=== PATIENT | male | born 1940 | race Caucasian/White ===

== ENCOUNTER → 2016-11-07 | Outpatient (CLI) | payer OTHER ==
--- NOTE | 2016-11-08 13:49 | MR ---
EXAMINATION TYPE: MR lumbar spine wo con DATE OF EXAM: 11/07/2016 11:19 AM COMPARISON: 03/21/2014 HISTORY: low back pain for many years CONTRAST: 0 mL intravenous Omniscan. TECHNIQUE: Multiplanar, multisequence images of the lumbar spine were acquired. FINDINGS: L5-S1: There is loss of disc height is level. Residual disc bulge has mild anterior thecal sac compre ssion. This may be slightly greater to the right paracentral region. Correlate with right S1 radicula r symptoms. Mild facet hypertrophy is present. The foramen are patent L4-L5: There is a central disc herniation with mild anterior thecal sac compression. No AP spinal can al stenosis present. Facet hypertrophy and ligamentum flavum laxity is present. Neural foramen are pa tent. L3-L4: Minimal disc bulge is present with anterior thecal sac flattening. No spinal canal stenosis. No foraminal stenosis. Facet hypertrophy is present.. L2-L3: No significant disc bulge or disc herniation. No spinal canal stenosis. No foraminal stenosi s. Neural foramen are patent.. L1-L2: No significant disc bulge or disc herniation. No spinal canal stenosis. No foraminal stenosi s. Neural foramen are patent.. T12-L1: No significant disc bulge or disc herniation. No spinal canal stenosis. No foraminal stenos is. Neural foramen are patent.. Exam is stable from prior study. IMPRESSION: 1. Central disc herniation L5-S1 with degenerative disc changes. This likely is right S1 nerve root c ompression. Correlate with radicular symptoms. 2. Central disc bulging L4-5 with mild anterior thecal sac compression. 3. Examination appears stable from 2013
== END | disposition home or self-care (01) ==
LOC: RADMRIMAIN 10:23
PROVIDERS: ATTEND Physician Assistant
DX: M51.27 Other intervertebral disc displacement, lumbosacral region (principal); M51.37 Other intervertebral disc degeneration, lumbosacral region
CPT/HCPCS: 72148

== ENCOUNTER → 2017-05-21 | Outpatient (CLI) | payer OTHER ==
--- NOTE | 2017-05-21 12:43 | MR ---
EXAMINATION TYPE: MR hips BILAT wo con DATE OF EXAM: 05/21/2017 COMPARISON: NONE HISTORY: loose body deshaun hips, hip pain Standard multiplanar, multisequence MRI departmental protocol Multiplanar, multisequence images of both hips were acquired. Diffusion weighted imaging was performe d. FINDINGS: Right hip: There is cephalad joint space narrowing and acetabular roof sclerosis. Labrum is grossly i ntact given the limitation of a nonarthrographic study. Small joint effusion is seen just superior to the ligamentum teres with intermediate signal complexity most suggestive of mild synovitis. Small ibarra bchondral cysts are seen of the posterior acetabular roof from osteoarthropathy. No evidence of acute fracture or dislocation. No bone marrow edema. No evidence of femoral head flattening. No MR evidenc e of avascular necrosis. Left hip: There is cephalad joint space narrowing and acetabular sclerosis. No subchondral cysts are seen within the acetabulum or femoral head. No evidence of joint effusion. No fracture or dislocation . No bone marrow edema. No flattening of the femoral head. No evidence of avascular necrosis. Artifac t is seen on the sagittal image through the anterior acetabulum abutting the anterior labrum although no discrete labral abnormality is seen given the limitations of a nonarthrogram examination. 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 Additionally ther e is decreased T2 signal of the peripheral zones in a somewhat linear fashion. No small [id number] images for prostate protocol were obtained to evaluate for discrete suspicious nodular regions. IMPRESSION: 1. Small right hip joint effusion with synovitis. 2. 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 3. No gross evidence of labral tear given the limitations of this nonarthrographic examination. 4. Diffuse heterogeneity and prosthetic last enlargement with at least moderate central gland benign prostatic hyperplasia. Decreased signal in the peripheral zones suggests at least chronic prostatitis , however evaluation for suspicious nodule is limited on this exam. Correlate with history and trendi ng PSA.
== END | disposition home or self-care (01) ==
LOC: RADMRIMAIN 08:30
PROVIDERS: ATTEND Physician Assistant Medical
DX: M16.0 Bilateral primary osteoarthritis of hip (principal); M65.88 Other synovitis and tenosynovitis, other site

== ENCOUNTER 2018-09-01 22:02 | Emergency (ER) | payer OTHER, MEDICARE ==
[2018-09-01 22:21] VITALS: RESP 18
[2018-09-01] MEDS ORDERED: IBUPROFEN 400 MG TAB PO STA (23:14)
--- NOTE | 2018-09-01 23:18 | ED ---
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 Place Fall Occurred: home Loss of Consciousness: none Prolonged Down Time?: no Symptoms Prior to Fall: none Location - Extremities: Left: Forearm Quality: aching Context: tripped/slipped - Related Data Home Medications Medication Instructions Recorded Confirmed Aspirin 325 mg PO DAILY 03/05/14 08/19/16 Benazepril HCl 20 mg PO DAILY 03/05/14 08/19/16 Dipyridamole 50 mg PO QID 03/05/14 08/19/16 Fluticasone Propionate [Flonase] 1 - 2 spray EA NOSTRIL DAILY 03/05/14 08/19/16 Hydrochlorothiazide [Hydrodiuril] 20 mg PO DAILY 03/05/14 08/19/16 Omeprazole [PriLOSEC] 20 mg PO QAM 03/05/14 08/19/16 Zolpidem [Ambien] 10 mg PO HS PRN 03/05/14 08/19/16 amLODIPine [Norvasc] 10 mg PO QAM 03/05/14 08/19/16 valACYclovir [Valtrex] 500 mg PO BID 03/05/14 08/19/16 EPINEPHrine (Auto Inject) [Epipen] 0.3 mg IM ONCE PRN 01/09/15 08/19/16 Multivitamin [Men's Multi-Vitamin] 1 each PO BID 01/09/15 08/19/16 Previous Rx's Medication Instructions Recorded Famotidine [Pepcid] 20 mg PO DAILY #3 tablet 08/20/16 predniSONE 50 mg PO DAILY #3 tab 08/20/16 Ibuprofen [Motrin] 600 mg PO Q8HR PRN #20 tab 09/02/18 Allergies Allergy/AdvReac Type Severity Reaction Status Date / Time clopidogrel bisulfate Allergy Itching Verified 09/01/18 23:55 [From Plavix] venom-honey bee Allergy Swelling Verified 09/01/18 23:55 [bee venom (honey bee)] Review of Systems ROS Statement: Those systems with pertinent positive or pertinent negative responses have been documented in the HPI. ROS Other: All systems not noted in ROS Statement are negative. Constitutional: Denies: weakness Eyes: Denies: vision change Respiratory: Denies: cough, dyspnea Cardiovascular: Denies: chest pain, syncope Gastrointestinal: Denies: abdominal pain Musculoskeletal: Reports: as per HPI, myalgia. 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 [place]-HAS HEARING AIDES BUT DOESN'T WEAR THEM. ENLARGED PROSTATE, BILAT CATARACTS, HYPOGLYCEMIA, HITAL HERNIA History of Any Multi-Drug Resistant Organisms: None Reported Additional Past Surgical History / Comment(s): HX BUNIONECTOMY, COLONOSCOPY Past Anesthesia/Blood Transfusion Reactions: Motion Sickness Additional Past Anesthesia/Blood Transfusion Reaction / Comment(s): HX MENIERE' S DISEASE Past Psychological History: No Psychological Hx Reported Smoking Status: Never smoker Past Alcohol Use History: Occasional Past Drug Use History: None Reported General Exam Limitations: no limitations General appearance: alert, in no apparent distress Head exam: Present: atraumatic, normocephalic Eye exam: Present: normal appearance, PERRL, EOMI. Absent: scleral icterus, conjunctival injection Neck exam: Present: normal inspection, full ROM. Absent: tenderness Respiratory exam: Absent: chest wall tenderness GI/Abdominal exam: Absent: tenderness, guarding, rebound Extremities exam: Present: full ROM, tenderness, normal capillary refill Left Shoulder Exam: Present: normal inspection, full ROM. Absent: tenderness, swelling Upper Arm exam: Present: full ROM, tenderness, swelling, ecchymosis. Absent: abrasion, laceration, deformity, crepidus, dislocation, erythema Elbow exam: Present: normal inspection, full ROM. Absent: tenderness, swelling Forearm Wrist exam: Present: full ROM, tenderness, swelling, ecchymosis. Absent : abrasion, laceration, deformity, crepitus, dislocation Hand Wrist exam: Present: normal inspection, full ROM. Absent: tenderness, swelling Neurosensory exam: Present: radial nerve intact, ulnar nerve intact, median nerve intact Vascular: Present: normal capillary refill, radial pulse (Normal) Back exam: Absent: paraspinal tenderness, vertebral tenderness Neurological exam: Present: alert Skin exam: Present: warm, dry, intact, normal color. Absent: rash Course Vital Signs 09/01/18 22:16 Temperature 98.5 F Pulse Rate 88 Respiratory 18 Rate Blood Pressure 181/75 O2 Sat by Pulse 97 Oximetry Disposition Clinical Impression: Fall, Contusion of arm, left, multiple sites Disposition: HOME SELF-CARE Condition: Good Instructions: Contusion in Adults (ED) Prescriptions: Ibuprofen [Motrin] 600 mg PO Q8HR PRN #20 tab PRN Reason: Pain Is patient prescribed a controlled substance at d/c from ED?: No Referrals: Fidel Harmon DO [Primary Care Provider] - 1-2 days
--- NOTE | 2018-09-02 00:08 | XR ---
EXAMINATION TYPE: XR forearm LT DATE OF EXAM: 09/01/2018 COMPARISON: NONE HISTORY: Fall. Pain. TECHNIQUE: 2 views FINDINGS: The radius and ulna appear intact. I see no fracture nor dislocation. Elbow joint and wrist joint appear intact. IMPRESSION: Negative left forearm exam. Small spur noted on the olecranon process of the ulna.
[2018-09-02 00:41] VITALS: BP 166/91; PULSE 80; TEMP 98
== END 2018-09-02 00:44 | disposition home or self-care (01) ==
LOC: EC 22:02
DX: S40.022A Contusion of left upper arm, initial encounter (principal); S50.12XA Contusion of left forearm, initial encounter; I10 Essential (primary) hypertension; K21.9 Gastro-esophageal reflux disease without esophagitis; H91.93 Unspecified hearing loss, bilateral; B02.30 Zoster ocular disease, unspecified; Z88.8 Allergy status to other drugs, medicaments and biological substances; Z91.030 Bee allergy status; Z79.51 Long term (current) use of inhaled steroids; Z79.82 Long term (current) use of aspirin; Z79.899 Other long term (current) drug therapy; Z79.02 Long term (current) use of antithrombotics/antiplatelets; Z86.73 Personal history of transient ischemic attack (TIA), and cerebral infarction without residual deficits; Z96.20 Presence of otological and audiological implant, unspecified; W10.9XXA Fall (on) (from) unspecified stairs and steps, initial encounter; Y92.009 Unspecified place in unspecified non-institutional (private) residence as the place of occurrence of the external cause
CPT/HCPCS: 99283

== ENCOUNTER → 2020-02-16 | Outpatient (CLI) | payer OTHER ==
[2020-02-16 18:11] LABS: Gliadin AB IgA, Deaminated NEGATIVE (NEGATIVE); Gliadin AB IgA, Unit 0.3 U/mL; Gliadin AB IgG, Deaminated NEGATIVE (NEGATIVE)
== END | disposition home or self-care (01) ==
LOC: LABWHC1 09:03
PROVIDERS: ATTEND Internal Medicine Gastroenterology
DX: K58.0 Irritable bowel syndrome with diarrhea (principal)
CPT/HCPCS: 36415; 83516

== ENCOUNTER 2021-01-01 08:05 | Emergency (ER) | payer MEDICARE, OTHER ==
[2021-01-01 08:29] VITALS: RESP 18
--- NOTE | 2021-01-01 09:20 | ED ---
General Adult HPI - General Chief complaint: Recheck/Abnormal Lab/Rx Stated complaint: trouble sleeping Time Seen by Provider: 01/01/21 08:35 Source: patient Mode of arrival: ambulatory Limitations: no limitations - History of Present Illness Initial comments: 80-year-old male with a past medical history of CVA, GERD, hypertension was in city emergency room for a chief complaint of balance issues. Patient states that for quite some time at least several months he has had it states he has been seeing his primary care provider for this and being worked up for Parkinson's. States that he days ago he lost his balance and hit his head against the wall. Patient states he also has not been able to sleep well for the past 2 months. He states this is "getting to him." Patient was not sure what to do so came to the ER.Patient has no other complaints at this time including shortness of breath, chest pain, abdominal pain, nausea or vomiting, headache, or visual changes. - Related Data Home Medications Medication Instructions Recorded Confirmed Aspirin 325 mg PO DAILY 03/05/14 08/19/16 Dipyridamole 50 mg PO QID 03/05/14 08/19/16 Omeprazole [PriLOSEC] 20 mg PO QAM 03/05/14 08/19/16 Zolpidem [Ambien] 10 mg PO HS PRN 03/05/14 08/19/16 amLODIPine [Norvasc] 10 mg PO QAM 03/05/14 08/19/16 hydroCHLOROthiazide [Hydrodiuril] 20 mg PO DAILY 03/05/14 08/19/16 EPINEPHrine (Auto Inject) [Epipen] 0.3 mg IM ONCE PRN 01/09/15 08/19/16 Multivitamin [Men's Multi-Vitamin] 1 each PO BID 01/09/15 08/19/16 Acyclovir 400 mg PO BID 01/01/21 01/01/21 Allopurinol [Zyloprim] 100 mg PO DAILY 01/01/21 01/01/21 Benazepril HCl 40 mg PO DAILY 01/01/21 01/01/21 Bimatoprost [Lumigan .01% Ophth 1 drop BOTH EYES HS 01/01/21 01/01/21 Soln] Dicyclomine [Bentyl] 10 mg PO QID 01/01/21 01/01/21 Finasteride [Proscar] 5 mg PO DAILY 01/01/21 01/01/21 Potassium Chloride ER [K-Dur 20] 20 meq PO BID 01/01/21 01/01/21 Tadalafil [Cialis] 5 mg PO DAILY 01/01/21 01/01/21 Allergies Allergy/AdvReac Type Severity Reaction Status Date / Time clopidogrel bisulfate Allergy Itching Verified 01/01/21 12:56 [From Plavix] venom-honey bee Allergy Swelling Verified 01/01/21 12:56 [bee venom (honey bee)] Review of Systems ROS Statement: Those systems with pertinent positive or pertinent negative responses have been documented in the HPI. ROS Other: All systems not noted in ROS Statement are negative. 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 [place]-HAS HEARING AIDES BUT DOESN'T WEAR THEM. ENLARGED PROSTATE, BILAT CATARACTS, HYPOGLYCEMIA, HITAL HERNIA History of Any Multi-Drug Resistant Organisms: None Reported Additional Past Surgical History / Comment(s): HX BUNIONECTOMY, COLONOSCOPY Past Anesthesia/Blood Transfusion Reactions: Motion Sickness Additional Past Anesthesia/Blood Transfusion Reaction / Comment(s): HX MENIERE'S DISEASE Past Psychological History: No Psychological Hx Reported Smoking Status: Never smoker Past Alcohol Use History: Occasional Past Drug Use History: None Reported General Exam Limitations: no limitations General appearance: alert, in no apparent distress Head exam: Present: atraumatic, normocephalic, normal inspection Eye exam: Present: normal appearance, PERRL, EOMI. Absent: scleral icterus, conjunctival injection, periorbital swelling ENT exam: Present: normal exam, mucous membranes moist Neck exam: Present: normal inspection, full ROM. Absent: tenderness, meningismus, lymphadenopathy Respiratory exam: Present: normal lung sounds bilaterally. Absent: respiratory distress, wheezes, rales, rhonchi, stridor Cardiovascular Exam: Present: regular rate, normal rhythm, normal heart sounds. Absent: systolic murmur, diastolic murmur, rubs, gallop, clicks GI/Abdominal exam: Present: soft, normal bowel sounds. Absent: distended, tenderness, guarding, rebound, rigid Neurological exam: Present: alert, oriented X3 Course Vital Signs 01/01/21 01/01/21 08:22 11:01 Temperature 97.4 F L 98.0 F Pulse Rate 99 95 Respiratory 18 18 Rate Blood Pressure 200/97 193/97 O2 Sat by Pulse 95 95 Oximetry Medical Decision Making - Medical Decision Making Vitals are stable. Patient is hypertensive but reports he did not take his blood pressure today. He is alert and oriented 3. He is ambulating around the exam room. CBC CMP unremarkable. Urinalysis is negative. CT brain shows atrophy with minimal periventricular chronic-appearing white matter ischemic changes. CT cervical spine shows no acute osseous abnormality. I discussed this case with patient's son Jamil. He reports that these symptoms have been ongoing for quite some time. He states that they're working on getting him diagnosed and into an assisted living home. He does feel the patient is safe to go home. Patient drove to the ER today and is not supposed to drive so therefore his son will pick him up. - Lab Data Result diagrams: 01/01/21 09:17 01/01/21 09:17 Lab Results 01/01/21 01/01/21 01/01/21 Range/Units 09:17 09:17 09:27 WBC 6.9 (3.8-10.6) k/uL RBC 4.49 (4.30-5.90) m/uL Hgb 15.2 (13.0-17.5) gm/dL Hct 41.7 (39.0-53.0) % MCV 92.8 (80.0-100.0) fL MCH 33.8 (25.0-35.0) pg MCHC 36.4 (31.0-37.0) g/dL RDW 12.2 (11.5-15.5) % Plt Count 165 (150-450) k/uL MPV 7.6 Neutrophils % 75 % Lymphocytes % 15 % Monocytes % 6 % Eosinophils % 1 % Basophils % 0 % Neutrophils # 5.2 (1.3-7.7) k/uL Lymphocytes # 1.1 (1.0-4.8) k/uL Monocytes # 0.4 (0-1.0) k/uL Eosinophils # 0.1 (0-0.7) k/uL Basophils # 0.0 (0-0.2) k/uL Sodium 140 (137-145) mmol/L Potassium 3.5 (3.5-5.1) mmol/L Chloride 105 (98-107) mmol/L Carbon Dioxide 27 (22-30) mmol/L Anion Gap 8 mmol/L BUN 13 (9-20) mg/dL Creatinine 0.87 (0.66-1.25) mg/dL Est GFR (CKD-EPI)AfAm >90 (>60 ml/min/1.73 sqM) Est GFR (CKD-EPI)NonAf 83 (>60 ml/min/1.73 sqM) Glucose 194 H (74-99) mg/dL Calcium 9.4 (8.4-10.2) mg/dL Magnesium 1.8 (1.6-2.3) mg/dL Total Bilirubin 0.8 (0.2-1.3) mg/dL AST 34 (17-59) U/L ALT 57 H (4-49) U/L Alkaline Phosphatase 62 (38-126) U/L Total Protein 7.0 (6.3-8.2) g/dL Albumin 4.1 (3.5-5.0) g/dL Urine Color Yellow Urine Appearance Clear (Clear) Urine pH 6.5 (5.0-8.0) Ur Specific Ivor 1.015 (1.001-1.035) Urine Protein 1+ H (Negative) Urine Glucose (UA) Trace H (Negative) Urine Ketones Negative (Negative) Urine Blood Negative (Negative) Urine Nitrite Negative (Negative) Urine Bilirubin Negative (Negative) Urine Urobilinogen <2.0 (<2.0) mg/dL Ur Leukocyte Esterase Negative (Negative) Urine RBC 1 (0-5) /hpf Urine WBC 1 (0-5) /hpf Ur Squamous Epith Cells <1 (0-4) /hpf Urine Mucus Rare H (None) /hpf Disposition Clinical Impression: History of dementia, Insomnia Disposition: HOME SELF-CARE Condition: Good Instructions (If sedation given, give patient instructions): Dementia (ED) Additional Instructions: Please try melatonin at night for sleeping. Try to limit naps during the daytime. Please follow up with primary care in 1-2 days. Return to the emergency room for any worsening symptoms. Is patient prescribed a controlled substance at d/c from ED?: No Referrals: Fidel Harmon DO [Primary Care Provider] - 1-2 days Time of Disposition: 13:04
[2021-01-01 09:35] LABS: Basophils % (A) 0 %; Eosinophils # (A) 0.1 k/uL (0-0.7); Eosinophils % (A) 1 %; HCT 41.7 % (39.0-53.0); HGB 15.2 gm/dL (13.0-17.5); Lymphocytes # (A) 1.1 k/uL (1.0-4.8); Lymphocytes % (A) 15 %; MCH 33.8 pg (25.0-35.0); MCHC 36.4 g/dL (31.0-37.0); MCV 92.8 fL (80.0-100.0); Mean Platelet Volume 7.6; Monocytes # (A) 0.4 k/uL (0-1.0); Monocytes % (A) 6 %; Neutrophils # (A) 5.2 k/uL (1.3-7.7); Neutrophils % (A) 75 %; Platelet Count 165 k/uL (150-450); RBC 4.49 m/uL (4.30-5.90); RDW 12.2 % (11.5-15.5); WBC 6.9 k/uL (3.8-10.6)
[2021-01-01 09:36] LABS: Appearance,Urine Clear (Clear); Bilirubin,Urine Negative (Negative); Blood,Urine Negative (Negative); Color,Urine Yellow; Glucose,Urine (UA) Trace (Negative); Ketones,Urine Negative (Negative); Leukocyte Esterase,Urine Negative (Negative); Mucus,Urine Rare /hpf; Nitrite,Urine Negative (Negative); PH, Urine 6.5 (5.0-8.0); Protein,Urine 1+ (Negative); RBC,Urine 1 /hpf (0-5); Specific Gravity,Urine 1.015 (1.001-1.035); Squamous Epithelial Cell,Urine <1 /hpf (0-4); Urobilinogen,Urine <2.0 mg/dL (<2.0); WBC,Urine 1 /hpf (0-5)
[2021-01-01 09:55] LABS: ALT 57 U/L (4-49); AST 34 U/L (17-59); African American GFR (CKD) >90 (>60 ml/min/1.73 sqM); Albumin 4.1 g/dL (3.5-5.0); Alkaline Phosphatase 62 U/L (38-126); Anion Gap 8 mmol/L; Blood Urea Nitrogen 13 mg/dL (9-20); Calcium 9.4 mg/dL (8.4-10.2); Carbon Dioxide 27 mmol/L (22-30); Chloride 105 mmol/L (98-107); Glucose 194 mg/dL (74-99); Magnesium 1.8 mg/dL (1.6-2.3); Non-African American GFR(CKD) 83 (>60 ml/min/1.73 sqM); Potassium 3.5 mmol/L (3.5-5.1); Sodium 140 mmol/L (137-145); Total Bilirubin 0.8 mg/dL (0.2-1.3)
--- NOTE | 2021-01-01 09:55 | CT ---
EXAMINATION TYPE: CT brain cspine wo con DATE OF EXAM: 01/01/2021 COMPARISON: 06/14/2010 HISTORY: Fall, abrasion to forehead CT DLP: 1403 mGycm, Automated exposure control for dose reduction was used. CONTRAST: None CT of the brain is performed utilizing 3 mm thick sections through the posterior fossa and 3 mm thick sections through the remaining calvarium. Study is performed within 24 hours of arrival to the hospital. No abnormal hyperdensity is present to suggest an acute intracranial hemorrhage. No mass lesion is evident. No acute infarcts are evident. Minimal periventricular white matter hypodensity is present, likely o n the basis of chronic white matter ischemic change. Ventricles and sulci are prominent for the patient age. Paranasal sinuses and mastoid air cells within the [id number] are clear. No acute fractures are ev ident. No significant soft tissue swelling is evident. IMPRESSIONS: 1. Atrophy with minimal periventricular chronic appearing white matter ischemic changes CT cervical spine. COMPARISON: None CT of the cervical spine is performed in the axial plane at 2 mm thick sections. Reconstructed image s in the coronal, and sagittal plane are reviewed on the computer. No acute fractures are evident. Vertebral body alignment is normal. Diffuse disc space narrowing is present. Vertebral body heights are preserved. No spinal canal stenosis is evident. Vertebral joint hypertrophy is present C5-6 with moderate right and mild left foraminal stenosis some additional mild uncovertebral joint hypertrophy is present without stenosis within the remaining cer vical spine. Azygos fissure is noted within the lung lung apices, lung apices appear clear. IMPRESSIONS: 1. No acute osseous abnormality cervical spine. 2. Some mild to moderate foraminal narrowing at the C5-6 level is present from uncovertebral joint op portunity
[2021-01-01] MEDS ORDERED: amLODIPine 10 MG TAB PO STA (12:19)
[2021-01-01 13:42] VITALS: BP 178/90; PULSE 80; TEMP 98.6
== END 2021-01-01 13:42 | disposition home or self-care (01) ==
LOC: EC 08:05
DX: G47.00 Insomnia, unspecified (principal); K21.9 Gastro-esophageal reflux disease without esophagitis; I10 Essential (primary) hypertension; N40.0 Benign prostatic hyperplasia without lower urinary tract symptoms; H81.09 Meniere's disease, unspecified ear; Z86.59 Personal history of other mental and behavioral disorders; Z86.73 Personal history of transient ischemic attack (TIA), and cerebral infarction without residual deficits
CPT/HCPCS: 36415; 70450; 72125; 80053; 81001; 83735; 85025; 93005; 99284

== ENCOUNTER 2021-01-15 14:56 | Inpatient (IN) | payer MEDICARE ==
[2021-01-15] MEDS ORDERED: SODIUM CHLORIDE 0.9% 1,000 ML IV STA (15:36)
--- NOTE | 2021-01-15 15:43 | ED ---
General Adult HPI - General Chief complaint: Fall Stated complaint: Fall, headache Time Seen by Provider: 01/15/21 15:27 Source: patient Mode of arrival: wheelchair Limitations: no limitations - History of Present Illness Initial comments: Dictation was produced using [employer] dictation software. please excuse any grammatical, word or spelling errors. This patient was cared for during a federal and state declared state of emergency secondary to Covid 19 Chief Complaint: 80-year-old male presents after fall History of Present Illness: Patient is a 80-year-old male he has past medical history of stroke, hypertension, prostate disease presents to the emergency department after fall. Patient lives at home by himself however his son who lives in [place] has been staying with him on a rotating schedule with his other siblings. Today he has been very confused and seemingly much more weak than usual. Son went to attend to something else and left the patient unattended. He realizes that patient was taking too long to get ready so he went to check on him. He found him on the floor. There is suspicion that he slipped and fell. Patient has been increasingly weak for the last month. He has not been formally diagnosed with dementia however after appointment with primary care physician they did make an appointment to have patient follow up with the neurologist. That appointment has not occurred yet. Rapid declining for the last month with increased frequency and intensity of bouts of confusion and bizarre behavior. Son is also concerned that patient was having bouts of hematuria. Patient is an unreliable historian. He however does answer some basic questions. He denies any pain at this time. Reports that he is here in the emergency department for evaluation of hematuria. He did not mention anything about the fall. The ROS documented in this emergency department record has been reviewed and confirmed by me. Those systems with pertinent positive or negative responses have been documented in the HPI. All other systems are other negative and/or noncontributory. PHYSICAL EXAM: General Impression: Alert and oriented x2/4, not in acute distress HEENT: Normocephalic atraumatic, extra-ocular movements intact, pupils equal and reactive to light bilaterally, mucous membranes moist. Cardiovascular: Heart regular rate and rhythm Chest: Able to complete full sentences, no retractions, no tachypnea Abdomen: abdomen soft, non-tender, non-distended, no organomegaly Musculoskeletal: Pulses present and equal in all extremities, no peripheral edema Motor: no focal deficits noted Neurological: CN II-XII grossly intact, no focal motor or sensory deficits noted Skin: Intact with no visualized rashes ED course: 80-year-old male presents after fall. He's been having increasing mental status changes over the last month according the son. Patient lives by himself however has family staying with them. Vital signs upon arrival shows heart rate of 118, rest of vital signs within acceptable limits. There is concern for subacute delirium. Laboratory evaluation obtained. CBC, coag panel within acceptable limits. Metabolic panel is within acceptable limits. Urinalysis shows 3+ glucose, moderate blood and 47 red blood cells. Computed tomography scan of the brain shows no acute processes. Chest x-ray showed a small nondisplaced rib fracture of the left rib 9 posterolaterally. Patient did have some point tenderness there. Given the patient had new-onset hematuria and rib fractures concern of renal laceration. CT of the chest abdomen pelvis shows no acute thoracic or abdominal pelvic process. There is a large prostate gland. Patient became uncooperative Tranny get out of bed. Scott catheter was placed. At this point no obvious source of patient's acute delirium. Patient be admitted with neurology consultation. Case discussed with Dr. Langley was went except patient's care. EKG interpretation: Ventricular rate 100, sinus rhythm, MT interval 186, QRS 80, QTc 446. No MT prolongation, no QTC prolongation, no ST or T-wave changes noted. EKG compared to 01/01/2021 showing no changes. Overall, this EKG is unremarkable - Related Data Home Medications Medication Instructions Recorded Confirmed Aspirin 325 mg PO DAILY 03/05/14 01/15/21 Dipyridamole 50 mg PO QID 03/05/14 01/15/21 Omeprazole [PriLOSEC] 20 mg PO BID 03/05/14 01/15/21 amLODIPine [Norvasc] 10 mg PO DAILY 03/05/14 01/15/21 hydroCHLOROthiazide [Hydrodiuril] 50 mg PO DAILY 03/05/14 01/15/21 EPINEPHrine (Auto Inject) [Epipen] 0.3 mg IM ONCE PRN 01/09/15 01/15/21 Acyclovir 400 mg PO BID 01/01/21 01/15/21 Allopurinol [Zyloprim] 100 mg PO HS 01/01/21 01/15/21 Benazepril HCl 40 mg PO DAILY 01/01/21 01/15/21 Bimatoprost [Lumigan .01% Ophth 1 drop BOTH EYES HS 01/01/21 01/15/21 Soln] Dicyclomine [Bentyl] 10 mg PO TID PRN 01/01/21 01/15/21 Finasteride [Proscar] 5 mg PO DAILY 01/01/21 01/15/21 Potassium Chloride ER [K-Dur 20] 40 meq PO DAILY 01/01/21 01/15/21 Tadalafil [Cialis] 5 mg PO DAILY 01/01/21 01/15/21 Potassium Chloride ER [K-Dur 20] 20 meq PO HS 01/15/21 01/15/21 Vit C/E/Zn/Coppr/Lutein/Zeaxan 1 cap PO DAILY 01/15/21 01/15/21 [Preservision Areds 2 Softgel] rOPINIRole HCL [Requip] 0.25 mg PO HS 01/15/21 01/15/21 Allergies Allergy/AdvReac Type Severity Reaction Status Date / Time clopidogrel bisulfate Allergy Itching Verified 01/15/21 17:17 [From Plavix] shellfish derived [Shellfish] Allergy Anaphylaxis Verified 01/15/21 17:17 venom-honey bee Allergy Swelling Verified 01/15/21 17:17 [bee venom (honey bee)] Review of Systems ROS Statement: Those systems with pertinent positive or pertinent negative responses have been documented in the HPI. ROS Other: All systems not noted in ROS Statement are negative. 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 CROW-HAS HEARING AIDES BUT DOESN'T WEAR THEM. ENLARGED PROSTATE, BILAT CATARACTS, HYPOGLYCEMIA, HITAL HERNIA History of Any Multi-Drug Resistant Organisms: None Reported Additional Past Surgical History / Comment(s): HX BUNIONECTOMY, COLONOSCOPY Past Anesthesia/Blood Transfusion Reactions: Motion Sickness Additional Past Anesthesia/Blood Transfusion Reaction / Comment(s): HX MENIERE'S DISEASE Past Psychological History: No Psychological Hx Reported Smoking Status: Never smoker Past Alcohol Use History: Occasional Past Drug Use History: None Reported General Exam Limitations: no limitations Course Vital Signs 01/15/21 01/15/21 15:09 16:17 Temperature 98.2 F Pulse Rate 118 H 81 Respiratory 18 Rate Blood Pressure 150/86 O2 Sat by Pulse 97 Oximetry Medical Decision Making - Lab Data Result diagrams: 01/15/21 16:07 01/15/21 16:07 Lab Results 01/15/21 01/15/21 01/15/21 Range/Units 16:02 16:05 16:07 WBC (3.8-10.6) k/uL RBC (4.30-5.90) m/uL Hgb (13.0-17.5) gm/dL Hct (39.0-53.0) % MCV (80.0-100.0) fL MCH (25.0-35.0) pg MCHC (31.0-37.0) g/dL RDW (11.5-15.5) % Plt Count (150-450) k/uL MPV Neutrophils % % Lymphocytes % % Monocytes % % Eosinophils % % Basophils % % Neutrophils # (1.3-7.7) k/uL Lymphocytes # (1.0-4.8) k/uL Monocytes # (0-1.0) k/uL Eosinophils # (0-0.7) k/uL Basophils # (0-0.2) k/uL PT (9.0-12.0) sec INR (<1.2) APTT (22.0-30.0) sec Sodium (137-145) mmol/L Potassium (3.5-5.1) mmol/L Chloride (98-107) mmol/L Carbon Dioxide (22-30) mmol/L Anion Gap mmol/L BUN (9-20) mg/dL Creatinine (0.66-1.25) mg/dL Est GFR (CKD-EPI)AfAm (>60 ml/min/1.73 sqM) Est GFR (CKD-EPI)NonAf (>60 ml/min/1.73 sqM) Glucose (74-99) mg/dL POC Glucose (mg/dL) 232 H (75-99) mg/dL POC Glu Nurse Transition ID Alissa Aranda Calcium (8.4-10.2) mg/dL Total Bilirubin (0.2-1.3) mg/dL AST (17-59) U/L ALT (4-49) U/L Alkaline Phosphatase (38-126) U/L Total Protein (6.3-8.2) g/dL Albumin (3.5-5.0) g/dL Urine Color Urine Appearance (Clear) Urine pH (5.0-8.0) Ur Specific [place] (1.001-1.035) Urine Protein (Negative) Urine Glucose (UA) (Negative) Urine Ketones (Negative) Urine Blood (Negative) Urine Nitrite (Negative) Urine Bilirubin (Negative) Urine Urobilinogen (<2.0) mg/dL Ur Leukocyte Esterase (Negative) Urine RBC (0-5) /hpf Urine WBC (0-5) /hpf Hyaline Casts (0-2) /lpf Urine Mucus (None) /hpf Blood Type A Negative Blood Type Confirm A Negative Blood Type Recheck No Previous Record Bld Type Recheck Status CABO Indicated Antibody Screen NEGATIVE Spec Expiration Date 01/18/2021 - 230601/15/21 01/15/21 01/15/21 Range/Units 16:07 16:07 16:07 WBC 13.2 H (3.8-10.6) k/uL RBC 4.85 (4.30-5.90) m/uL Hgb 16.1 (13.0-17.5) gm/dL Hct 44.9 (39.0-53.0) % MCV 92.5 (80.0-100.0) fL MCH 33.2 (25.0-35.0) pg MCHC 35.9 (31.0-37.0) g/dL RDW 12.1 (11.5-15.5) % Plt Count 195 (150-450) k/uL MPV 7.6 Neutrophils % 81 % Lymphocytes % 10 % Monocytes % 7 % Eosinophils % 0 % Basophils % 0 % Neutrophils # 10.7 H (1.3-7.7) k/uL Lymphocytes # 1.4 (1.0-4.8) k/uL Monocytes # 0.9 (0-1.0) k/uL Eosinophils # 0.0 (0-0.7) k/uL Basophils # 0.0 (0-0.2) k/uL PT 10.2 (9.0-12.0) sec INR 0.9 (<1.2) APTT 22.6 (22.0-30.0) sec Sodium 137 (137-145) mmol/L Potassium 3.7 (3.5-5.1) mmol/L Chloride 98 (98-107) mmol/L Carbon Dioxide 27 (22-30) mmol/L Anion Gap 12 mmol/L BUN 22 H (9-20) mg/dL Creatinine 0.96 (0.66-1.25) mg/dL Est GFR (CKD-EPI)AfAm 88 (>60 ml/min/1.73 sqM) Est GFR (CKD-EPI)NonAf 76 (>60 ml/min/1.73 sqM) Glucose 212 H (74-99) mg/dL POC Glucose (mg/dL) (75-99) mg/dL POC Glu Nurse Transition ID Calcium 10.4 H (8.4-10.2) mg/dL Total Bilirubin 0.8 (0.2-1.3) mg/dL AST 38 (17-59) U/L ALT 64 H (4-49) U/L Alkaline Phosphatase 72 (38-126) U/L Total Protein 7.7 (6.3-8.2) g/dL Albumin 4.6 (3.5-5.0) g/dL Urine Color Urine Appearance (Clear) Urine pH (5.0-8.0) Ur Specific [place] (1.001-1.035) Urine Protein (Negative) Urine Glucose (UA) (Negative) Urine Ketones (Negative) Urine Blood (Negative) Urine Nitrite (Negative) Urine Bilirubin (Negative) Urine Urobilinogen (<2.0) mg/dL Ur Leukocyte Esterase (Negative) Urine RBC (0-5) /hpf Urine WBC (0-5) /hpf Hyaline Casts (0-2) /lpf Urine Mucus (None) /hpf Blood Type Blood Type Confirm Blood Type Recheck Bld Type Recheck Status Antibody Screen Spec Expiration Date 01/15/21 Range/Units 16:48 WBC (3.8-10.6) k/uL RBC (4.30-5.90) m/uL Hgb (13.0-17.5) gm/dL Hct (39.0-53.0) % MCV (80.0-100.0) fL MCH (25.0-35.0) pg MCHC (31.0-37.0) g/dL RDW (11.5-15.5) % Plt Count (150-450) k/uL MPV Neutrophils % % Lymphocytes % % Monocytes % % Eosinophils % % Basophils % % Neutrophils # (1.3-7.7) k/uL Lymphocytes # (1.0-4.8) k/uL Monocytes # (0-1.0) k/uL Eosinophils # (0-0.7) k/uL Basophils # (0-0.2) k/uL PT (9.0-12.0) sec INR (<1.2) APTT (22.0-30.0) sec Sodium (137-145) mmol/L Potassium (3.5-5.1) mmol/L Chloride (98-107) mmol/L Carbon Dioxide (22-30) mmol/L Anion Gap mmol/L BUN (9-20) mg/dL Creatinine (0.66-1.25) mg/dL Est GFR (CKD-EPI)AfAm (>60 ml/min/1.73 sqM) Est GFR (CKD-EPI)NonAf (>60 ml/min/1.73 sqM) Glucose (74-99) mg/dL POC Glucose (mg/dL) (75-99) mg/dL POC Glu Nurse Transition ID Calcium (8.4-10.2) mg/dL Total Bilirubin (0.2-1.3) mg/dL AST (17-59) U/L ALT (4-49) U/L Alkaline Phosphatase (38-126) U/L Total Protein (6.3-8.2) g/dL Albumin (3.5-5.0) g/dL Urine Color Yellow Urine Appearance Clear (Clear) Urine pH 5.5 (5.0-8.0) Ur Specific [place] 1.020 (1.001-1.035) Urine Protein 1+ H (Negative) Urine Glucose (UA) 3+ H (Negative) Urine Ketones Negative (Negative) Urine Blood Moderate H (Negative) Urine Nitrite Negative (Negative) Urine Bilirubin Negative (Negative) Urine Urobilinogen <2.0 (<2.0) mg/dL Ur Leukocyte Esterase Negative (Negative) Urine RBC 47 H (0-5) /hpf Urine WBC 3 (0-5) /hpf Hyaline Casts 3 H (0-2) /lpf Urine Mucus Rare H (None) /hpf Blood Type Blood Type Confirm Blood Type Recheck Bld Type Recheck Status Antibody Screen Spec Expiration Date Disposition Clinical Impression: Altered mental status Disposition: ADMITTED IP TO THIS [facility] Condition: Fair Referrals: Fidel Harmon DO [Primary Care Provider] - 1-2 days Decision Time: 19:36
--- NOTE | 2021-01-15 15:52 | CT ---
EXAMINATION TYPE: CT brain jazmine snell DATE OF EXAM: 01/15/2021 COMPARISON: Trauma CT 2 weeks ago. HISTORY: Fall injury with headache and neck pain. CT DLP: 1340.8 mGycm. Automated Exposure Control for Dose Reduction was Utilized. TECHNIQUE: CT scan of the head and cervical spine are performed without contrast. FINDINGS: There is no acute intracranial hemorrhage or midline shift identified. Moderate ventricul ar and sulcal prominence redemonstrated. The degree of ventricular prominence slightly out of proport ion to degree of sulcal effacement, normal pressure hydrocephalus not excluded. No significant change from most recent prior study. Moderate Low-attenuation in the deep and periventricular white matter is redemonstrated. The calvarium is intact. The globes are intact and the visualized sinuses are sami r. Cervical spine is visualized in its entirety from C1 through upper thoracic levels and redemonstrates levoconvex scoliotic curvature centered upper thoracic spine without evidence of acute fracture or d islocation. Prevertebral soft tissue appears within normal limits. The C1-C2 articulation remains w ithin normal limits on the coronal images. Loss of normal cervical curvature on sagittal images simil ar to prior. Vertebral body heights are maintained. There is [id number] disc space narrowing an d spurring at C5-C6 level redemonstrated. Posterior spur disc complexes if anterior thecal sac at C3- C4 and C5-C6 level similar to prior. Axial images show multilevel uncovertebral facet degenerative ch anges contributing to multilevel bilateral neural foraminal narrowing for reference left C3-C4 level axial image 41 noted. Thyroid gland is stable and somewhat small in size. Lung apices show no pneumot horax. Moderate calcified plaque right greater than left carotid bulbs is redemonstrated. Some nonspe cific tiny round lucent lesions throughout the cervical vertebra are redemonstrated, for reference ro ughly 5 distinct lesions C2 level coronal image 21. Correlate clinically to exclude multiple myeloma. IMPRESSION: 1. There is no acute fracture or dislocation evident in the cervical spine. 2. No acute intracranial hemorrhage or midline shift is seen. No significant change from recent CT.
[2021-01-15 16:09] LABS: Glucose,Whole Blood 232 mg/dL (75-99)
[2021-01-15 16:25] LABS: Basophils % (A) 0 %; Eosinophils % (A) 0 %; HCT 44.9 % (39.0-53.0); HGB 16.1 gm/dL (13.0-17.5); Lymphocytes # (A) 1.4 k/uL (1.0-4.8); Lymphocytes % (A) 10 %; MCH 33.2 pg (25.0-35.0); MCHC 35.9 g/dL (31.0-37.0); MCV 92.5 fL (80.0-100.0); Mean Platelet Volume 7.6; Monocytes # (A) 0.9 k/uL (0-1.0); Monocytes % (A) 7 %; Neutrophils # (A) 10.7 k/uL (1.3-7.7); Neutrophils % (A) 81 %; Platelet Count 195 k/uL (150-450); RBC 4.85 m/uL (4.30-5.90); RDW 12.1 % (11.5-15.5); WBC 13.2 k/uL (3.8-10.6)
[2021-01-15 16:38] LABS: Albumin 4.6 g/dL (3.5-5.0); Calcium 10.4 mg/dL (8.4-10.2); Potassium 3.7 mmol/L (3.5-5.1); Total Bilirubin 0.8 mg/dL (0.2-1.3); Total Protein 7.7 g/dL (6.3-8.2)
[2021-01-15 16:41] LABS: INR 0.9 (<1.2); Partial Thromboplastin Time 22.6 sec (22.0-30.0); Prothrombin Time 10.2 sec (9.0-12.0)
--- NOTE | 2021-01-15 16:54 | XR ---
EXAMINATION TYPE: XR chest 1V portable DATE OF EXAM: 01/15/2021 CLINICAL HISTORY: fall. Altered mental status. TECHNIQUE: Frontal view of the chest. COMPARISON: 06/16/2010 FINDINGS: The cardiomediastinal silhouette is within normal limits for size. Pulmonary vasculature i s normal. Redemonstrated normal variant azygos lobe. There is no focal air space opacity. No pleural effusion. No pneumothorax seen. Questionable nondisplaced rib fracture of posterolateral left rib 9. IMPRESSION: 1. Questionable nondisplaced rib fracture of left rib 9 posterolaterally. Recommend correlation with point tenderness. 2. Otherwise no acute cardiac pulmonary process.
[2021-01-15 17:11] LABS: Appearance,Urine Clear (Clear); Bilirubin,Urine Negative (Negative); Blood,Urine Moderate (Negative); Color,Urine Yellow; Glucose,Urine (UA) 3+ (Negative); Hyaline Casts,Urine 3 /lpf (0-2); Ketones,Urine Negative (Negative); Leukocyte Esterase,Urine Negative (Negative); Mucus,Urine Rare /hpf; Nitrite,Urine Negative (Negative); PH, Urine 5.5 (5.0-8.0); Protein,Urine 1+ (Negative); RBC,Urine 47 /hpf (0-5); Urobilinogen,Urine <2.0 mg/dL (<2.0); WBC,Urine 3 /hpf (0-5)
[2021-01-15] MEDS ORDERED: ACETAMINOPHEN TAB 500 MG TAB PO PRN (18:12)
--- NOTE | 2021-01-15 18:45 | HP ---
HISTORY AND PHYSICAL DATE OF SERVICE: 01/15/2021 CHIEF COMPLAINTS: Change in mental status, dysarthria and fall and headache. 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 Fidel Harmon in the outpatient setting, was apparently living by himself and the family is actually helping out. The patient had a recent fall and subsequently today the patient was found to be confused much more than the usual and the patient also had some weakness on the right side of the body and the patient was also trying to press the button switch which were not there and the patient also suspicion of slipped and fall and the patient was taken to [facility] and was admitted for further evaluation and treatment. The patient is also being evaluated for Parkinson's and dementia also. There is no history of any fever, rigors. No history of headache, loss of consciousness, seizures at this time. PAST MEDICAL HISTORY: GERD, hearing disorders, hypertension, prostate disorder, CVA, TIA. MEDICATIONS: Home medications are: Requip, HydroDIURIL, Norvasc, Cialis, K-Dur, Prilosec, Proscar, EpiPen, dipyridamole, Bentyl, Lumigan, aspirin, allopurinol, Acyclovir. ALLERGIES: PLAVIX, SHELLFISH, HONEY BEE. FAMILY HISTORY: No history of heart disease or strokes in the family. SOCIAL HISTORY: Occasional alcohol. No history of smoking. REVIEW OF SYSTEMS: ENT diminished vision. Diminished hearing. CARDIOVASCULAR system as mentioned earlier. RESPIRATORY: As mentioned earlier. GI no nausea or vomiting. No diarrhea. : No dysuria. Nervous system: As mentioned earlier. ALLERGY/IMMUNOLOGY: No asthma or hayfever. MUSCULOSKELETAL: As mentioned earlier. HEMATOLOGY/ONCOLOGY: No history of anemia. ENDOCRINE: No history of diabetes or hypothyroidism. CONSTITUTIONAL: As mentioned earlier. DERMATOLOGY: Negative. RHEUMATOLOGY: Negative. PSYCHIATRIC: As mentioned earlier. PHYSICAL EXAMINATION: Alert and oriented x2. Dysarthric. Pulse 118, blood pressure 150/88, respiration 18. Temperature 98.2, pulse ox 97% on room air. HEENT: Conjunctivae normal. Oral mucosa moist. NECK is no jugular venous distention. No carotid bruit. No lymph node enlargement. CARDIOVASCULAR system: S1, S2 muffled. RESPIRATORY: Breath sounds diminished in the bases. No rhonchi. No crackles. ABDOMEN: Soft, nontender. No mass palpable. LEGS are no edema. No swelling. NERVOUS SYSTEM: Higher functions normal. Cranial nerves II-XII grossly intact. Otherwise significant weakness and tremors on the right upper limbs compared to left. Otherwise, gait dysfunction present. SKIN: No ulcers, rashes or bleeding. JOINTS: No active deforming arthropathy. LABS: At this time: WBC 13.2 and INR 1.3. Glucose 212 and ALT 64. UA noted 47 RBCs. ASSESSMENT: 1. Change in mental status and confusion, possible acute stroke involving the left hemisphere. 2. Possible deirdre Parkinson's. 3. Possible acute metabolic encephalopathy. 4. Increased WBC. 5. Increased random glucose and possible diabetes type 2. 6. Increased ALT. 7. Rule out dementia. 8. Hematuria. 9. History of cerebrovascular accident, transient ischemic attack. 10.History of gastroesophageal reflux disease. 11.History of hypertension. 12.History of hard of hearing. 13.History of enlarged prostate. 14.History of Meniere's disease. 15.Possible dementia. RECOMMENDATIONS AND DISCUSSION: In this 80-year-old gentleman who presented with multiple complex medical issues, we will monitor the patient closely, continue the current medications, management and symptomatic treatment. We will obtain the stroke workup including carotid Doppler and ultrasound. I would also recommend neurology consultation. Fall precautions. Initiate antiplatelet agents. Otherwise deirdre Parkinsonism is also a possibility as mentioned earlier. There is no obvious evidence of infection at this time. I would recommend cultures and the chest x-ray was personally evaluated by me and showed no acute abnormality. CT scan was reviewed as mentioned earlier. Once again, the prognosis guarded and the living situation is a concern. I recommended the son who is with the patient to get in touch with casework specialist, health care social worker to facilitate discharge at this time. The CT scan showed significant dilatation of the ventricles as well. Once again, the prognosis guarded. Further recommendations to follow. MMODL / IJN: [id number] /
--- NOTE | 2021-01-15 18:55 | CT ---
EXAMINATION TYPE: CT ChestAbdPelvis w con DATE OF EXAM: 01/15/2021 COMPARISON: Same day chest radiograph HISTORY: fall in shower CT DLP: 1530.4 mGycm Automated exposure control for dose reduction was used. TECHNIQUE: CT scan of the chest, abdomen and pelvis is performed without Oral Contrast and with IV Contrast, pat ient injected with 100 mL of Isovue 300. 4 minute delayed imaging obtained. FINDINGS: CHEST: Accessory azygos fissure, normal variant. No focal airspace opacity. There is no pleural effusion or pneumothorax seen. The tracheobronchial tree is patent. No axillary, mediastinal, or hilar lymphadenopathy. No pericardial effusion. Thoracic aorta is normal in caliber. ABDOMEN/PELVIS: Diffusely fatty liver. Gallbladder, pancreas, spleen, and adrenal glands are normal. No hydronephrosi s bilaterally. Too small to characterize hypodense lesions of the bilateral kidneys. 4 minute delayed imaging demonstrates a lateral symmetric contrast excretion of the bilateral kidneys with unremarkab le appearance of the collecting system and ureters. There is motion artifact through the upper abdomen. The bowel loops demonstrate no evidence of obstru ction. Normal appendix. Markedly enlarged heterogenous prostate with protrusion into the base of the urinary bladder. Urinary bladder is distended and otherwise normal. No pneumoperitoneum or ascites. No lymphadenopathy. Abdominal aorta normal in caliber. No acute osseous normality. IMPRESSION: 1. No acute thoracic or abdominopelvic process. 2. Markedly enlarged heterogenous prostate gland with protrusion into the base of the urinary bladder . 3. Fatty liver.
[2021-01-15] MEDS ORDERED: NALOXONE 0.4 MG/ML 1 ML VIAL IV PRN (19:32)
[2021-01-15] MEDS: ASPIRIN 325 MG TAB PO SCH (20:35)
[2021-01-15] MEDS: PANTOPRAZOLE 40 MG TABLET PO SCH (20:36)
[2021-01-15] MEDS: LATANOPROST 0.005% OPHTH DROPS 2.5 ML BTL BOTH EYES SCH (20:36)
[2021-01-15] MEDS: ACYCLOVIR 200 MG CAP PO SCH (20:36)
[2021-01-15] MEDS: allopurinoL 100 MG TAB PO SCH (20:36)
[2021-01-15] MEDS: POTASSIUM CHLORIDE ER 20 MEQ TAB.ER PO SCH (20:37)
[2021-01-15] MEDS: DIPYRIDAMOLE 25 MG TAB PO SCH (20:37)
[2021-01-15] MEDS: HEPARIN SODIUM,PORCINE/PF 5,000 UNIT/0.5 ML SYRINGE SQ SCH (20:42)
[2021-01-15] MEDS ORDERED: LORazepam 2 MG/ML INJ IV STA (22:43)
[2021-01-15] MEDS: HYDROcodone/APAP 5-325MG 1 EACH TAB PO PRN (23:11)
[2021-01-16] MEDS ORDERED: PANTOPRAZOLE 40 MG TABLET PO SCH (07:30)
[2021-01-16 08:07] LABS: Albumin 3.7 g/dL (3.5-5.0); Calcium 9.8 mg/dL (8.4-10.2); Potassium 3.1 mmol/L (3.5-5.1); Total Bilirubin 0.9 mg/dL (0.2-1.3); Total Protein 6.6 g/dL (6.3-8.2)
[2021-01-16 08:16] LABS: Basophils % (A) 0 %; Eosinophils # (A) 0.1 k/uL (0-0.7); Eosinophils % (A) 1 %; HCT 42.8 % (39.0-53.0); HGB 15.6 gm/dL (13.0-17.5); Lymphocytes # (A) 1.3 k/uL (1.0-4.8); Lymphocytes % (A) 14 %; MCH 33.6 pg (25.0-35.0); MCHC 36.4 g/dL (31.0-37.0); MCV 92.3 fL (80.0-100.0); Mean Platelet Volume 7.8; Monocytes # (A) 0.7 k/uL (0-1.0); Monocytes % (A) 7 %; Neutrophils # (A) 7.5 k/uL (1.3-7.7); Neutrophils % (A) 77 %; Platelet Count 187 k/uL (150-450); RBC 4.63 m/uL (4.30-5.90); RDW 12.1 % (11.5-15.5); WBC 9.8 k/uL (3.8-10.6)
[2021-01-16] MEDS: POTASSIUM CHLORIDE ER 20 MEQ TAB.ER PO SCH ×2 (08:50→21:58)
[2021-01-16] MEDS: amLODIPine 10 MG TAB PO SCH (08:50)
[2021-01-16] MEDS: lisinopriL 20 MG TAB PO SCH (08:50)
[2021-01-16] MEDS: ACYCLOVIR 200 MG CAP PO SCH ×2 (08:51→23:32)
[2021-01-16] MEDS: PANTOPRAZOLE 40 MG TABLET PO SCH ×2 (08:51→19:19)
[2021-01-16] MEDS: ASPIRIN 325 MG TAB PO SCH (08:51)
[2021-01-16] MEDS: DIPYRIDAMOLE 25 MG TAB PO SCH ×4 (08:52→23:31)
[2021-01-16] MEDS: FINASTERIDE 5 MG TAB PO SCH (08:54)
[2021-01-16] MEDS: HEPARIN SODIUM,PORCINE/PF 5,000 UNIT/0.5 ML SYRINGE SQ SCH ×2 (08:56→21:58)
[2021-01-16] MEDS ORDERED: POTASSIUM CHLORIDE ER 20 MEQ TAB.ER PO STA (12:00)
[2021-01-16] MEDS ORDERED: Magnesium Replacement Protocol 1 EACH MISC MISCELLANE PRN (12:00)
[2021-01-16] MEDS ORDERED: Potassium Replacement Protocol 1 EACH MISC MISCELLANE PRN (12:00)
--- NOTE | 2021-01-16 12:37 | PN ---
PROGRESS NOTE DATE OF SERVICE: 01/16/2021 This 80-year-old gentleman who was admitted with change in mental status and possibly evaluated for possible acute stroke, is being closely monitored. Patient also has features of Parkinson's right more than the left at this time. Neurology evaluation in progress at this time. Chest, abdomen and pelvis CA scan showed significant prostate enlargement. No chest pain. No palpitations. No fever. PHYSICAL EXAMINATION: Alert and oriented x3. Pulse 87, blood pressure 152/79, respiration 18, temperature 98.7, pulse ox 97% on room air. HEENT: Conjunctivae normal. NECK: No jugular venous distention. CARDIOVASCULAR: S1, S2 muffled. RESPIRATORY: Breath sounds diminished at the bases. No rhonchi, no crackles. ABDOMEN: Soft, nontender. LEGS: No edema, no swelling. NERVOUS SYSTEM: No focal deficits. LABS: WBC 9.8, hemoglobin 15.6. Sodium 137, potassium 3.1. ASSESSMENT: 1. Change in mental status, confusion, possible acute stroke or transient ischemic attack involving the left hemisphere. 2. Parkinson's, right more than the left. 3. Possible change in mental status acute metabolic encephalopathy. 4. Increased WBC. 5. Hypokalemia. 6. Increased random blood sugar and diabetes type 2, possibly. 7. Increased ALT. 8. Rule out dementia. 9. Hematuria. 10.History of cerebrovascular accident, transient ischemic attack. 11.History of gastroesophageal reflux disease. 12.Hypertension. 13.History of hard of hearing. 14.History of enlarged prostate. 15.History of Meniere disease. 16.FULL CODE. RECOMMENDATIONS AND DISCUSSION: This 80-year-old gentleman presented with multiple complex medical issues, we will monitor the patient closely, potassium supplementation, antiplatelet agents. Otherwise, DVT prophylaxis. Neurology consultation. Guarded prognosis because of multiple complex medical issues and I would also recommend a complete neurovascular workup also. Guarded prognosis. Further recommendations to follow. Hemoglobin A1c is being checked. Follow up with Dr. Harmon closely after discharge. MMODL / IJN: [id number] /
--- NOTE | 2021-01-16 14:04 | US ---
EXAMINATION TYPE: US carotid duplex BILAT DATE OF EXAM: 01/16/2021 COMPARISON: CLINICAL HISTORY: stroke. Patient fell. Confused. EXAM MEASUREMENTS: RIGHT: Peak Systolic Velocity (PSV) cm/sec ----- Right CCA: 65.8 ----- Right ICA: 155.4 ----- Right ECA: 86.7 ICA/CCA ratio: 2.4 RIGHT: End Diastole cm/sec ----- Right CCA: 0.0 ----- Right ICA: 16.0 ----- Right ECA: 0.0 LEFT: Peak Systolic Velocity (PSV) cm/sec ----- Left CCA: 68.0 ----- Left ICA: 87.9 ----- Left ECA: 85.3 ICA/CCA ratio: 1.3 LEFT: End Diastole cm/sec ----- Left CCA: 5.4 ----- Left ICA: 8.9 ----- Left ECA: 0.0 VERTEBRALS (direction of flow): Right Vertebral: Antegrade Left Vertebral: Antegrade Rhythm: Normal Bilateral wall thickening. Plaque seen in bilateral bulbs. Elevated right ICA. Right significant st enosis. It was difficult to determine right ICA vs right ECA Grayscale, color Doppler, spectral Doppler imaging performed the carotid arteries. Waveform analysis shows a a suitable elevated velocity proximal internal carotid artery on the right. IMPRESSION: Findings correspond to hemodynamic significant stenosis of the proximal internal carotid artery on the right of approximately 50-69% diameter reduction by Doppler criteria, an indirect freida urement of carotid stenosis. Criteria for Assigning % of Stenosis / Diameter reduction (Estimation based on the indirect measurements of the internal carotid artery velocities (ICA PSV). 1. Normal (no stenosis)=ICA PSV < 125 cm/s: ratio < 2.0: ICA EDV<40 cm/s. 2. Less than 50% stenosis=ICA PSV < 125 cm/s: ratio < 2.0: ICA EDV<40 cm/s. 3. 50 to 69% stenosis=ICA PSV of 125 to 230 cm/s: ration 2.0 ? 4.0: ICA EDV 40-100 cm/s. 4. Greater than 70% stenosis to near occlusion= ICA PSV > 230 cm/s: ratio > 4.0: ICA EDV > 100 cm/s. 5. Near occlusion= ICA PSV velocities may be low or undetectable: variable ratio and ICA EDV. 6. Total occlusion=unable to detect flow.
[2021-01-16 14:40] LABS: Hemoglobin A1C 6.9 % (4.0-6.0)
[2021-01-16] MEDS: VIT A,C & E-LUTEIN-MINERALS 1 EACH TAB PO SCH (19:20)
[2021-01-16] MEDS: allopurinoL 100 MG TAB PO SCH (21:58)
[2021-01-16] MEDS: LATANOPROST 0.005% OPHTH DROPS 2.5 ML BTL BOTH EYES SCH (23:32)
[2021-01-16] MEDS: CARBIDOPA-LEVODOPA 25-100 MG 1 EACH TAB PO SCH (23:32)
--- NOTE | 2021-01-17 00:30 | P.CNNES ---
History of Present Illness Consult date: 01/16/21 Requesting physician: Taisha Langley Reason for Consult: CVA/Parkinsons History of Present Illness: Patient is a 80-year-old male came to the hospital yesterday at 2:56 PM for weakness. Patient's son was also present today, who provided the history. Patient used to live by himself. Apparently on 01/01/2021 patient was reaching down in the closet when he lost balance fell forwards in the wall. He tried to get up and fell again. He did hit his head on certain spot. Patient was able to get up by himself. Patient drove to the hospital by himself the next day. He denies any loss of consciousness, no history of seizure. Patient was evaluated in the ER, and was recommended not to be left alone. Patient's son fo und him a place in the assisted living facility. Patient's son states that yesterday he was acting strange. Patient's son went into the room and he was laying without clothes on. He helped him put clothes on and took him to the shower. In the shower he left faucet running. He was trying to turn the water off in the shower by pushing on the wall on spots anywhere, not able to use the shower handle. He did fall in the shower. Patient also has suffered from falls to other times in the recent past. Vital signs, blood pressure 150/86, pulse rate 118, temperature 98.2. Computed tomography scan of the head showed no acute process. No significant change from previous CT. CT of the cervical spine showed no acute fracture or dislocation. chest x-ray showed questionable nondisplaced rib fracture of the left rib 9 posterolaterally. Recommend correlation with point tenderness. Otherwise no acute cardiopulmonary process. EKG shows sinus rhythm with frequent in consecutive premature ventricle complexes and fusion complexes. CT of abdomen and pelvis showed no acute process. Markedly enlarged heterogenous prostate gland with protrusion into the base of the urinary bladder. Fatty liver. 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 This likely is causing right S1 nerve root compression. Correlate with radicular symptoms. Central disc bulging L4 5 with mild anterior thecal sac compression. Examination stable since 2014 study. Patient's blood test shows normal CBC, PT/PTT, CMP with mildly elevated ALT 64, normal UA. Edwards widest negative. Patient has history of borderline type 2 diabetes. Patient's son states that he has been having memory problems. He would forget to get the dog inside. Sometimes he would forget to take his medications. Patient admits that his handwriting is getting smaller for the last couple months. His son admits that patient is getting more slowing down for the last 1-2 months. Sometimes his hands shake. He is having difficulty getting up from the chair. Patient denies any neck or back pain. He gets frequent leg cramps. Denies any symptoms of p eripheral neuropathy. 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 Review of Systems As mentioned above in detail in HPI. All other review of systems unremarkable. Denies any chest pain abdominal pain nausea vomiting. Patient has history of Mnire's disease. Denies any recent vertigo associated with the falls as mentioned above. 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 [place]-HAS HEARING AIDES BUT DOESN'T WEAR THEM. ENLARGED PROSTATE, BILAT CATARACTS, HYPOGLYCEMIA, HITAL HERNIA History of Any Multi-Drug Resistant Organisms: None Reported Additional Past Surgical History / Comment(s): HX BUNIONECTOMY, COLONOSCOPY Past Anesthesia/Blood Transfusion Reactions: Motion Sickness Additional Past Anesthesia/Blood Transfusion Reaction / Comment(s): HX MENIERE'S DISEASE Past Psychological History: No Psychological Hx Reported Smoking Status: Never smoker Past Alcohol Use History: Occasional Past Drug Use History: None Reported Medications and Allergies Home Medications Medication Instructions Recorded Confirmed Type Aspirin 325 mg PO DAILY 03/05/14 01/15/21 History Dipyridamole 50 mg PO QID 03/05/14 01/15/21 History Omeprazole [PriLOSEC] 20 mg PO BID 03/05/14 01/15/21 History amLODIPine [Norvasc] 10 mg PO DAILY 03/05/14 01/15/21 History hydroCHLOROthiazide [Hydrodiuril] 50 mg PO DAILY 03/05/14 01/15/21 History EPINEPHrine (Auto Inject) [Epipen] 0.3 mg IM ONCE PRN 01/09/15 01/15/21 History Acyclovir 400 mg PO BID 01/01/21 01/15/21 History Allopurinol [Zyloprim] 100 mg PO HS 01/01/21 01/15/21 History Benazepril HCl 40 mg PO DAILY 01/01/21 01/15/21 History Bimatoprost [Lumigan .01% Ophth 1 drop BOTH EYES HS 01/01/21 01/15/21 History Soln] Dicyclomine [Bentyl] 10 mg PO TID PRN 01/01/21 01/15/21 History Finasteride [Proscar] 5 mg PO DAILY 01/01/21 01/15/21 History Potassium Chloride ER [K-Dur 20] 40 meq PO DAILY 01/01/21 01/15/21 History Tadalafil [Cialis] 5 mg PO DAILY 01/01/21 01/15/21 History Potassium Chloride ER [K-Dur 20] 20 meq PO HS 01/15/21 01/15/21 History Vit C/E/Zn/Coppr/Lutein/Zeaxan 1 cap PO DAILY 01/15/21 01/15/21 History [Preservision Areds 2 Softgel] rOPINIRole HCL [Requip] 0.25 mg PO HS 01/15/21 01/15/21 History Allergies Allergy/AdvReac Type Severity Reaction Status Date / Time clopidogrel bisulfate Allergy Itching Verified 01/15/21 17:17 [From Plavix] shellfish derived [Shellfish] Allergy Anaphylaxis Verified 01/15/21 17:17 venom-honey bee Allergy Swelling Verified 01/15/21 17:17 [bee venom (honey bee)] Physical Examination - Vital Signs Vital Signs: Vital Signs Temp Pulse Resp BP Pulse Ox 01/16/21 07:05 96 18 150/90 95 01/15/21 23:06 102 H 18 188/78 97 01/15/21 16:17 81 01/15/21 15:09 98.2 F 118 H 18 150/86 97 Intake and Output 01/15/21 01/16/21 01/16/21 22:59 06:59 14:59 Output Total 800 Balance -800 Output: Urine 800 Other: Weight 77.111 kg Patient is an elderly male, very pleasant, in no acute distress. Patient is alert awake, states it is January and the year is 2008 but then changed to 2020. He knows it is spring. He knows that he is in [facility] in [facility]. He knows the name of the [facility] and the name of the current president. Speech and language functions are normal. He speaks with mild hypophonia. Attention, concentration and fund of knowledge is adequate. On cranial examination, pupils are round and reacting to light, visual david are full on confrontation, extraocular muscles are intact with no nystagmus. Face is symmetric, tongue protrudes to the midline. Palatal elevation and sensation normal, hearing is slightly decreased and shoulder shrug normal, facial sensation normal. Shoulder shrug normal. On muscle strength testing, there is no pronator drift and the strength is completely normal in arms and legs distally and proximally. Deep tendon reflexes are 1+ to 2 in the upper and lower limbs and plantars are downgoing. No clonus. Sensory to touch is equal with no neglect. Cerebellar function showed no ataxia for [id number], or ebdx-mm-tgqx testing. No dysdiadochokinesia. Tone is moderately increased. Patient appears obviously bradykinetic. Bulk of muscles is normal. Patient has decreased f requency of blinking. Intermittent resting tremor of the lower extremity was noted. No tremors of the upper limb. Gait deferred. On general examination, there is no carotid bruit or murmur, S1-S2 audible. Abdomen is soft nontender. Chest is clear. Peripheral pulses are present. No edema. Results - Laboratory Findings CBC and BMP: 01/16/21 07:29 01/16/21 07:29 Abnormal Lab Findings: Abnormal Labs 01/15/21 01/15/21 01/15/21 16:05 16:07 16:07 WBC 13.2 H Neutrophils # 10.7 H Potassium BUN 22 H Glucose 212 H POC Glucose (mg/dL) 232 H Calcium 10.4 H ALT 64 H Urine Protein Urine Glucose (UA) Urine Blood Urine RBC Hyaline Casts Urine Mucus 01/15/21 01/16/21 16:48 07:29 WBC Neutrophils # Potassium 3.1 L BUN Glucose 165 H POC Glucose (mg/dL) Calcium ALT 65 H Urine Protein 1+ H Urine Glucose (UA) 3+ H Urine Blood Moderate H Urine RBC 47 H Hyaline Casts 3 H Urine Mucus Rare H Assessment and Plan Assessment: * Probable Parkinson's disease, mild to moderate in degree. Patient has all clinical features of Parkinson's disease including tremors at rest (noticeable in the lower limbs), bradykinesia, rigidity and postural instability. Patient also has micrographia and difficulty with getting up from the chair. * Mild cognitive impairment, likely related to above. * Diabetes * Hypertension * Hard of hearing * History of Mnire's disease. Plan: * Trial of Sinemet 25/100 one tablet twice a day. Possible side effects were discussed. Suggest patient follow up with neurologist in 2-4 weeks for a follow-up. * Carotid Doppler showed moderate right ICA stenosis in 50-69% range. * Patient currently on aspirin 325 mg and Persantine 50 mg 4 times a day. (Patient ALLERGIC to clopidogrel) * Await 2-D echo. * Check B12, folate, RPR and TSH. Lipid panel. * Hemoglobin A1c 6.9. * PT OT.
[2021-01-17] MEDS: ALPRAZolam 0.25 MG TAB PO PRN (03:28)
[2021-01-17] MEDS: PANTOPRAZOLE 40 MG TABLET PO SCH ×2 (06:28→17:56)
[2021-01-17] MEDS: POTASSIUM CHLORIDE ER 20 MEQ TAB.ER PO SCH ×2 (08:58→20:13)
[2021-01-17] MEDS: CARBIDOPA-LEVODOPA 25-100 MG 1 EACH TAB PO SCH ×2 (08:58→20:13)
[2021-01-17] MEDS: lisinopriL 20 MG TAB PO SCH (08:58)
[2021-01-17] MEDS: HEPARIN SODIUM,PORCINE/PF 5,000 UNIT/0.5 ML SYRINGE SQ SCH ×2 (08:58→20:14)
[2021-01-17] MEDS: FINASTERIDE 5 MG TAB PO SCH (08:58)
[2021-01-17] MEDS: amLODIPine 10 MG TAB PO SCH (08:58)
[2021-01-17] MEDS: ASPIRIN 325 MG TAB PO SCH (08:58)
[2021-01-17] MEDS: VIT A,C & E-LUTEIN-MINERALS 1 EACH TAB PO SCH (08:59)
[2021-01-17] MEDS: DIPYRIDAMOLE 25 MG TAB PO SCH ×4 (08:59→20:13)
--- NOTE | 2021-01-17 11:31 | ECHOF ---
Referral Reason:Stroke MEASUREMENTS -------- HEIGHT: 167.6 cm WEIGHT: 77.1 kg BP: IVSd: 1.4 cm (0.6 - 1.1) LVIDd: 3.2 cm (3.9 - 5.3) LVPWd: 1.5 cm (0.6 - 1.1) IVSs: 2.0 cm LVIDs: 1.6 cm LVPWs: 1.9 cm LAESV Index (A-L): 13.30 ml/m Ao Diam: 3.8 cm (2.0 - 3.7) AV Cusp: 1.5 cm (1.5 - 2.6) LA Diam: 2.6 cm (2.7 - 3.8) MV EXCURSION: 15.965 mm (> 18.000) MV EF SLOPE: 118 mm/s (70 - 150) EPSS: 0.7 cm MV E Solitario: 0.74 m/s MV DecT: 197 ms MV A Solitario: 1.11 m/s MV E/A Ratio: 0.67 RAP: 5.00 mmHg RVSP: 12.14 mmHg FINDINGS -------- This was a technically good study. The left ventricular size is normal. There is moderate concentric left ventricular hypertrophy. O verall left ventricular systolic function is normal with, an EF between 55 - 60 %. The diastolic fi lling pattern is normal for the age of the patient 12.73. The right ventricle is normal in size. The left atrial size is normal. Normal LA size by volume 22+/-6 ml/m2. The right atrial size is normal. The aortic valve is trileaflet and appears structurally normal. The mitral valve is normal. There is trace mitral regurgitation. The tricuspid valve appears structurally normal. Trace tricuspid regurgitation present. Right karina tricular systolic pressure is normal at < 35 mmHg. There is no pulmonic regurgitation present. The aortic root size is normal. Normal inferior vena cava with normal inspiratory collapse consistent with estimated right atrial pre ssure of 5 mmHg. There is no pericardial effusion. CONCLUSIONS -------- 1. The left ventricular size is normal. 2. There is moderate concentric left ventricular hypertrophy. 3. Overall left ventricular systolic function is normal with, an EF between 55 - 60 %. 4. The diastolic filling pattern is normal for the age of the patient 12.73 5. There is trace mitral regurgitation. 6. Trace tricuspid regurgitation present. 7. There is no pericardial effusion. COMPUTER AIDE: Tigist Thomson RDCS
[2021-01-17 11:44] LABS: Calcium 9.8 mg/dL (8.4-10.2); Magnesium 1.9 mg/dL (1.6-2.3)
[2021-01-17 12:24] LABS: Basophils % (A) 0 %; Eosinophils # (A) 0.1 k/uL (0-0.7); Eosinophils % (A) 2 %; HCT 43.8 % (39.0-53.0); HGB 16.2 gm/dL (13.0-17.5); Lymphocytes # (A) 1.1 k/uL (1.0-4.8); Lymphocytes % (A) 14 %; MCH 34.5 pg (25.0-35.0); MCHC 36.9 g/dL (31.0-37.0); MCV 93.4 fL (80.0-100.0); Mean Platelet Volume 8.3; Monocytes # (A) 0.5 k/uL (0-1.0); Monocytes % (A) 7 %; Neutrophils # (A) 5.9 k/uL (1.3-7.7); Neutrophils % (A) 76 %; Platelet Count 164 k/uL (150-450); RBC 4.68 m/uL (4.30-5.90); RDW 12.2 % (11.5-15.5); WBC 7.7 k/uL (3.8-10.6)
[2021-01-17] MEDS: ACYCLOVIR 200 MG CAP PO SCH ×2 (13:19→20:51)
--- NOTE | 2021-01-17 14:41 | P.PN ---
Subjective Progress Note Date: 01/17/21 This is a 72-year-old male who was recently admitted with changes in mental status and possibly being evaluated and monitored for acute stroke. neurology following. Patient continues to be confused although more awake today and continues with Parkinson-like features on the right more than left. Patient underwent carotid Doppler showing hemodynamic significant stenosis of the proximal internal carotid artery on the right with approximately 50-69% diameter reduction and patient also underwent 2-D echo showing overall left ventricular systolic function is normal with an EF between 55 and 60% with a trace of mitral and tricuspid regurgitation present. Case management and social work also following as patient will need rehab upon discharge. Patient continues to be weak and needs assistance with ADLs along with gait. Review of systems: Constitutional: No reports of fatigue, fever, or chills Cardiovascular: No reports of chest pain or palpitations Respiratory: No reports of shortness of breath or cough GI: No reports of nausea, vomiting, or diarrhea : No reports of dysuria or retention Neurovascular: No reports of weakness or numbness All medications have been reviewed Active Medications Acetaminophen (Acetaminophen Tab 500 Mg Tab) 500 mg PO Q6HR PRN PRN Reason: Fever and/ or Mild Pain Hydrocodone Bitart/Acetaminophen (Hydrocodone/Apap 5-325mg 1 Each Tab) 1 each PO Q6HR PRN PRN Reason: Pain Last Admin: 01/15/21 23:11 Dose: 1 each Documented by: Acyclovir (Acyclovir 200 Mg Cap) 400 mg PO BID [facility] Last Admin: 01/17/21 13:19 Dose: 400 mg Documented by: Allopurinol (Allopurinol 100 Mg Tab) 100 mg PO HS [facility] Last Admin: 01/16/21 21:58 Dose: 100 mg Documented by: Alprazolam (Alprazolam 0.25 Mg Tab) 0.25 mg PO TID PRN PRN Reason: Anxiety Last Admin: 01/17/21 03:28 Dose: 0.25 mg Documented by: Amlodipine Besylate (Amlodipine 10 Mg Tab) 10 mg PO DAILY [facility] Last Admin: 01/17/21 08:58 Dose: 10 mg Documented by: Aspirin (Aspirin 325 Mg Tab) 325 mg PO DAILY [facility] Last Admin: 01/17/21 08:58 Dose: 325 mg Documented by: Carbidopa/Levodopa (Carbidopa-Levodopa 25-100 Mg 1 Each Tab) 1 each PO BID [facility] Last Admin: 01/17/21 08:58 Dose: 1 each Documented by: Dipyridamole (Dipyridamole 25 Mg Tab) 50 mg PO QID [facility] Last Admin: 01/17/21 13:19 Dose: 50 mg Documented by: Finasteride (Finasteride 5 Mg Tab) 5 mg PO DAILY [facility] Last Admin: 01/17/21 08:58 Dose: 5 mg Documented by: Heparin Sodium (Porcine) (Heparin Sodium,Porcine/Pf 5,000 Unit/0.5 Ml Syringe) 5,000 unit SQ Q12HR [facility] Last Admin: 01/17/21 08:58 Dose: 5,000 unit Documented by: Hydrochlorothiazide (Hydrochlorothiazide 50 Mg Tab) 50 mg PO DAILY [facility] Last Admin: 01/17/21 08:59 Dose: 50 mg Documented by: Latanoprost (Latanoprost 0.005% Ophth Drops 2.5 Ml Btl) 1 drops BOTH EYES [facility] Last Admin: 01/16/21 23:32 Dose: 1 drops Documented by: Lisinopril (Lisinopril 20 Mg Tab) 40 mg PO DAILY [facility] Last Admin: 01/17/21 08:58 Dose: 40 mg Documented by: Miscellaneous Information (Magnesium Replacement Protocol 1 Each Misc) 1 each MISCELLANE DAILY PRN; Protocol PRN Reason: Per Protocol Miscellaneous Information (Potassium Replacement Protocol 1 Each Misc) 1 each MISCELLANE DAILY PRN; Protocol PRN Reason: Per Protocol Multivitamins/Minerals (Vit A,C & S-Hpppup-Pxzpkspm 1 Each Tab) 1 each PO DAILY [facility] Last Admin: 01/17/21 08:59 Dose: 1 each Documented by: Naloxone HCl (Naloxone 0.4 Mg/Ml 1 Ml Vial) 0.2 mg IV Q2M PRN PRN Reason: Opioid Reversal Pantoprazole Sodium (Pantoprazole 40 Mg Tablet) 40 mg PO AC-BID [facility] Last Admin: 01/17/21 06:28 Dose: 40 mg Documented by: Potassium Chloride (Potassium Chloride Er 20 Meq Tab.Er) 40 meq PO DAILY [facility] Last Admin: 01/17/21 08:58 Dose: 40 meq Documented by: Potassium Chloride (Potassium Chloride Er 20 Meq Tab.Er) 20 meq PO HS [facility] Last Admin: 01/16/21 21:58 Dose: 20 meq Documented by: Ropinirole HCl (Ropinirole Hcl 0.25 Mg Tab) 0.25 mg PO HS [facility] Last Admin: 01/16/21 21:58 Dose: 0.25 mg Documented by: Objective - Vital Signs Vital signs: Vital Signs Temp 97.8 F 01/16/21 16:01 Pulse 76 01/17/21 04:00 Resp 18 01/17/21 04:00 BP 153/87 01/17/21 04:00 Pulse Ox 91 L 01/17/21 04:00 Intake & Output 01/16/21 01/17/21 01/17/21 18:59 06:59 18:59 Intake Total 236 Output Total 1999 Balance -1999 236 Weight 76.884 kg Intake: Oral 236 Output: Urine 1999 Other: Voiding Method Indwelling Catheter - Exam Gen: This is a 72-year-old male sitting up in bed awake, alert and oriented 2-3 well-developed, well-nourished. Temp is 97.3F, pulse is 92, respirations are 149/77, oxygen saturation is 94% on room air. HEENT: Head is atraumatic, normocephalic. Pupils equal, round. Sclerae is anicteric. NECK: Supple. No JVD. No lymphadenopathy. No thyromegaly. LUNGS: Diminished breath sounds bilaterally with no wheezing or rhonchi noted. No intercostal retractions. HEART: S1, S2 are muffled ABDOMEN: Soft. Bowel sounds are present. No masses. No tenderness. EXTREMITIES: No pedal edema. No calf tenderness. NEUROLOGICAL: Patient is awake, alert and oriented x2-3. Diffusely weak. - Labs CBC & Chem 7: 01/17/21 10:54 01/17/21 10:54 Labs: Abnormal Lab Results - Last 24 Hours (Table) 01/16/21 Range/Units 07:29 Hemoglobin A1c 6.9 H (4.0-6.0) % Microbiology - Last 24 Hours (Table) 01/15/21 23:29 Blood Culture - Preliminary Blood No Growth after 24 hours Assessment and Plan Assessment: Change in mental status, confusion, possible acute stroke or transient ischemic attack involving the left hemisphere Parkinson's, right more than left Possible change in mental status acute metabolic encephalopathy Increased white blood count Hypokalemia Increased random blood sugar and diabetes mellitus type 2, possibly Increased ALT Rule out dementia Hematuria history of CVA, TIA History of gastroesophageal reflux disease Hypertension History of hard of hearing History of enlarged prostate history of Mnire disease Full code Recommendations and discussion: Recommend to continue with current medications, management, and symptomatic treatment. Neurology is following for possible acute stroke or TIA workup currently in progress. PT/OT therapy to follow as patient continues to be weak requiring assistance. Case management and social work following as patient will need rehab in the outpatient setting once stabilized and discharged. Family is agreeable to this and are working on which facility they would prefer. Henry stevens was replaced per protocol and improved today at 4.0. Will continue to monitor vital signs and labs closely. Further recommendations to follow. Due to multiple complex medical issues prognosis is guarded.
[2021-01-17] MEDS: polyethylene glycoL 3350 17 GM POWD.PACK PO SCH (17:58)
--- NOTE | 2021-01-17 19:39 | P.PN ---
Subjective Progress Note Date: 01/17/21 Patient is laying comfortably in the bed. Offers no complaints. Denies any headache. Objective - Vital Signs Vital signs: Vital Signs Temp 97.3 F L 01/17/21 08:00 Pulse 97 01/17/21 16:00 Resp 18 01/17/21 04:00 BP 140/75 01/17/21 16:00 Pulse Ox 94 L 01/17/21 16:00 Intake & Output 01/17/21 01/17/21 01/18/21 06:59 18:59 06:59 Intake Total 716 Output Total 1999 1599 Balance -1999 Weight 76.884 kg Intake: Oral 71 Output: Urine 1999 1599 Other: Voiding Method Indwelling Catheter Indwelling Catheter - Exam Patient is alert and awake in no distress. Speech and language functions are normal. Patient has hypophonic voice. Patient's muscle strength is normal. Tone is increased mildly, improved as compared to yesterday. No tremors at rest. Patient appears slightly less bradykinetic. Gait was deferred. - Labs CBC & Chem 7: 01/17/21 10:54 01/17/21 10:54 Labs: Abnormal Lab Results - Last 24 Hours (Table) 01/17/21 Range/Units 10:54 Sodium 135 L (137-145) mmol/L Glucose 197 H (74-99) mg/dL Triglycerides 207 H (<150) mg/dL HDL Cholesterol 30 L (40-60) mg/dL Microbiology - Last 24 Hours (Table) 01/15/21 23:29 Blood Culture - Preliminary Blood No Growth after 24 hours Assessment and Plan Assessment: * Probable Parkinson's disease, mild to moderate in degree. Patient has all clinical features of Parkinson's disease including tremors at rest (noticeable in the lower limbs), bradykinesia, rigidity and postural instability. Patient also has micrographia and difficulty with getting up from the chair. * Mild cognitive impairment, likely related to above. * Diabetes * Hypertension * Hard of hearing * History of Mnire's disease. Plan: * Continue Sinemet 25/100 one tablet twice a day. Suggest patient follow up with neurologist in 2-4 weeks for a follow-up. * Carotid Doppler showed moderate right ICA stenosis in 50-69% range. * Patient currently on aspirin 325 mg and Persantine 50 mg 4 times a day. (Patient ALLERGIC to clopidogrel) * 2-D echo revealed normal left-ventricular size. Moderate concentric LVH, EF is 55-60%. Trace MR. * Await B12, folate, RPR and TSH 1.20. Lipid panel with cholesterol 153, LDL 82, HDL 30 and triglycerides 207. * Hemoglobin A1c 6.9. * PT OT. * Neurologically clear for discharge, if cleared by PT OT.
[2021-01-17] MEDS: allopurinoL 100 MG TAB PO SCH (20:13)
[2021-01-17] MEDS: LATANOPROST 0.005% OPHTH DROPS 2.5 ML BTL BOTH EYES SCH (20:14)
[2021-01-18 08:09] LABS: Basophils % (A) 0 %; Eosinophils # (A) 0.3 k/uL (0-0.7); Eosinophils % (A) 4 %; HGB 16.7 gm/dL (13.0-17.5); Lymphocytes # (A) 1.5 k/uL (1.0-4.8); Lymphocytes % (A) 18 %; MCH 32.5 pg (25.0-35.0); MCHC 34.7 g/dL (31.0-37.0); MCV 93.5 fL (80.0-100.0); Monocytes # (A) 0.6 k/uL (0-1.0); Monocytes % (A) 7 %; Neutrophils # (A) 5.9 k/uL (1.3-7.7); Neutrophils % (A) 70 %; Platelet Count 216 k/uL (150-450); RBC 5.13 m/uL (4.30-5.90); RDW 12.7 % (11.5-15.5); WBC 8.5 k/uL (3.8-10.6)
[2021-01-18] MEDS: PANTOPRAZOLE 40 MG TABLET PO SCH ×2 (08:26→16:48)
[2021-01-18] MEDS: FINASTERIDE 5 MG TAB PO SCH (08:26)
[2021-01-18] MEDS: ASPIRIN 325 MG TAB PO SCH (08:26)
[2021-01-18 08:27] LABS: Potassium 3.9 mmol/L (3.5-5.1)
[2021-01-18] MEDS: VIT A,C & E-LUTEIN-MINERALS 1 EACH TAB PO SCH (08:27)
[2021-01-18] MEDS: amLODIPine 10 MG TAB PO SCH (08:27)
[2021-01-18] MEDS: POTASSIUM CHLORIDE ER 20 MEQ TAB.ER PO SCH ×2 (08:27→20:38)
[2021-01-18] MEDS: polyethylene glycoL 3350 17 GM POWD.PACK PO SCH (08:27)
[2021-01-18] MEDS: HEPARIN SODIUM,PORCINE/PF 5,000 UNIT/0.5 ML SYRINGE SQ SCH ×2 (08:27→20:37)
[2021-01-18] MEDS: CARBIDOPA-LEVODOPA 25-100 MG 1 EACH TAB PO SCH ×2 (08:27→20:37)
[2021-01-18] MEDS: lisinopriL 20 MG TAB PO SCH (08:27)
[2021-01-18] MEDS: ACYCLOVIR 200 MG CAP PO SCH ×2 (09:38→20:37)
[2021-01-18] MEDS: DIPYRIDAMOLE 25 MG TAB PO SCH ×4 (09:38→20:38)
[2021-01-18 10:19] LABS: Folate, Serum 21.5 ng/mL
[2021-01-18] MEDS: MAGNESIUM SULFATE-D5W PMX 1 GM in DEXTROSE/WATER 1 100ML.BAG IVPB SCH ×2 (16:48→17:49)
--- NOTE | 2021-01-18 16:58 | PN ---
PROGRESS NOTE DATE OF SERVICE: 01/18/2021 This 80-year-old gentleman who was admitted with change in mental status with possible acute stroke involving the left hemisphere is being closely monitored at this time. No chest pain. No palpitations. No fever. The patient is confused. PT/OT is evaluating the patient as well. Carotid Doppler showed some hemodynamically significant stenosis of the proximal internal carotid artery on the right, approximately 50-69 percent. Neurology is following the patient closely. PT, OT evaluating the patient closely for possible ECF rehab. The patient also has significant Parkinson disease. Past medical history reviewed. REVIEW OF SYSTEMS: CARDIOVASCULAR system: No angina or palpitations. RESPIRATORY: As mentioned earlier. GI: As mentioned earlier. : No dysuria. NERVOUS SYSTEM: No numbness or weakness. CURRENT MEDICATIONS: Reviewed and include: Tylenol, [place], Zyloprim, Xanax, Norvasc, aspirin, Sinemet. Doses reviewed. PHYSICAL EXAMINATION: Patient alert and oriented x3. Dysarthric. Pulse 96, blood pressure 150/87, respirations 18. Temperature 98.2, pulse ox 97% on room air. HEENT: Conjunctivae normal. NECK: No JVD. CARDIOVASCULAR: S1, S2 muffled. RESPIRATORY SYSTEM: Breath sounds diminished at the bases. A few scattered rhonchi and crackles. ABDOMEN: Soft, nontender. LEGS: Diffusely weak and increased tremors, right more than the left present. SKIN: No ulcer, rash or bleeding. LABS: WBC 8.2, hemoglobin 16.6, sodium 136, triglycerides 207. ASSESSMENT: 1. Change in mental status possible acute transient ischemic attack involving the right hemisphere. 2. Parkinsonian, right more the left. 3. Possible right internal carotid stenosis approximately 50-60 percent. 4. Change in mental status, acute metabolic encephalopathy. 5. Increased WBC. 6. Hypokalemia. 7. Increased random blood sugar and diabetes type 2, possible. 8. Increased ALT. 9. Rule out dementia. 10.Hematuria. 11.History of cerebrovascular accident/ transient ischemic attack. 12.History of gastroesophageal reflux disease. 13.Hypertension. 14.History of hard of hearing. 15.History of enlarged prostate. 16.History of Meniere's disease. 17.FULL CODE. RECOMMENDATIONS AND DISCUSSION: Recommend to continue current medications, management and symptomatic treatment. Otherwise, at this time, I would recommend continue the antiplatelet agents, Lipitor. Closely follow with Neurology. Medications adjusted. Discussed with the family. PT/OT evaluation, possible ECF rehab. I would also recommend vascular surgery evaluation. Guarded prognosis. Further recommendations to follow. MMGENOL / MIRLANDEN: [id number] /
[2021-01-18] MEDS: allopurinoL 100 MG TAB PO SCH (20:37)
[2021-01-18] MEDS: LATANOPROST 0.005% OPHTH DROPS 2.5 ML BTL BOTH EYES SCH (20:37)
[2021-01-18] MEDS: ALPRAZolam 0.25 MG TAB PO PRN (23:24)
--- NOTE | 2021-01-19 07:40 | P.GSCN ---
History of Present Illness History of present illness: 80-year-old gentleman patient came with a history of fall and confusion and had a complete stroke workup computed tomography scan of the brain shows no acute hemorrhage noted ischemia. Patient had a carotid ultrasound which shows right carotid 50-69% stenosis. Patient has known history of TIA, patient has history of hypertension, patient has been diagnosed with Parkinson's and On examination neck is supple no bruit appreciated Chest is clear first and second sound normal Abdomen soft nontender Brachial radial femoral pulses are present Motor function normal upper with good strength upper and lower extremity Impression is is symptomatic right carotid stenosis 50-69% stenosis continue with medical management we'll follow as an outpatient no role for any surgical intervention Past Medical History Past Medical History: CVA/TIA, Eye Disorder, GERD/Reflux, Hearing Disorder / Deafness, Hypertension, Prostate Disorder Additional Past Medical History / Comment(s): HX CVA 1987, MENIERE'S DISEASE, 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 [place]-HAS HEARING AIDES BUT DOESN'T WEAR THEM. ENLARGED PROSTATE, BILAT CATARACTS, HYPOGLYCEMIA, HITAL HERNIA History of Any Multi-Drug Resistant Organisms: None Reported Additional Past Surgical History / Comment(s): HX BUNIONECTOMY, COLONOSCOPY Past Anesthesia/Blood Transfusion Reactions: Motion Sickness Additional Past Anesthesia/Blood Transfusion Reaction / Comm: HX MENIERE'S DISEASE Past Psychological History: No Psychological Hx Reported Smoking Status: Never smoker Past Alcohol Use History: Occasional Past Drug Use History: None Reported Medications and Allergies Home Medications Medication Instructions Recorded Confirmed Type Aspirin 325 mg PO DAILY 03/05/14 01/15/21 History Dipyridamole 50 mg PO QID 03/05/14 01/15/21 History Omeprazole [PriLOSEC] 20 mg PO BID 03/05/14 01/15/21 History amLODIPine [Norvasc] 10 mg PO DAILY 03/05/14 01/15/21 History hydroCHLOROthiazide [Hydrodiuril] 50 mg PO DAILY 03/05/14 01/15/21 History EPINEPHrine (Auto Inject) [Epipen] 0.3 mg IM ONCE PRN 01/09/15 01/15/21 History Acyclovir 400 mg PO BID 01/01/21 01/15/21 History Allopurinol [Zyloprim] 100 mg PO HS 01/01/21 01/15/21 History Benazepril HCl 40 mg PO DAILY 01/01/21 01/15/21 History Bimatoprost [Lumigan .01% Ophth 1 drop BOTH EYES HS 01/01/21 01/15/21 History Soln] Dicyclomine [Bentyl] 10 mg PO TID PRN 01/01/21 01/15/21 History Finasteride [Proscar] 5 mg PO DAILY 01/01/21 01/15/21 History Potassium Chloride ER [K-Dur 20] 40 meq PO DAILY 01/01/21 01/15/21 History Tadalafil [Cialis] 5 mg PO DAILY 01/01/21 01/15/21 History Potassium Chloride ER [K-Dur 20] 20 meq PO HS 01/15/21 01/15/21 History Vit C/E/Zn/Coppr/Lutein/Zeaxan 1 cap PO DAILY 01/15/21 01/15/21 History [Preservision Areds 2 Softgel] rOPINIRole HCL [Requip] 0.25 mg PO HS 01/15/21 01/15/21 History Allergies Allergy/AdvReac Type Severity Reaction Status Date / Time clopidogrel bisulfate Allergy Itching Verified 01/15/21 17:17 [From Plavix] shellfish derived [Shellfish] Allergy Anaphylaxis Verified 01/15/21 17:17 venom-honey bee Allergy Swelling Verified 01/15/21 17:17 [bee venom (honey bee)] Surgical - Exam Vital Signs Temp Pulse Resp BP Pulse Ox 98.2 F 118 H 18 150/86 97 01/15/21 15:09 01/15/21 15:09 01/15/21 15:09 01/15/21 15:09 01/15/21 15:09 Results - Labs 01/18/21 07:36 01/18/21 07:36 Abnormal Lab Results - Last 24 Hours (Table) 01/18/21 Range/Units 07:36 Sodium 136 L (137-145) mmol/L Glucose 188 H (74-99) mg/dL Microbiology - Last 24 Hours (Table) 01/15/21 23:29 Blood Culture - Preliminary Blood No Growth after 72 hours Diabetes panel 01/18/21 Range/Units 07:36 Sodium 136 L (137-145) mmol/L Potassium 3.9 (3.5-5.1) mmol/L Chloride 101 (98-107) mmol/L Carbon Dioxide 26 (22-30) mmol/L BUN 20 (9-20) mg/dL Creatinine 1.01 (0.66-1.25) mg/dL Glucose 188 H (74-99) mg/dL Calcium 10.0 (8.4-10.2) mg/dL Calcium panel 01/18/21 Range/Units 07:36 Calcium 10.0 (8.4-10.2) mg/dL Pituitary panel 01/18/21 Range/Units 07:36 Sodium 136 L (137-145) mmol/L Potassium 3.9 (3.5-5.1) mmol/L Chloride 101 (98-107) mmol/L Carbon Dioxide 26 (22-30) mmol/L BUN 20 (9-20) mg/dL Creatinine 1.01 (0.66-1.25) mg/dL Glucose 188 H (74-99) mg/dL Calcium 10.0 (8.4-10.2) mg/dL Adrenal panel 01/18/21 Range/Units 07:36 Sodium 136 L (137-145) mmol/L Potassium 3.9 (3.5-5.1) mmol/L Chloride 101 (98-107) mmol/L Carbon Dioxide 26 (22-30) mmol/L BUN 20 (9-20) mg/dL Creatinine 1.01 (0.66-1.25) mg/dL Glucose 188 H (74-99) mg/dL Calcium 10.0 (8.4-10.2) mg/dL
[2021-01-19] MEDS: POTASSIUM CHLORIDE ER 20 MEQ TAB.ER PO SCH ×2 (07:52→20:10)
[2021-01-19] MEDS: lisinopriL 20 MG TAB PO SCH (07:52)
[2021-01-19] MEDS: FINASTERIDE 5 MG TAB PO SCH (07:52)
[2021-01-19] MEDS: PANTOPRAZOLE 40 MG TABLET PO SCH ×2 (07:52→17:22)
[2021-01-19] MEDS: amLODIPine 10 MG TAB PO SCH (07:52)
[2021-01-19] MEDS: CARBIDOPA-LEVODOPA 25-100 MG 1 EACH TAB PO SCH ×2 (07:52→20:10)
[2021-01-19] MEDS: ASPIRIN 325 MG TAB PO SCH (07:52)
[2021-01-19] MEDS: polyethylene glycoL 3350 17 GM POWD.PACK PO SCH (07:53)
[2021-01-19] MEDS: DIPYRIDAMOLE 25 MG TAB PO SCH ×4 (07:53→20:11)
[2021-01-19] MEDS: HEPARIN SODIUM,PORCINE/PF 5,000 UNIT/0.5 ML SYRINGE SQ SCH ×2 (07:53→20:10)
[2021-01-19] MEDS: ACYCLOVIR 200 MG CAP PO SCH ×2 (07:53→20:10)
[2021-01-19] MEDS: VIT A,C & E-LUTEIN-MINERALS 1 EACH TAB PO SCH (07:54)
[2021-01-19] MEDS: TOBRA-DEXAMET 0.3-0.1% OPHTH DROPS 2.5 ML BTL BOTH EYES SCH ×3 (15:57→23:13)
--- NOTE | 2021-01-19 17:21 | PN ---
PROGRESS NOTE DATE OF SERVICE: 01/19/2021 This 74-year-old gentleman admitted with possibly acute TIA, also had significant conjunctivitis today. No chest pain. No palpitations. No fever. PHYSICAL EXAMINATION: Alert and oriented x3. Pulse is 100. Blood pressure 140/73, respirations 17, temperature 97.7, pulse ox 98% on room air. HEENT: Conjunctivae significant bilateral conjunctivitis. NECK: No JVD. CARDIOVASCULAR: S1, S2 muffled. RESPIRATIONS: Breath sounds diminished in the bases. A few scattered rhonchi. ABDOMEN: Soft. NERVOUS SYSTEM: No focal deficits. LABS: Troponin antibodies not reactive. Covid 19 was negative previously. ASSESSMENT: 1. Change in mental status possible acute transient ischemic attack involving the right hemisphere. 2. Parkinsonian, right more than the left. 3. Possible acute bilateral conjunctivitis. 4. Possible right internal carotid stenosis approximately 50 to 60%. 5. Change in mental status, acute metabolic encephalopathy. 6. Increased WBC. 7. Hypokalemia. 8. Increased random blood glucose, diabetes mellitus type 2 possible. 9. Increased ALT. 10.Rule out dementia. 11.Hematuria history. 12.History of cerebrovascular accident, transient ischemic attack. 13.History of gastroesophageal reflux disease. 14.Hypertension. 15.History of hard of hearing. 16.History of enlarged prostate. 17.History of Meniere's disease. 18.FULL CODE. RECOMMENDATIONS AND DISCUSSION: Recommend to continue current medications, continue monitoring, continue with antiplatelet agents. Local treatment for conjunctivitis. Repeat Covid 19 because of the new symptoms of conjunctivitis. Otherwise, Dr. Radford has recommended medical management outpatient. Otherwise continue to monitor. PT/OT evaluation. Guarded prognosis. Further recommendations to follow. Discussed with the family at length. MMODL / IJN: [id number] /
[2021-01-19] MEDS: LATANOPROST 0.005% OPHTH DROPS 2.5 ML BTL BOTH EYES SCH (20:10)
[2021-01-19] MEDS: allopurinoL 100 MG TAB PO SCH (20:10)
[2021-01-19] MEDS: HYDROcodone/APAP 5-325MG 1 EACH TAB PO PRN (20:11)
[2021-01-19] MEDS: ALPRAZolam 0.25 MG TAB PO PRN (22:37)
--- NOTE | 2021-01-19 23:58 | P.PN ---
Subjective Progress Note Date: 01/19/21 Patient was seen for a follow-up via Teleneurology. Patient states he is feeling slightly better. Denies any side effect of the medication. Patient was in the bathroom, came over, walked with a shuffling gait but appeared very steady, did not use any walker. Patient then sat down in the recliner. Offers no complaints. Denies any headache. Objective - Vital Signs Vital signs: Vital Signs Temp 98.4 F 01/19/21 07:36 Pulse 80 01/19/21 07:36 Resp 16 01/19/21 07:36 BP 163/91 01/19/21 07:36 Pulse Ox 95 01/19/21 07:36 Intake & Output 01/18/21 01/19/21 01/19/21 18:59 06:59 18:59 Other: Voiding Method Toilet Toilet Urinal Urinal # Voids 9 5 # Bowel Movements 1 - Exam Patient is alert and awake in no distress. Speech and language functions are normal. Patient has hypophonic voice. Patient's muscle strength is normal. Tone is increased v mildly, improved as compared to previous examination. No tremors at rest. Patient appears slightly less bradykinetic. Patient walked with a shuffling gait, appeared very steady. He does have a walker, but was not using it. - Labs CBC & Chem 7: 01/18/21 07:36 01/18/21 07:36 Labs: Microbiology - Last 24 Hours (Table) 01/15/21 23:29 Blood Culture - Preliminary Blood No Growth after 72 hours Assessment and Plan Assessment: * Probable Parkinson's disease, mild to moderate in degree. Patient has all clinical features of Parkinson's disease including tremors at rest (noticeable in the lower limbs), bradykinesia, rigidity and postural instability. Patient also has micrographia and difficulty with getting up from the chair. * Mild cognitive impairment, likely related to above. * Diabetes * Hypertension * Hard of hearing * History of Mnire's disease. Plan: * Continue Sinemet 25/100 one tablet twice a day (in the morning on waking up and at 5 PM). Suggest patient follow up with neurologist in 2-4 weeks for a follow-up. * Carotid Doppler showed moderate right ICA stenosis in 50-69% range. Vascular surgery input appreciated. No surgical intervention needed. * Patient currently on aspirin 325 mg and Persantine 50 mg 4 times a day. (Patient ALLERGIC to clopidogrel) * 2-D echo revealed normal left-ventricular size. Moderate concentric LVH, EF is 55-60%. Trace MR. * B12 484, folate 21.5, RPR nonreactive and TSH 1.20. Lipid panel with cho lesterol 153, LDL 82, HDL 30 and triglycerides 207. B12 is slightly borderline, will give 1 dose of B12 injection. * Hemoglobin A1c 6.9. * PT OT. * Neurologically clear for discharge, if cleared by PT OT. * Neurology will sign off. Please reconsult if any other concerns.
[2021-01-20] MEDS ORDERED: CYANOCOBALAMIN 1,000 MCG/ML 1 ML VIAL IM ONE (00:24)
[2021-01-20 03:00] VITALS: RESP 16
[2021-01-20] MEDS: TOBRA-DEXAMET 0.3-0.1% OPHTH DROPS 2.5 ML BTL BOTH EYES SCH ×4 (04:07→12:08)
[2021-01-20 07:15] VITALS: BP 155/70; PULSE 95; TEMP 98.3
[2021-01-20] MEDS: POTASSIUM CHLORIDE ER 20 MEQ TAB.ER PO SCH (08:46)
[2021-01-20] MEDS: PANTOPRAZOLE 40 MG TABLET PO SCH (08:46)
[2021-01-20] MEDS: CARBIDOPA-LEVODOPA 25-100 MG 1 EACH TAB PO SCH (08:46)
[2021-01-20] MEDS: polyethylene glycoL 3350 17 GM POWD.PACK PO SCH (08:46)
[2021-01-20] MEDS: ASPIRIN 325 MG TAB PO SCH (08:46)
[2021-01-20] MEDS: FINASTERIDE 5 MG TAB PO SCH (08:46)
[2021-01-20] MEDS: amLODIPine 10 MG TAB PO SCH (08:46)
[2021-01-20] MEDS: lisinopriL 20 MG TAB PO SCH (08:47)
[2021-01-20] MEDS: VIT A,C & E-LUTEIN-MINERALS 1 EACH TAB PO SCH (08:47)
[2021-01-20] MEDS: HEPARIN SODIUM,PORCINE/PF 5,000 UNIT/0.5 ML SYRINGE SQ SCH (08:47)
[2021-01-20] MEDS: DIPYRIDAMOLE 25 MG TAB PO SCH ×2 (08:48→12:07)
[2021-01-20] MEDS: ACYCLOVIR 200 MG CAP PO SCH (08:48)
--- NOTE | 2021-01-20 12:54 | P.DS ---
Providers Date of admission: 01/15/21 19:32 Expected date of discharge: 01/20/21 Attending physician: Galindo Kothari Consults: 01/15/21 18:13 Consult Physician Routine Consulting Provider: Roxane Hammer Consult Reason/Comments: cvi/parkinsons Do you want consulting provider notified?: Yes 01/18/21 14:59 Consult Physician Routine Consulting Provider: Manan Radford Consult Reason/Comments: ic stenosis Do you want consulting provider notified?: Yes Primary care physician: [facility] Course: Final diagnosis Change in mental status, confusion, possible transient ischemic attack involving the right hemisphere Parkinson's, right more than left Possible acute bilateral conjunctivitis Possible right internal carotid stenosis approximately 50-60% change in mental status acute metabolic encephalopathy Increased white blood count Hypokalemia Increased random blood sugar and diabetes mellitus type 2, possibly Increased ALT Rule out dementia Hematuria history of CVA, TIA History of gastroesophageal reflux disease Hypertension History of hard of hearing History of enlarged prostate history of Mnire disease Full code Discharge disposition Patient is being discharged in a stable condition with guarded prognosis to [facility] for continued PT/OT therapy. Patient will follow-up with Dr. Florian upon discharge. Patient will continue with a short course of antibiotic drops to both eyes 4 times daily for the next 1 week and then may discontinue. Patient instructed to follow up with neurology in the outpatient setting along with vascular surgery Dr. Radford outpatient. Total time taken is greater than 35 minutes. Hospital course This is a 80-year-old male who was recently admitted with changes in mental status and possibly being evaluated and monitored for possible TIA. Neurology following. Patient continues to have confusion although more alert and continues with Parkinson-like features and follows with neurology in the outpatient setting. Patient will continue with current medication regimen along with antibiotic eyedrops to both eyes 4 times daily for the next 1 week and then may discontinue. Patient will need to follow-up with vascular surgery in the outpatient setting as discussed with Dr. Radford. Currently no reports of chest pain, shortness of breath, or palpitations. Patient is afebrile. No reports of nausea or vomiting and patient is tolerating diet. Patient is being discharged to [facility] today. Guarded prognosis. On exam vital signs are stable. Cardio S1, S2 are muffled. Respiratory shows diminished breath sounds at the bases with no wheezing or rhonchi noted. Abdomen is soft and nontender. Nervous system shows mild diffuse weakness. Please refer to medication reconciliation sheet for a list of medications. Patient Condition at Discharge: Fair Plan - Discharge Summary New Discharge Prescriptions: New polyethylene glycoL 3350 [Miralax] 17 gm PO DAILY powd.pack Carbidopa-Levodopa 25-100 mg [Sinemet 25-100 mg] 1 each PO BID tab Tobra-Dexamet 0.3-0.1% Eye [place]aney [Tobradex Ophth Susp] 1 drops BOTH EYES Q4HR 7 Days #5 ml Acetaminophen Tab [Tylenol] 500 mg PO Q6HR PRN tab PRN Reason: Fever and/ or Mild Pain ALPRAZolam [Xanax] 0.25 mg PO TID PRN #6 tab PRN Reason: Anxiety HYDROcodone/APAP 5-325MG [Stamps 5-325] 1 each PO Q6HR PRN #6 tab PRN Reason: Pain Continue amLODIPine [Norvasc] 10 mg PO DAILY Omeprazole [PriLOSEC] 20 mg PO BID hydroCHLOROthiazide [Hydrodiuril] 50 mg PO DAILY Aspirin 325 mg PO DAILY Dipyridamole 50 mg PO QID EPINEPHrine (Auto Inject) [Epipen] 0.3 mg IM ONCE PRN PRN Reason: Anaphylaxis Acyclovir 400 mg PO BID Allopurinol [Zyloprim] 100 mg PO HS Benazepril HCl 40 mg PO DAILY Bimatoprost [Lumigan .01% Ophth Soln] 1 drop BOTH EYES HS Finasteride [Proscar] 5 mg PO DAILY Potassium Chloride ER [K-Dur 20] 20 meq PO HS rOPINIRole HCL [Requip] 0.25 mg PO HS Vit C/E/Zn/Coppr/Lutein/Zeaxan [Preservision Areds 2 Softgel] 1 cap PO DAILY Dicyclomine [Bentyl] 10 mg PO TID PRN PRN Reason: GI CRAMPS Potassium Chloride ER [K-Dur 20] 40 meq PO DAILY Discontinued Tadalafil [Cialis] 5 mg PO DAILY Discharge Medication List Aspirin 325 mg PO DAILY 03/05/14 [History] Dipyridamole 50 mg PO QID 03/05/14 [History] Omeprazole [PriLOSEC] 20 mg PO BID 03/05/14 [History] amLODIPine [Norvasc] 10 mg PO DAILY 03/05/14 [History] hydroCHLOROthiazide [Hydrodiuril] 50 mg PO DAILY 03/05/14 [History] EPINEPHrine (Auto Inject) [Epipen] 0.3 mg IM ONCE PRN 01/09/15 [History] Acyclovir 400 mg PO BID 01/01/21 [History] Allopurinol [Zyloprim] 100 mg PO HS 01/01/21 [History] Benazepril HCl 40 mg PO DAILY 01/01/21 [History] Bimatoprost [Lumigan .01% Ophth Soln] 1 drop BOTH EYES HS 01/01/21 [History] Dicyclomine [Bentyl] 10 mg PO TID PRN 01/01/21 [History] Finasteride [Proscar] 5 mg PO DAILY 01/01/21 [History] Potassium Chloride ER [K-Dur 20] 40 meq PO DAILY 01/01/21 [History] Potassium Chloride ER [K-Dur 20] 20 meq PO HS 01/15/21 [History] Vit C/E/Zn/Coppr/Lutein/Zeaxan [Preservision Areds 2 Softgel] 1 cap PO DAILY 01/15/21 [History] rOPINIRole HCL [Requip] 0.25 mg PO HS 01/15/21 [History] ALPRAZolam [Xanax] 0.25 mg PO TID PRN #6 tab 01/20/21 [Rx] Acetaminophen Tab [Tylenol] 500 mg PO Q6HR PRN tab 01/20/21 [Rx] Carbidopa-Levodopa 25-100 mg [Sinemet 25-100 mg] 1 each PO BID tab 01/20/21 [Rx] HYDROcodone/APAP 5-325MG [Stamps 5-325] 1 each PO Q6HR PRN #6 tab 01/20/21 [Rx] Tobra-Dexamet 0.3-0.1% Eye [place] [Tobradex Ophth Susp] 1 drops BOTH EYES Q4HR 7 Days #5 ml 01/20/21 [Rx] polyethylene glycoL 3350 [Miralax] 17 gm PO DAILY powd.pack 01/20/21 [Rx] Follow up Appointment(s)/Referral(s): Brenden Florian MD [STAFF PHYSICIAN] - 1-2 Days Faustino,Fidel, DO [Primary Care Provider] - 1-2 days Activity/Diet/Wound Care/Special Instructions: Patient is going to [facility] Activity as tolerated Continue heart healthy diet Follow-up with primary care provider upon discharge Follow-up with vascular surgery in the outpatient setting Follow-up with neurology in the outpatient setting Discharge Disposition: TRANSFER TO SNF/ECF
== END 2021-01-20 13:37 | DRG 69 ==
LOC: EC 14:56 → 3SCARD 19:32 → 4SSUR 01-17 23:42
PROVIDERS: ADMIT Hospitalist; ATTEND Hospitalist
DX: G45.9 Transient cerebral ischemic attack, unspecified (principal); G93.41 Metabolic encephalopathy; S22.32XA Fracture of one rib, left side, initial encounter for closed fracture; G20 Parkinson's disease; E11.9 Type 2 diabetes mellitus without complications; E87.6 Hypokalemia; H81.09 Meniere's disease, unspecified ear; I10 Essential (primary) hypertension; N40.0 Benign prostatic hyperplasia without lower urinary tract symptoms; Z20.828 Contact with and (suspected) exposure to other viral communicable diseases; G31.84 Mild cognitive impairment of uncertain or unknown etiology; K76.0 Fatty (change of) liver, not elsewhere classified; Z79.82 Long term (current) use of aspirin; Z86.73 Personal history of transient ischemic attack (TIA), and cerebral infarction without residual deficits; H91.90 Unspecified hearing loss, unspecified ear; K21.9 Gastro-esophageal reflux disease without esophagitis; R31.9 Hematuria, unspecified; I65.21 Occlusion and stenosis of right carotid artery; Z20.822 Contact with and (suspected) exposure to COVID-19; W18.2XXA Fall in (into) shower or empty bathtub, initial encounter; M19.90 Unspecified osteoarthritis, unspecified site; Z79.899 Other long term (current) drug therapy
CPT/HCPCS: 36415; 70450; 71045; 71260; 72125; 74177; 80048; 80053; 80061; 81001; 82607; 82746; 83036; 83735; 84443; 85025; 85610; 85730; 86780; 86850; 86900; 86901; 87040; 87635; 93005; 93306; 93880; 96360; 99285

== ENCOUNTER → 2021-04-30 | Outpatient (CLI) | payer MEDICARE, OTHER ==
--- NOTE | 2021-05-01 10:04 | NM ---
EXAMINATION TYPE: NM DatScan Brain SPECT DATE OF EXAM: 04/30/2021 COMPARISON: NONE HISTORY: Tremor TECHNIQUE: 10 drops of Lugol's solution was administered 1 hour prior to injection as a thyroid bloc helena agent. After the administration of 4.66 mCi I-123 Ioflupane DaTscan. Images obtained 3 hours p ost injection. SPECT images of the brain were acquired with axial and coronal reconstructions. FINDINGS: The axial SPECT images demonstrate increased background activity and reduced activity withi n the bilateral striata. IMPRESSION: Abnormal appearance highly suggestive of idiopathic Parkinson's disease or Parkinsonian s yndrome.
== END | disposition home or self-care (01) ==
LOC: RADNMMAIN 10:53
PROVIDERS: ATTEND Psychiatry & Neurology Neurology
DX: G25.0 Essential tremor (principal); G21.9 Secondary parkinsonism, unspecified
CPT/HCPCS: 78803; A9584

== ENCOUNTER 2022-08-30 06:48 | Emergency (ER) | payer MEDICARE, OTHER ==
--- NOTE | 2022-08-30 07:26 | ED ---
General Adult HPI - General Chief complaint: Fall Stated complaint: Fall Time Seen by Provider: 08/30/22 06:52 Source: patient, EMS Mode of arrival: EMS Limitations: no limitations, physical limitation - History of Present Illness Initial comments: Dictation was produced using [employer] dictation software. please excuse any grammatical, word or spelling errors. Chief Complaint: 81-year-old male presents emergency Department with episode of right leg weakness History of Present Illness: Patient is 81-year-old male with multiple comor bidities she was brought here from local assisted living facility. Patient woke up early this morning in the middle the night to use the restroom. Patient got to the bathroom when all of a sudden filling his right leg wasn't working. He lowered himself to the ground slowly. He said that prior to the onset of symptoms he had been sitting. He has had intermittent bouts of leg numbness and weakness after sitting for prolonged periods of time secondary to sciatica. He is on the ground for approximately 20 minutes. He states that he let himself down as post fall. Event was unwitnessed. He has a alert necklace. He pressed the button and staff arrive shortly after. EMS was called for lift assist. Patient states that he felt like his right leg wasn't working which prevented him from standing up. Patient denied any numbness of the leg. Last for approximately 20 minutes and currently at the bedside he is having no complaints at this time. Patient has multiple comorbidities. His Mnire's disease being managed by a neurologist. Patient also has history of transient ischemic att acks and CVAs that have been worked up in the past. The ROS documented in this emergency department record has been reviewed and confirmed by me. Those systems with pertinent positive or negative responses have been documented in the HPI. All other systems are other negative and/or noncontributory. PHYSICAL EXAM: General Impression: Alert and oriented x3, not in acute distress HEENT: Normocephalic atraumatic, extra-ocular movements intact, pupils equal and reactive to light bilaterally, mucous membranes moist. Cardiovascular: Heart regular rate and rhythm Chest: Able to complete full sentences, no retractions, no tachypnea Abdomen: abdomen soft, non-tender, non-distended, no organomegaly Musculoskeletal: Pulses present and equal in all extremities, no peripheral edema Motor: no focal deficits noted Neurological: CN II-XII grossly intact, no focal motor or sensory deficits noted, nih 0 Skin: Intact with no visualized rashes Psych: Normal affect and mood ED course: 81-year-old male presents emergency department after fall and 20 minute episode of right leg weakness. Clinical presentation likely secondary to neuropathy from prolonged sitting. There is low suspicion of TIA.. Signs upon arrival are within acceptable limits. At the bedside patient's well-appearing with no neurologic deficits appreciated on physical examination. Nursing notes and chart review was performed Laboratory evaluation obtained. CBC, metabolic panel is unremarkable. Computed tomography scan of the head and C-spine is unremarkable. Patient is observed in emergency department for 2 hours a 12 minutes. Reevaluated at bedside at 9:00 AM found to be in stable medical condition. Patient is agreeable for discharge. States that this is a frequent occurrence for him. Patient strongly advised follow primary care doctor and to return to the emergency department if he has any worsening symptoms. - Related Data Home Medications Medication Instructions Recorded Confirmed Aspirin 325 mg PO DAILY 03/05/14 01/15/21 Dipyridamole 50 mg PO QID 03/05/14 01/15/21 Omeprazole [PriLOSEC] 20 mg PO BID 03/05/14 01/15/21 amLODIPine [Norvasc] 10 mg PO DAILY 03/05/14 01/15/21 hydroCHLOROthiazide [Hydrodiuril] 50 mg PO DAILY 03/05/14 01/15/21 EPINEPHrine (Auto Inject) [Epipen] 0.3 mg IM ONCE PRN 01/09/15 01/15/21 Acyclovir 400 mg PO BID 01/01/21 01/15/21 Benazepril HCl 40 mg PO DAILY 01/01/21 01/15/21 Bimatoprost [Lumigan 0.01% Ophth 1 drop BOTH EYES HS 01/01/21 01/15/21 Soln] Dicyclomine [Bentyl] 10 mg PO TID PRN 01/01/21 01/15/21 Finasteride [Proscar] 5 mg PO DAILY 01/01/21 01/15/21 Potassium Chloride ER [K-Dur 20] 40 meq PO DAILY 01/01/21 01/15/21 allopurinoL [Zyloprim] 100 mg PO HS 01/01/21 01/15/21 Potassium Chloride ER [K-Dur 20] 20 meq PO HS 01/15/21 01/15/21 Vit C/E/Zn/Coppr/Lutein/Zeaxan 1 cap PO DAILY 01/15/21 01/15/21 [Preservision Areds 2 Softgel] rOPINIRole HCL [Requip] 0.25 mg PO HS 01/15/21 01/15/21 Previous Rx's Medication Instructions Recorded ALPRAZolam [Xanax] 0.25 mg PO TID PRN #6 tab 01/20/21 Acetaminophen Tab [Tylenol] 500 mg PO Q6HR PRN tab 01/20/21 Carbidopa-Levodopa 25-100 mg 1 each PO BID tab 01/20/21 [Sinemet 25-100 mg] HYDROcodone/APAP 5-325MG [[place] 1 each PO Q6HR PRN #6 tab 01/20/21 5-325] Tobra-Dexamet 0.3-0.1% Eye Brittaney 1 drops BOTH EYES Q4HR 7 Days #5 ml 01/20/21 [Tobradex Ophth Susp] polyethylene glycoL 3350 [Miralax] 17 gm PO DAILY powd.pack 01/20/21 Allergies Allergy/AdvReac Type Severity Reaction Status Date / Time clopidogrel bisulfate Allergy Itching Verified 08/30/22 06:58 [From Plavix] shellfish derived [Shellfish] Allergy Anaphylaxis Verified 08/30/22 06:58 venom-honey bee Allergy Swelling Verified 08/30/22 06:58 [bee venom (honey bee)] Review of Systems ROS Statement: Those systems with pertinent positive or pertinent negative responses have been documented in the HPI. ROS Other: All systems not noted in ROS Statement are negative. 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 [place]HAS HEARING AIDES BUT DOESN'T WEAR THEM. ENLARGED PROSTATE, BILAT CATARACTS, HYPOGLYCEMIA, HITAL HERNIA History of Any Multi-Drug Resistant Organisms: None Reported Additional Past Surgical History / Comment(s): HX BUNIONECTOMY, COLONOSCOPY Past Anesthesia/Blood Transfusion Reactions: Motion Sickness Additional Past Anesthesia/Blood Transfusion Reaction / Comment(s): HX MENIERE'S DISEASE Past Psychological History: No Psychological Hx Reported Smoking Status: Never smoker Past Alcohol Use History: Occasional Past Drug Use History: None Reported General Exam Limitations: no limitations, physical limitation Course Vital Signs 08/30/22 06:59 Temperature 98 F Pulse Rate 66 Respiratory 16 Rate Blood Pressure 160/77 O2 Sat by Pulse 99 Oximetry Medical Decision Making - Lab Data Result diagrams: 08/30/22 08:00 08/30/22 08:00 Lab Results 08/30/22 08/30/22 08/30/22 Range/Units 08:00 08:00 08:00 WBC 7.6 (3.8-10.6) k/uL RBC 4.39 (4.30-5.90) m/uL Hgb 15.1 (13.0-17.5) gm/dL Hct 40.6 (39.0-53.0) % MCV 92.4 (80.0-100.0) fL MCH 34.5 (25.0-35.0) pg MCHC 37.3 H (31.0-37.0) g/dL RDW 13.1 (11.5-15.5) % Plt Count 155 (150-450) k/uL MPV 8.8 Neutrophils % 77 % Lymphocytes % 14 % Monocytes % 6 % Eosinophils % 1 % Basophils % 1 % Neutrophils # 5.9 (1.3-7.7) k/uL Lymphocytes # 1.1 (1.0-4.8) k/uL Monocytes # 0.4 (0-1.0) k/uL Eosinophils # 0.1 (0-0.7) k/uL Basophils # 0.0 (0-0.2) k/uL PT 10.6 (9.0-12.0) sec INR 1.0 (<1.2) APTT 25.0 (22.0-30.0) sec Sodium 142 (137-145) mmol/L Potassium 3.4 L (3.5-5.1) mmol/L Chloride 106 (98-107) mmol/L Carbon Dioxide 28 (22-30) mmol/L Anion Gap 8 mmol/L BUN 12 (9-20) mg/dL Creatinine 0.76 (0.66-1.25) mg/dL Est GFR (CKD-EPI)AfAm >90 (>60 ml/min/1.73 sqM) Est GFR (CKD-EPI)NonAf 87 (>60 ml/min/1.73 sqM) Glucose 127 H (74-99) mg/dL Calcium 9.3 (8.4-10.2) mg/dL Magnesium 1.8 (1.6-2.3) mg/dL Total Bilirubin 0.8 (0.2-1.3) mg/dL AST 20 (17-59) U/L ALT 21 (4-49) U/L Alkaline Phosphatase 61 (38-126) U/L Creatine Kinase 41 L (55-170) U/L Total Protein 7.1 (6.3-8.2) g/dL Albumin 4.3 (3.5-5.0) g/dL Disposition Clinical Impression: Sciatica Disposition: HOME SELF-CARE Condition: Fair Instructions (If sedation given, give patient instructions): Fall Prevention f or Older Adults (ED) Is patient prescribed a controlled substance at d/c from ED?: No Referrals: Fidel Harmon DO [Primary Care Provider] - 1-2 days Time of Disposition: 09:38
--- NOTE | 2022-08-30 08:08 | CT ---
EXAMINATION TYPE: CT brain cspine wo con CT DLP: 1433.8 mGycm, Automated exposure control for dose reduction was used. DATE OF EXAM: 08/30/2022 7:54 AM COMPARISON: 01/15/2021. CLINICAL INDICATION:Male, 81 years old with history of fall, tia; Fall, TIA, Hx of Parkinson's Diseas e TECHNIQUE: Brain: Multiple axial CT images of the brain were obtained without IV contrast. Cspine: Axial CT images from the skull base to the inferior aspect of T2 we obtained without intraven ous contrast. Coronal and sagittal reformatted images were also reviewed. FINDINGS: Brain: Extra-axial spaces: No abnormal extra-axial fluid collections. Ventricular system: Dilatation in proportion to cerebral atrophy. Cerebral parenchyma: Cerebral atrophy. No acute intraparenchymal hemorrhage or mass effect. The jensen -white junction is well differentiated. Scattered hypoattenuating areas are seen within the white mat ter. Cerebellum: Unremarkable. Mass effect: No evidence of midline shift. Intracranial vasculature: Atherosclerotic calcifications of the intracranial vessels. Soft tissues: Normal. Calvarium/osseous structures: No depressed skull fracture. Paranasal sinuses and mastoid air cells: Mild scattered mucosal thickening and or secretions. Visualized orbits: Bilateral aphakia Cervical spine: Fracture: None. Osseous structures: Multilevel degenerative disc disease changes with endplate spurring and disc oste ophyte complex's. Vertebral alignment: Within normal limits. Spinal canal/Neural Foramina: No evidence of significant spinal canal narrowing. No evidence for sign ificant neural foraminal stenosis. Neck soft tissues: Prevertebral soft tissues are within normal limits. Other: The airway is patent. The lung apices are clear. Right azygous fissure noted. IMPRESSION: 1. No acute intracranial process. 2. Nonspecific white matter changes, likely secondary to chronic small vessel ischemic disease. 3. No evidence of cervical spine fracture. 4. Mild multilevel degenerative disc disease.
[2022-08-30 08:12] LABS: Basophils % (A) 1 %; Eosinophils # (A) 0.1 k/uL (0-0.7); Eosinophils % (A) 1 %; HCT 40.6 % (39.0-53.0); HGB 15.1 gm/dL (13.0-17.5); Lymphocytes # (A) 1.1 k/uL (1.0-4.8); Lymphocytes % (A) 14 %; MCH 34.5 pg (25.0-35.0); MCHC 37.3 g/dL (31.0-37.0); MCV 92.4 fL (80.0-100.0); Mean Platelet Volume 8.8; Monocytes # (A) 0.4 k/uL (0-1.0); Monocytes % (A) 6 %; Neutrophils # (A) 5.9 k/uL (1.3-7.7); Neutrophils % (A) 77 %; Platelet Count 155 k/uL (150-450); RBC 4.39 m/uL (4.30-5.90); RDW 13.1 % (11.5-15.5); WBC 7.6 k/uL (3.8-10.6)
[2022-08-30 08:25] LABS: ALT 21 U/L (4-49); AST 20 U/L (17-59); African American GFR (CKD) >90 (>60 ml/min/1.73 sqM); Albumin 4.3 g/dL (3.5-5.0); Alkaline Phosphatase 61 U/L (38-126); Anion Gap 8 mmol/L; Blood Urea Nitrogen 12 mg/dL (9-20); Calcium 9.3 mg/dL (8.4-10.2); Carbon Dioxide 28 mmol/L (22-30); Chloride 106 mmol/L (98-107); Creatine Kinase 41 U/L (55-170); Glucose 127 mg/dL (74-99); Magnesium 1.8 mg/dL (1.6-2.3); Non-African American GFR(CKD) 87 (>60 ml/min/1.73 sqM); Potassium 3.4 mmol/L (3.5-5.1); Sodium 142 mmol/L (137-145); Total Bilirubin 0.8 mg/dL (0.2-1.3); Total Protein 7.1 g/dL (6.3-8.2)
[2022-08-30 08:41] LABS: Prothrombin Time 10.6 sec (9.0-12.0)
[2022-08-30 10:16] VITALS: BP 184/83; PULSE 84; RESP 19; TEMP 97.9
== END 2022-08-30 10:16 | disposition home or self-care (01) ==
LOC: EC 06:48
DX: M54.31 Sciatica, right side (principal); K21.9 Gastro-esophageal reflux disease without esophagitis; I10 Essential (primary) hypertension; Z91.013 Allergy to seafood; Z91.030 Bee allergy status; Z88.9 Allergy status to unspecified drugs, medicaments and biological substances; Z79.82 Long term (current) use of aspirin; Z86.73 Personal history of transient ischemic attack (TIA), and cerebral infarction without residual deficits
CPT/HCPCS: 36415; 70450; 72125; 80053; 82550; 83735; 85025; 85610; 85730; 93005; 99285

== ENCOUNTER 2022-08-31 23:58 | Inpatient (IN) | payer MEDICARE, OTHER ==
[2022-09-01] MEDS ORDERED: SODIUM CHLORIDE 0.9% 1,000 ML IV STA (00:14)
--- NOTE | 2022-09-01 00:16 | ED ---
Weakness HPI - General Chief complaint: Neuro Symptoms/Deficit Stated complaint: Stroke-like symptoms Time Seen by Provider: 09/01/22 00:14 Source: patient, EMS, RN notes reviewed, old records reviewed, Caregiver Mode of arrival: EMS Limitations: physical limitation - History of Present Illness Initial comments: This is a 11-year-old male DF for evaluation, presented today for evaluation of slurred speech and some still reaction time. Also sciatic pain and issues with his leg. Patient was here in the ER yesterday for a fall on his head. Patient was sent for evaluation of possible CVA secondary to history of TIA Parkinson's disease. Patient has no significant neurological deficit currently. Patient has no complaints MD Complaint: generalized weakness, lack of energy, difficulty walking -: days(s) Location: generalized Severity: moderate Severity scale (1-10): 4 Consistency: constant Improves with: none Worsens with: none Context: history of similar Associated Symptoms: denies other symptoms - Related Data Home Medications Medication Instructions Recorded Confirmed Aspirin 325 mg PO DAILY 03/05/14 01/15/21 Dipyridamole 50 mg PO QID 03/05/14 01/15/21 Omeprazole [PriLOSEC] 20 mg PO BID 03/05/14 01/15/21 amLODIPine [Norvasc] 10 mg PO DAILY 03/05/14 01/15/21 hydroCHLOROthiazide [Hydrodiuril] 50 mg PO DAILY 03/05/14 01/15/21 EPINEPHrine (Auto Inject) [Epipen] 0.3 mg IM ONCE PRN 01/09/15 01/15/21 Acyclovir 400 mg PO BID 01/01/21 01/15/21 Benazepril HCl 40 mg PO DAILY 01/01/21 01/15/21 Bimatoprost [Lumigan 0.01% Ophth 1 drop BOTH EYES HS 01/01/21 01/15/21 Soln] Dicyclomine [Bentyl] 10 mg PO TID PRN 01/01/21 01/15/21 Finasteride [Proscar] 5 mg PO DAILY 01/01/21 01/15/21 Potassium Chloride ER [K-Dur 20] 40 meq PO DAILY 01/01/21 01/15/21 allopurinoL [Zyloprim] 100 mg PO HS 01/01/21 01/15/21 Potassium Chloride ER [K-Dur 20] 20 meq PO HS 01/15/21 01/15/21 Vit C/E/Zn/Coppr/Lutein/Zeaxan 1 cap PO DAILY 01/15/21 01/15/21 [Preservision Areds 2 Softgel] rOPINIRole HCL [Requip] 0.25 mg PO HS 01/15/21 01/15/21 Previous Rx's Medication Instructions Recorded ALPRAZolam [Xanax] 0.25 mg PO TID PRN #6 tab 01/20/21 Acetaminophen Tab [Tylenol] 500 mg PO Q6HR PRN tab 01/20/21 Carbidopa-Levodopa 25-100 mg 1 each PO BID tab 01/20/21 [Sinemet 25-100 mg] HYDROcodone/APAP 5-325MG [[place] 1 each PO Q6HR PRN #6 tab 01/20/21 5-325] Tobra-Dexamet 0.3-0.1% Eye Brittaney 1 drops BOTH EYES Q4HR 7 Days #5 ml 01/20/21 [Tobradex Ophth Susp] polyethylene glycoL 3350 [Miralax] 17 gm PO DAILY powd.pack 01/20/21 Allergies Allergy/AdvReac Type Severity Reaction Status Date / Time clopidogrel bisulfate Allergy Itching Verified 08/30/22 06:58 [From Plavix] shellfish derived [Shellfish] Allergy Anaphylaxis Verified 08/30/22 06:58 venom-honey bee Allergy Swelling Verified 08/30/22 06:58 [bee venom (honey bee)] Review of Systems ROS Statement: Those systems with pertinent positive or pertinent negative responses have been documented in the HPI. ROS Other: All systems not noted in ROS Statement are negative. 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 [place]-HAS HEARING AIDES BUT DOESN'T WEAR THEM. ENLARGED PROSTATE, BILAT CATARACTS, HYPOGLYCEMIA, HITAL HERNIA History of Any Multi-Drug Resistant Organisms: None Reported Additional Past Surgical History / Comment(s): HX BUNIONECTOMY, COLONOSCOPY Past Anesthesia/Blood Transfusion Reactions: Motion Sickness Additional Past Anesthesia/Blood Transfusion Reaction / Comment(s): HX MENIERE'S DISEASE Past Psychological History: No Psychological Hx Reported Smoking Status: Never smoker Past Alcohol Use History: Occasional Past Drug Use History: None Reported General Exam Limitations: physical limitation General appearance: alert, in no apparent distress Head exam: Present: atraumatic, normocephalic, normal inspection Eye exam: Present: normal appearance, PERRL, EOMI. Absent: scleral icterus, conjunctival injection, periorbital swelling ENT exam: Present: normal exam, mucous membranes moist Neck exam: Present: normal inspection. Absent: tenderness, meningismus, lymp hadenopathy Respiratory exam: Present: normal lung sounds bilaterally. Absent: respiratory distress, wheezes, rales, rhonchi, stridor Cardiovascular Exam: Present: regular rate, normal rhythm, normal heart sounds. Absent: systolic murmur, diastolic murmur, rubs, gallop, clicks GI/Abdominal exam: Present: soft, normal bowel sounds. Absent: distended, tenderness, guarding, rebound, rigid Extremities exam: Present: normal inspection, full ROM, normal capillary refill. Absent: tenderness, pedal edema, joint swelling, calf tenderness Back exam: Present: normal inspection Neurological exam: Present: alert, oriented X3, CN II-XII intact Psychiatric exam: Present: normal affect, normal mood Skin exam: Present: warm, dry, intact, normal color. Absent: rash Course Vital Signs 09/01/22 00:08 Temperature 98.1 F Pulse Rate 77 Respiratory 18 Rate Blood Pressure 152/83 O2 Sat by Pulse 96 Oximetry - Reevaluation(s) Reevaluation #1: 09/01/22 01:16 Medical record is reviewed Reevaluation #2: 09/01/22 01:16 Patient has no change in symptoms here in the ER Reevaluation #3: 09/01/22 01:17 Patient informed results and questions answered Medical Decision Making - Medical Decision Making 81 male to the emergency department for evaluation of CVA evaluation. No significant focal neurological deficits to suggest CVA here in the ER normal computed tomography scan, patient can be discharged home - Lab Data Result diagrams: 09/01/22 00:38 Lab Results 09/01/22 Range/Units 00:38 WBC 9.2 (3.8-10.6) k/uL RBC 4.41 (4.30-5.90) m/uL Hgb 14.7 (13.0-17.5) gm/dL Hct 40.9 (39.0-53.0) % MCV 92.9 (80.0-100.0) fL MCH 33.4 (25.0-35.0) pg MCHC 36.0 (31.0-37.0) g/dL RDW 12.9 (11.5-15.5) % Plt Count 162 (150-450) k/uL MPV 8.5 Neutrophils % 78 % Lymphocytes % 13 % Monocytes % 6 % Eosinophils % 1 % Basophils % 0 % Neutrophils # 7.2 (1.3-7.7) k/uL Lymphocytes # 1.2 (1.0-4.8) k/uL Monocytes # 0.5 (0-1.0) k/uL Eosinophils # 0.1 (0-0.7) k/uL Basophils # 0.0 (0-0.2) k/uL - EKG Data -: EKG Interpreted by Me (EKG is sinus 68 IN 200 QRS 15 QTC 438) - Radiology Data Radiology results: report reviewed (CT brain is negative for acute disease), image reviewed Disposition Clinical Impression: Altered mental status, Weakness Disposition: HOME SELF-CARE Condition: Good Instructions (If sedation given, give patient instructions): Weakness (ED) Is patient prescribed a controlled substance at d/c from ED?: No Referrals: Fidel Harmon DO [Primary Care Provider] - 1-2 days Time of Disposition: 01:25
[2022-09-01 01:11] LABS: Basophils % (A) 0 %; Eosinophils # (A) 0.1 k/uL (0-0.7); Eosinophils % (A) 1 %; HCT 40.9 % (39.0-53.0); HGB 14.7 gm/dL (13.0-17.5); Lymphocytes # (A) 1.2 k/uL (1.0-4.8); Lymphocytes % (A) 13 %; MCH 33.4 pg (25.0-35.0); MCV 92.9 fL (80.0-100.0); Mean Platelet Volume 8.5; Monocytes # (A) 0.5 k/uL (0-1.0); Monocytes % (A) 6 %; Neutrophils # (A) 7.2 k/uL (1.3-7.7); Neutrophils % (A) 78 %; Platelet Count 162 k/uL (150-450); RBC 4.41 m/uL (4.30-5.90); RDW 12.9 % (11.5-15.5); WBC 9.2 k/uL (3.8-10.6)
--- NOTE | 2022-09-01 01:22 | CT ---
EXAMINATION TYPE: CT brain wo con DATE OF EXAM: 09/01/2022 COMPARISON: 08/30/2022 HISTORY: ams CT DLP: 1106.4 mGycm Automated exposure control for dose reduction was used. There is moderate diffuse cerebral atrophy. There is no mass effect or midline shift. No sign of intr acranial hemorrhage. There is patchy hypodensity in the periventricular white matter. The calvarium i s intact. There is normal aeration of the mastoid sinuses. There is thinning of the corpus callosum. IMPRESSION: Cerebral atrophy and chronic small vessel ischemia. No acute intracranial abnormality. No change comp ared to recent exam.
[2022-09-01 01:33] LABS: ALT 9 U/L (4-49); AST 19 U/L (17-59); African American GFR (CKD) >90 (>60 ml/min/1.73 sqM); Albumin 3.9 g/dL (3.5-5.0); Alkaline Phosphatase 60 U/L (38-126); Anion Gap 5 mmol/L; Blood Urea Nitrogen 15 mg/dL (9-20); Carbon Dioxide 28 mmol/L (22-30); Chloride 105 mmol/L (98-107); Glucose 125 mg/dL (74-99); Magnesium 1.9 mg/dL (1.6-2.3); Non-African American GFR(CKD) 86 (>60 ml/min/1.73 sqM); Phosphorus 3.5 mg/dL (2.5-4.5); Potassium 3.4 mmol/L (3.5-5.1); Sodium 138 mmol/L (137-145); Total Bilirubin 0.6 mg/dL (0.2-1.3); Total Protein 6.7 g/dL (6.3-8.2)
[2022-09-01] MEDS ORDERED: ONDANSETRON 4 MG/2 ML VIAL IVP PRN (01:38)
[2022-09-01] MEDS ORDERED: NALOXONE 0.4 MG/ML 1 ML VIAL IV PRN (01:38)
[2022-09-01] MEDS ORDERED: MORPHINE SULFATE 4 MG/ML SYRINGE IV PRN (01:38)
--- NOTE | 2022-09-01 01:40 | ED ---
Medical Decision Making - Medical Decision Making 81 male to the emergency department for evaluation upon plans for discharge patient states he does not fill comfortable going home this the second ER visit in 2 days 1 for a fall of weakness and now we will believes is increasing weakness of his right side as well as NIH remains 0. No focal neurological deficits found on exam here. Patient does not fill cover with discharge will admit for neurology to evaluate - Lab Data Result diagrams: 09/01/22 00:38 09/01/22 00:38 Lab Results 09/01/22 09/01/22 Range/Units 00:38 00:38 WBC 9.2 (3.8-10.6) k/uL RBC 4.41 (4.30-5.90) m/uL Hgb 14.7 (13.0-17.5) gm/dL Hct 40.9 (39.0-53.0) % MCV 92.9 (80.0-100.0) fL MCH 33.4 (25.0-35.0) pg MCHC 36.0 (31.0-37.0) g/dL RDW 12.9 (11.5-15.5) % Plt Count 162 (150-450) k/uL MPV 8.5 Neutrophils % 78 % Lymphocytes % 13 % Monocytes % 6 % Eosinophils % 1 % Basophils % 0 % Neutrophils # 7.2 (1.3-7.7) k/uL Lymphocytes # 1.2 (1.0-4.8) k/uL Monocytes # 0.5 (0-1.0) k/uL Eosinophils # 0.1 (0-0.7) k/uL Basophils # 0.0 (0-0.2) k/uL Sodium 138 (137-145) mmol/L Potassium 3.4 L (3.5-5.1) mmol/L Chloride 105 (98-107) mmol/L Carbon Dioxide 28 (22-30) mmol/L Anion Gap 5 mmol/L BUN 15 (9-20) mg/dL Creatinine 0.78 (0.66-1.25) mg/dL Est GFR (CKD-EPI)AfAm >90 (>60 ml/min/1.73 sqM) Est GFR (CKD-EPI)NonAf 86 (>60 ml/min/1.73 sqM) Glucose 125 H (74-99) mg/dL Calcium 9.0 (8.4-10.2) mg/dL Phosphorus 3.5 (2.5-4.5) mg/dL Magnesium 1.9 (1.6-2.3) mg/dL Total Bilirubin 0.6 (0.2-1.3) mg/dL AST 19 (17-59) U/L ALT 9 (4-49) U/L Alkaline Phosphatase 60 (38-126) U/L Total Protein 6.7 (6.3-8.2) g/dL Albumin 3.9 (3.5-5.0) g/dL Disposition Clinical Impression: Altered mental status, Weakness, Transient cerebral ischemia Disposition: HOME SELF-CARE Condition: Good Instructions (If sedation given, give patient instructions): Weakness (ED) Is patient prescribed a controlled substance at d/c from ED?: No Referrals: Fidel Harmon DO [Primary Care Provider] - 1-2 days Time of Disposition: 01:40
[2022-09-01] MEDS: SODIUM CHLORIDE 0.9% 1,000 ML IV SCH ×3 (05:27→20:23)
[2022-09-01] MEDS: amLODIPine 10 MG TAB PO SCH (08:24)
--- NOTE | 2022-09-01 12:11 | P.CNNES ---
History of Present Illness Consult date: 09/01/22 Requesting physician: Valeriano Lawton Reason for Consult: weakness, TIA History of Present Illness: This is a 81-year-old gentleman with history of TIAs, Parkinson's disease, early onset dementia, hypertension who presented emergency department on 08/31/2022 close to midnight for slurred speech and weakness. Some of the history is obtained from medical records as well as the patient's son (via phone). According to the son yesterday the patient went to sleep and woke up at night unsure what time he woke up and felt weak and as a result his facility and sent the patient over to the hospital for further evaluation. Per the son on known exact symptoms or last normal over time he woke up at. According to the ED note the patient had no neurological deficits to him and had no complaints. It seems that the patient had a fall and hit the head according to the ED. Per the ED the patient did not feel comfortable going home since this is the second ER visit in 2 days because of the fall and weakness and the patient felt she was weak on the right side but the ED stated his NIH stroke scale was a 0 and had no neurological deficit on his exam. Per the nurse patient was having difficulty swallowing when she examined him today. Patient is on aspirin 325 daily at home. According to the son patient follows up with Dr. Hermosillo for his Parkinson's disease and was told he has early onset dementia. Diagnosed with those diagnosing for past one year. Some of the workup during this hospital visit consisted of: CBC with the frontals unremarkable Initial serum glucose is 125 and potassium 3.4 otherwise rest of panel is unremarkable. CT of the head is reported as cerebral atrophy and chronic small vessel i schemia. No acute intracranial abnormality. No change compared to recent exam. I personally reviewed the CT and there is no acute or subacute ischemia. There is no intracranial hemorrhage. I personally reviewed the EKG report. Review of Systems Review of system: The 12 point system was reviewed and apparent positive and negative per HPI. 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 [place]-HAS HEARING AIDES BUT DOESN'T WEAR THEM. ENLARGED PROSTATE, BILAT CATARACTS, HYPOGLYCEMIA, HITAL HERNIA History of Any Multi-Drug Resistant Organisms: None Reported Additional Past Surgical History / Comment(s): HX BUNIONECTOMY, COLONOSCOPY Past Anesthesia/Blood Transfusion Reactions: Motion Sickness Additional Past Anesthesia/Blood Transfusion Reaction / Comment(s): HX MENIERE'S DISEASE Past Psychological History: No Psychological Hx Reported Smoking Status: Never smoker Past Alcohol Use History: Occasional Past Drug Use History: None Reported Medications and Allergies Home Medications Medication Instructions Recorded Confirmed Type Aspirin 325 mg PO DAILY 03/05/14 09/01/22 History Dipyridamole 50 mg PO QID 03/05/14 09/01/22 History Omeprazole [PriLOSEC] 20 mg PO DAILY 03/05/14 09/01/22 History amLODIPine [Norvasc] 10 mg PO DAILY 03/05/14 09/01/22 History hydroCHLOROthiazide [Hydrodiuril] 50 mg PO DAILY 03/05/14 09/01/22 History Acyclovir 400 mg PO BID 01/01/21 09/01/22 History Benazepril HCl 40 mg PO DAILY 01/01/21 09/01/22 History Bimatoprost [Lumigan 0.01% Ophth 1 drop BOTH EYES HS 01/01/21 09/01/22 History Soln] Dicyclomine [Bentyl] 10 mg PO DAILY 01/01/21 09/01/22 History Finasteride [Proscar] 5 mg PO DAILY 01/01/21 09/01/22 History allopurinoL [Zyloprim] 100 mg PO HS 01/01/21 09/01/22 History Potassium Chloride ER [K-Dur 20] 20 meq PO BID 01/15/21 09/01/22 History Vit C/E/Zn/Coppr/Lutein/Zeaxan 1 cap PO BID 01/15/21 09/01/22 History [Preservision Areds 2 Softgel] rOPINIRole HCL [Requip] 0.25 mg PO HS 01/15/21 09/01/22 History Carbidopa-Levodopa 25-100 mg 1 tab PO TID 09/01/22 09/01/22 History [Sinemet 25-100 mg] Donepezil [Aricept] 10 mg PO HS 09/01/22 09/01/22 History sitaGLIPtin [Januvia] 100 mg PO DAILY 09/01/22 09/01/22 History tadalafiL 5 mg PO DAILY 09/01/22 09/01/22 History Allergies Allergy/AdvReac Type Severity Reaction Status Date / Time clopidogrel bisulfate Allergy Itching Verified 08/30/22 06:58 [From Plavix] shellfish derived [Shellfish] Allergy Anaphylaxis Verified 08/30/22 06:58 venom-honey bee Allergy Swelling Verified 08/30/22 06:58 [bee venom (honey bee)] Physical Examination - Vital Signs Vital Signs: Vital Signs Temp Pulse Resp BP Pulse Ox 09/01/22 07:28 80 18 181/81 98 09/01/22 05:24 63 18 163/85 95 09/01/22 04:52 98.5 F 88 18 09/01/22 03:06 74 12 168/81 96 09/01/22 02:00 62 18 09/01/22 00:08 98.1 F 77 18 152/83 96 Intake and Output 08/31/22 09/01/22 09/01/22 22:59 06:59 14:59 Output Total 900 Balance -900 Output: Urine 900 Other: Weight 81.647 kg GENERAL: The patient is lying in bed and is not in acute distress. CHEST: The heart rate is regular rate rhythm. No murmurs to auscultation. LUNG: Clear to auscultation bilaterally no wheezing noted throughout. Not labored breathing. ABDOMEN/GI: Bowel sounds present in all 4 quadrants. No tenderness to palpation throughout. NEUROLOGICAL: Higher mental function: The patient is drowsy but is awakeable to voice. Is oriented to self, stated the current month and stated he was in the hospital but could not tell me year. Is following commands. Is following some simple commands. Limited language. No neglect. Cranial nerves: He had his eyes closed the entire time. I had to manually open his eye and seems erythematous in both sclera. Very hard to appreciated primary gaze. The pupils appeared round, equal. Has moderate amount of right lower facial weakness and has salivia out of right mouth. Has mild dysarthria noted. Otherwise rest is limited. Motor: The strength is hard to assess individual muscles because of cooperation. Has right upper extremity drift and weakness over the right lower but has antigravity on both. Left side appears strong. Normal bulk. Slight decrease tone over the right. Cerebellum: Unable to assess. Sensation: Unable to assess. Reflexes (right/left): 1+ throughout. Plantars are mute bilaterally. Results - Laboratory Findings CBC and BMP: 09/01/22 00:38 09/01/22 00:38 Abnormal Lab Findings: Abnormal Labs 09/01/22 00:38 Potassium 3.4 L Glucose 125 H Assessment and Plan Assessment: Acute right sided weakness (facial, upper and lower extremity, dysarthria) due to acute ischemic stroke. Unsure exam last normal. No IV tpa since risk outweigh benefit. Dyphagia due to above Parkinson's disease Early onset dementia (according to his neurologist) Plan: I ordered stroke work-up: MRI Brain, CTA head and neck, 2D echo, lipid panel, HbA1c, TSH). Started on ASA 300mg suppository since cannot swallow. Ordered Lipitor 40mg qhs. PT, OT and GRAVURE PRESS OPERATOR consulted. Neuro checks Cardiac monitoring. Consider PEG tube if continues to have dysphagia Will defer rest of medical management to primary team. For DVT prophylaxis: Started on subq heparin 5000U every 8 hours. The plan is discussed with the patient's son (via phone) and his nurse. Thank you for the consultation. Time with Patient: Greater than 30
[2022-09-01] MEDS ORDERED: POTASSIUM CHLORIDE 20 MEQ in WATER FOR INJECTION 1 100ML.BAG IVPB STA (14:11)
--- NOTE | 2022-09-01 15:23 | CT ---
EXAMINATION TYPE: CT angio head neck DATE OF EXAM: 09/01/2022 COMPARISON: Brain earlier today HISTORY: 81-year-old male stroke TECHNIQUE: Contiguous axial scanning of the head and neck performed with IV Contrast, patient injecte d with 65 mL of Isovue 370. Coronal/sagittal MIP reconstructions performed. 3-D reconstructions gener ated on a dedicated independent workstation. CT DLP: 422.7 mGycm Automated exposure control for dose reduction was used. FINDINGS: NECK: Normal variant azygous fissure. Conventional arch vessel branching anatomy. Mild atherosclerotic calcification at the origin of the right vertebral artery. Both vertebral arteri es are otherwise codominant and patent throughout the course. Focally tortuous proximal right common carotid artery which is otherwise patent. Prominent atherosclerotic calcification at the right carotid bulb resulting in a severe, just over 80 % stenosis by NASCET criteria. Left common carotid artery is patent. Mild atherosclerotic change proximal left ICA with mild, 40% stenosis at the level of the left caroti d bulb by NASCET. Remainder of the left ICA is patent. HEAD: The vertebral and basilar arteries are patent as is the remainder of the posterior circulation. We note a focal moderate to severe stenosis at the junction of the P1 and P2 segment right posterior cerebral artery, axial series 413 image 80. Moderate atherosclerotic calcifications at the bilateral carotid siphons. Moderate, probably 60% sten osis supraclinoid left ICA, axial image 79. Anterior circulation otherwise patent. No aneurysmal change is seen. Similar moderate hydrocephalus. IMPRESSION: NECK: 1. Severe, just over 80% proximal right ICA stenosis. 2. Mild, 40% proximal left ICA stenosis. HEAD: 3. Moderate ventriculomegaly redemonstrated. This may be ex vacuo hydrocephalus from central cerebral atrophy. Correlate to exclude the possibility of NPH. 4. Moderate atherosclerotic narrowing supraclinoid left ICA. 5. Focal moderate to severe stenosis at the P1/P2 junction of the right SUPERVISOR INSTRUMENT REPAIR. 6. No large vessel intracranial arterial occlusion or aneurysmal changes seen.
--- NOTE | 2022-09-01 15:56 | CA ---
Transthoracic Echo Report Name: Arnel Blair Age: 81 Gender: M : 1940 Exam Date: 09/01/2022 13:40 Exam Location: [facility] Ht (in): 65 Wt (lb): 180 Ordering Physician: Dean Cadena DO Attending/Referring Phys: Dean Cadena DO [employer] Francheska Jimenez RDCS Procedure CPT: Indications: stroke Cardiac Hx: Technical Quality: Contrast 1: Total Dose (mL): Contrast 2: Total Dose (mL): MEASUREMENTS (Male / Female) Normal Values 2D ECHO LV Diastolic Diameter PLAX 4.3 cm 4.2 - 5.9 / 3.9 - 5.3 cm LV Systolic Diameter PLAX 3.1 cm IVS Diastolic Thickness 1.2 cm 0.6 - 1.0 / 0.6 - 0.9 cm LVPW Diastolic Thickness 1.4 cm 0.6 - 1.0 / 0.6 - 0.9 cm LV Relative Wall Thickness 0.6 LA Systolic Diameter LX 3.3 cm 3.0 - 4.0 / 2.7 - 3.8 cm LA Volume 39.7 cm??? 18 - 58 / 22 - 52 cm??? M-MODE Aortic Root Diameter MM 3.2 cm LA Systolic Diameter MM 3.5 cm LA Ao Ratio MM 1.1 MV E Point Septal Separation 0.6 cm AV Cusp Separation MM 1.6 cm DOPPLER MV Area PHT 2.7 cm??? Mitral E Point Velocity 60.6 cm/s Mitral A Point Velocity 93.3 cm/s Mitral E to A Ratio 0.7 MV Deceleration Time 280.3 ms MV E' Velocity 6.1 cm/s Mitral E to MV E' Ratio 10.0 FINDINGS Left Ventricle Mildly increased septal wall thickness. Left ventricular cavity size normal. Left ventricular ejection fraction is estimated at 55 %. Right Ventricle Normal right ventricular size and function. Right ventricular systolic pressure within normal limits. Right Atrium Normal right atrial size. Left Atrium Normal left atrial size. Mitral Valve Structurally normal mitral valve. Mild mitral regurgitation. Aortic Valve Trileaflet aortic valve. Tricuspid Valve Structurally normal tricuspid valve. Mild tricuspid regurgitation. Pulmonic Valve Structurally normal pulmonic valve. Pericardium Normal pericardium. Aorta Normal size aortic root and proximal ascending aorta. CONCLUSIONS LVH with preserved systolic function Previewed by: Dr. Harjinder Samano MD (Electronically Signed) Final Date: 01 September 2022 15:55
[2022-09-01] MEDS: ASPIRIN 300 MG SUPP RECTAL SCH (18:29)
[2022-09-01] MEDS: HEPARIN SODIUM,PORCINE/PF 5,000 UNIT/0.5 ML SYRINGE SQ SCH ×2 (18:30→23:38)
[2022-09-01] MEDS ORDERED: DEXTROSE 50% SYRINGE 50 ML IVP PRN ×2 (19:38)
[2022-09-01] MEDS: DONEPEZIL 10 MG TAB PO SCH (20:21)
[2022-09-01] MEDS: VIT A,C & E-LUTEIN-MINERALS 1 EACH TAB PO SCH (20:21)
[2022-09-01] MEDS: allopurinoL 100 MG TAB PO SCH (20:21)
[2022-09-01] MEDS: CARBIDOPA-LEVODOPA 25-100 MG 1 EACH TAB PO SCH (20:21)
[2022-09-01] MEDS: LATANOPROST 0.005% OPHTH DROPS 2.5 ML BTL BOTH EYES SCH (20:21)
[2022-09-01] MEDS: lisinopriL 20 MG TAB PO SCH (20:21)
[2022-09-01 20:22] LABS: Glucose,Whole Blood 122 mg/dL (70-110)
[2022-09-01] MEDS: INSULIN ASPART (NovoLOG) 100 UNIT/ML VIAL SQ SCH (20:22)
[2022-09-01 20:45] LABS: LDL Cholesterol,Calculated 108.7 mg/dL (0.0-131.0)
[2022-09-01] MEDS ORDERED: ATORVASTATIN 40 MG TAB PO SCH (21:00)
--- NOTE | 2022-09-01 22:42 | P.HPIM ---
History of Present Illness H&P Date: 09/01/22 Chief Complaint: Slurred speech Patient is a 81-year-old male with a known history of CVA, Mnire's disease, hearing disorder/deafness, hypertension, BPH and early onset dementia was sent to ER from [facility] due to new onset slurred speech and generalized weakness. Patient apparently fell 2 days ago. Patient cannot provide any history. Patient is also having difficulty swallowing and is currently on pured diet patient was seen by INFORMATION SERVICES MANAGER consult. History was taken from medical records. Patient follows with neurology, as an outpatient for Parkinson disease and early onset dementia. EKG showed sinus rhythm CT head showed cerebral atrophy and chronic small vessel ischemia. No acute intracranial [place]. No change from recent exam. Laboratory data showed WBC 9.2 hemoglobin 14.7 and platelets 162 Sodium 138 potassium 3.4 chloride 105 bicarb is 28 BUN 15 and creatinine 0.78 and blood sugar is 125 Liver enzymes are not elevated and TSH level is 1.64. Review of Systems Review of systems could not be obtained from the patient. ROS unobtainable: due to mental status Past Medical History Past Medical History: CVA/TIA, Eye Disorder, GERD/Reflux, Hearing Disorder / Deafness, Hypertension, Prostate Disorder Additional Past Medical History / Comment(s): HX CVA 1987, MENIERE'S DISEASE, 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 [place]-HAS HEARING AIDES BUT DOESN'T WEAR THEM. ENLARGED PROSTATE, BILAT CATARACTS, HYPOGLYCEMIA, HITAL HERNIA History of Any Multi-Drug Resistant Organisms: None Reported Additional Past Surgical History / Comment(s): HX BUNIONECTOMY, COLONOSCOPY Past Anesthesia/Blood Transfusion Reactions: Motion Sickness Additional Past Anesthesia/Blood Transfusion Reaction / Comment(s): HX MENIERE'S DISEASE Past Psychological History: No Psychological Hx Reported Smoking Status: Never smoker Past Alcohol Use History: Occasional Past Drug Use History: None Reported Medications and Allergies Home Medications Medication Instructions Recorded Confirmed Type Aspirin 325 mg PO DAILY 03/05/14 09/01/22 History Dipyridamole 50 mg PO QID 03/05/14 09/01/22 History Omeprazole [PriLOSEC] 20 mg PO DAILY 03/05/14 09/01/22 History amLODIPine [Norvasc] 10 mg PO DAILY 03/05/14 09/01/22 History hydroCHLOROthiazide [Hydrodiuril] 50 mg PO DAILY 03/05/14 09/01/22 History Acyclovir 400 mg PO BID 01/01/21 09/01/22 History Benazepril HCl 40 mg PO DAILY 01/01/21 09/01/22 History Bimatoprost [Lumigan 0.01% Ophth 1 drop BOTH EYES HS 01/01/21 09/01/22 History Soln] Dicyclomine [Bentyl] 10 mg PO DAILY 01/01/21 09/01/22 History Finasteride [Proscar] 5 mg PO DAILY 01/01/21 09/01/22 History allopurinoL [Zyloprim] 100 mg PO HS 01/01/21 09/01/22 History Potassium Chloride ER [K-Dur 20] 20 meq PO BID 01/15/21 09/01/22 History Vit C/E/Zn/Coppr/Lutein/Zeaxan 1 cap PO BID 01/15/21 09/01/22 History [Preservision Areds 2 Softgel] rOPINIRole HCL [Requip] 0.25 mg PO HS 01/15/21 09/01/22 History Carbidopa-Levodopa 25-100 mg 1 tab PO TID 09/01/22 09/01/22 History [Sinemet 25-100 mg] Donepezil [Aricept] 10 mg PO HS 09/01/22 09/01/22 History sitaGLIPtin [Januvia] 100 mg PO DAILY 09/01/22 09/01/22 History tadalafiL 5 mg PO DAILY 09/01/22 09/01/22 History Allergies Allergy/AdvReac Type Severity Reaction Status Date / Time clopidogrel bisulfate Allergy Itching Verified 08/30/22 06:58 [From Plavix] shellfish derived [Shellfish] Allergy Anaphylaxis Verified 08/30/22 06:58 venom-honey bee Allergy Swelling Verified 08/30/22 06:58 [bee venom (honey bee)] Physical Exam Vitals: Vital Signs Temp Pulse Resp BP Pulse Ox 09/01/22 07:28 80 18 181/81 98 09/01/22 05:24 63 18 163/85 95 09/01/22 04:52 98.5 F 88 18 09/01/22 03:06 74 12 168/81 96 09/01/22 02:00 62 18 09/01/22 00:08 98.1 F 77 18 152/83 96 Intake and Output 08/31/22 09/01/22 09/01/22 22:59 06:59 14:59 Output Total 900 Balance -900 Output: Urine 900 Other: Weight 81.647 kg PHYSICAL EXAMINATION: Patient is lying in the bed comfortably, no acute distress, awake alert but not oriented... HEENT: Normocephalic. Neck is supple. Pupils reactive. Nostrils clear. Oral cavity is moist. Neck reveals no JVD, carotid bruits, or thyromegaly. CHEST EXAMINATION: Trachea is central. Symmetrical expansion. Lung david clear to auscultation and percussion. CARDIAC: Normal S1, S2 with no gallops. No murmurs ABDOMEN: Soft. Bowel sounds present. Nontender. No organomegaly. No abdominal bruits. Extremities: reveal no edema. No clubbing or cyanosis Neurologically awake, alert, oriented x 0. Right-sided weakness and facial droop. Skin: No rash or skin lesions. Psychiatric: Could not be assessed. Musculoskeletal: No joint swelling or deformity. Results CBC & Chem 7: 09/01/22 00:38 09/01/22 00:38 Labs: Abnormal Lab Results - Last 24 Hours (Table) 09/01/22 Range/Units 00:38 Potassium 3.4 L (3.5-5.1) mmol/L Glucose 125 H (74-99) mg/dL Thrombosis Risk Factor Assmnt - DVT/VTE Prophylaxis DVT/VTE Prophylaxis: Pharmacologic Prophylaxis ordered Assessment and Plan Assessment: Slurred speech and right-sided weakness due to acute CVA. Difficulty swallowing Early onset dementia Parkinson's disease Prior history of CVA in 1987 Mnire's disease Hypertension Hearing disorder/deafness GERD Diabetes type 2 DVT prophylaxis Plan: Patient will be continued on telemetry monitoring and continued neurochecks. Was given aspirin suppository. Patient was seen by INFORMATION SERVICES MANAGER and was started on pu red diet. Continue with statins and stroke work-up including MRI of the brain and CTA head and neck was ordered. CT head showed cerebral atrophy and chronic small vessel ischemia.MRI of the brain was ordered. TSH 4.5 within normal limits. LDL 108.7. Neurology is on board. Time with Patient: Greater than 30
[2022-09-02 06:30] LABS: Glucose,Whole Blood 130 mg/dL (70-110)
[2022-09-02 08:08] LABS: Basophils # (A) 0.1 k/uL (0-0.2); Basophils % (A) 0 %; Eosinophils % (A) 0 %; HGB 16.7 gm/dL (13.0-17.5); Lymphocytes # (A) 1.2 k/uL (1.0-4.8); Lymphocytes % (A) 11 %; MCH 33.1 pg (25.0-35.0); MCHC 35.5 g/dL (31.0-37.0); MCV 93.2 fL (80.0-100.0); Mean Platelet Volume 8.7; Monocytes # (A) 0.7 k/uL (0-1.0); Monocytes % (A) 6 %; Neutrophils # (A) 8.9 k/uL (1.3-7.7); Neutrophils % (A) 80 %; Platelet Count 172 k/uL (150-450); RBC 5.04 m/uL (4.30-5.90); WBC 11.1 k/uL (3.8-10.6)
[2022-09-02] MEDS: NON FORMULARY DRUG (Tadalafil [Tadalafil] 5 MG Tablet) PO SCH (08:17)
[2022-09-02 08:23] LABS: ALT 17 U/L (4-49); AST 23 U/L (17-59); African American GFR (CKD) >90 (>60 ml/min/1.73 sqM); Albumin 4.3 g/dL (3.5-5.0); Alkaline Phosphatase 78 U/L (38-126); Anion Gap 10 mmol/L; Blood Urea Nitrogen 9 mg/dL (9-20); Calcium 9.6 mg/dL (8.4-10.2); Carbon Dioxide 27 mmol/L (22-30); Chloride 105 mmol/L (98-107); Glucose 129 mg/dL (74-99); Non-African American GFR(CKD) 87 (>60 ml/min/1.73 sqM); Potassium 3.3 mmol/L (3.5-5.1); Sodium 142 mmol/L (137-145); Total Bilirubin 1.2 mg/dL (0.2-1.3); Total Protein 7.2 g/dL (6.3-8.2)
[2022-09-02] MEDS: INSULIN ASPART (NovoLOG) 100 UNIT/ML VIAL SQ SCH ×4 (08:23→21:47)
[2022-09-02] MEDS: VIT A,C & E-LUTEIN-MINERALS 1 EACH TAB PO SCH ×2 (08:33→21:46)
[2022-09-02] MEDS: amLODIPine 10 MG TAB PO SCH (08:33)
[2022-09-02] MEDS: FINASTERIDE 5 MG TAB PO SCH (08:34)
[2022-09-02] MEDS: CARBIDOPA-LEVODOPA 25-100 MG 1 EACH TAB PO SCH ×3 (08:34→21:46)
[2022-09-02] MEDS: SODIUM CHLORIDE 0.9% 1,000 ML IV SCH (08:34)
[2022-09-02] MEDS: PANTOPRAZOLE 40 MG TABLET PO SCH (08:34)
[2022-09-02] MEDS: lisinopriL 20 MG TAB PO SCH (08:34)
[2022-09-02] MEDS: HEPARIN SODIUM,PORCINE/PF 5,000 UNIT/0.5 ML SYRINGE SQ SCH ×3 (08:34→23:33)
[2022-09-02] MEDS: DICYCLOMINE 10 MG CAP PO SCH (08:34)
--- NOTE | 2022-09-02 10:51 | MR ---
EXAMINATION TYPE: MR brain wo con DATE OF EXAM: 09/02/2022 COMPARISON: CT brain from 1 day earlier and older studies mild to moderate ventricular and sulcal pro minence. HISTORY: right sided weakness. stroke, ataxia. TECHNIQUE: Multiplanar, multisequence imaging of the brain and brainstem is performed without IV cont rast. FINDINGS: Diffusion weighted images demonstrate oval area of increased signal on diffusion weighted images with diminished signal on ADC mapping showing T2 hyperintensity in the deep left posterior frontal lobe a t level of [place] radiata extending inferiorly measuring up to 1.5 cm in length image 160 series 303 consistent with evolving acute infarct. This extends inferiorly and laterally to the level of the pos terior medial left basal ganglia and involving the posterior limb of the internal capsule. There is background mild to moderate ventricular and sulcal prominence with more prominent ventricles unchanged from prior CTs. Underlying normal pressure hydrocephalus not excluded but not changed from prior CTs. There are multifocal and confluent areas of T2 hyperintensity in the deep and periventric ular white matter redemonstrated. T2 Star weighted images show no suspicious intraparenchymal blood p roduct or evidence of acute hemorrhagic infarct. Midline structures redemonstrate normal morphology. The craniocervical junction appears within nader l limits. Normal vascular flow voids are present. There are small mucous retention cysts and/or polyp s in the inferior maxillary sinuses otherwise paranasal sinuses are clear the globes are intact. IMPRESSION: 1. Confirmation of evolving acute infarct posterior left frontal lobe at level of [place] radiata exte nding inferiorly and laterally to involve portion of the posterior limb internal capsule and minimal portion of the posterior left basal ganglia. 2. Background mild to moderate diffuse cerebral atrophy and moderate to severe chronic small vessel i schemic change redemonstrated.
[2022-09-02] MEDS: ASPIRIN 300 MG SUPP RECTAL SCH (11:27)
[2022-09-02 11:32] LABS: Glucose,Whole Blood 152 mg/dL (70-110)
[2022-09-02] MEDS ORDERED: ASPIRIN 325 MG TAB PO SCH (12:00)
--- NOTE | 2022-09-02 13:28 | US ---
EXAMINATION TYPE: US carotid duplex BILAT DATE OF EXAM: 09/02/2022 COMPARISON: CTa 2021, US 2020 CLINICAL HISTORY: acute stroke. Acute stroke. TECHNIQUE: Carotid duplex ultrasound examination. Indirect Doppler criteria was utilized. FINDINGS: EXAM MEASUREMENTS: RIGHT: Peak Systolic Velocity (PSV) cm/sec ----- Right CCA: 79.0 ----- Right ICA: 182.6 ----- Right ECA: 80.8 ICA/CCA ratio: 2.3 RIGHT: End Diastole cm/sec ----- Right CCA: 0.0 ----- Right ICA: 15.3 ----- Right ECA: 5.8 LEFT: Peak Systolic Velocity (PSV) cm/sec ----- Left CCA: 84.2 ----- Left ICA: 86.2 ----- Left ECA: 106.9 ICA/CCA ratio: 1.0 LEFT: End Diastole cm/sec ----- Left CCA: 7.3 ----- Left ICA: 11.1 ----- Left ECA: 0.0 VERTEBRALS (direction of flow): Right Vertebral: Antegrade Left Vertebral: Antegrade Rhythm: Normal MED SPECIALIST NOTES: Again, as mentioned on prior ultrasound study, it was difficult to determine ri ght ICA versus right ECA. Plaque seen within bulbs, proximal right ICA and within left ICA. *Elevated velocity within right ICA with stenosis noted. IMPRESSION: 1. 50-69% stenosis of the right carotid bifurcation by peak systolic velocity and ratio 2. Less than 50% stenosis of the left carotid bifurcation. Criteria for Assigning % of Stenosis / Diameter reduction (Estimation based on the indirect measurements of the internal carotid artery velocities (ICA PSV). 1. Normal (no stenosis)=ICA PSV < 125 cm/s: ratio < 2.0: ICA EDV<40 cm/s. 2. Less than 50% stenosis=ICA PSV < 125 cm/s: ratio < 2.0: ICA EDV<40 cm/s. 3. 50 to 69% stenosis=ICA PSV of 125 to 230 cm/s: ratio 2.0 ? 4.0: ICA EDV 40-100 cm/s. 4. Greater than 70% stenosis to near occlusion= ICA PSV > 230 cm/s: ratio > 4.0: ICA EDV > 100 cm/s. 5. Near occlusion= ICA PSV velocities may be low or undetectable: variable ratio and ICA EDV. 6. Total occlusion=unable to detect flow.
[2022-09-02] MEDS ORDERED: Potassium Replacement Protocol 1 EACH MISC MISCELLANE PRN (14:12)
[2022-09-02] MEDS ORDERED: CLOPIDOGREL 75 MG TAB PO SCH (14:30)
--- NOTE | 2022-09-02 14:31 | P.PN ---
Subjective Progress Note Date: 09/02/22 The patient is seen at bedside and feels about the same. Continues to have weakness over the right side. Per the nurse, he is able to swallow pills today. Objective - Vital Signs Vital signs: Vital Signs Temp 97.6 F 09/02/22 12:28 Pulse 81 09/02/22 13:05 Resp 19 09/02/22 13:05 BP 167/78 09/02/22 12:28 Pulse Ox 95 09/02/22 12:28 FiO2 Intake & Output 09/01/22 09/02/22 09/02/22 18:59 06:59 18:59 Intake Total 374 Output Total 900 Balance -900 374 Weight 81.647 kg Intake: IV 20 Invasive Line 2 20 Oral 354 Output: Urine 900 Other: Voiding Method External Catheter External Catheter External Catheter # Voids 1 - Exam GENERAL: The patient is lying in bed and is not in acute distress. NEUROLOGICAL: Higher mental function: The patient is awake, alert, oriented to self, place and time. Is following simple commands. No aphasia. No neglect. Cranial nerves: The pupils appeared round, equal. Has moderate amount of right lower facial weakness and has salivia out of right mouth. Has mild dysarthria noted. Otherwise rest is limited. Motor: The strength is hard to assess individual muscles because of cooperation. Has right upper extremity drift and weakness over the right lower but has antigravity on both. Left side appears strong. Normal bulk. Slight decrease tone over the right. Cerebellum: Unable to assess. Sensation: Unable to assess. Reflexes (right/left): 1+ throughout. Plantars are mute bilaterally. Some of the workup during this hospital visit consisted of: HbA1c: 5.5 TSH: 1.64 Lipid panel: TG 106, cholestrol 167, LDL [address] of the head is reported as cerebral atrophy and chronic small vessel ischemia. No acute intracranial abnormality. No change compared to recent exam. I personally reviewed the CT and there is no acute or subacute ischemia. There is no intracranial hemorrhage. CTA head and neck is reported as for the neck: Severe, just over 80% proximal right ICA stenosis. Mild, 40% proximal left ICA stenosis. While head: Moderate ventriculomegaly redemonstrated. This may be ex-vacuo hydrocephalus from central cerebral atrophy. Correlate to exclude the possibility of NPH. Moderate atherosclerotic narrowing supraclinoid left ICA. Focal moderate to severe stenosis at the P1/P2 junction of right ACQUISITION COST ESTIMATOR. No large vessel intracranial arterial occlusion or aneurysmal changes seen. MRI BRain is reported as confirmation of evolving acute infarct posterior left frontal lobe at level of [place] radiata extending inferiorly and laterally to involve portion of the posterior limb internal capsule and minimal portion of the posterior left basal ganglia. Background mild to moderate diffuse cerebral atrophy and moderate to severe chronic small vessel ischemic change redemonstrated. I personally reviewed MRI and agree with report. - Labs CBC & Chem 7: 09/02/22 07:22 09/02/22 07:22 Labs: Abnormal Lab Results - Last 24 Hours (Table) 09/01/22 09/01/22 09/02/22 Range/Units 00:38 20:20 06:29 WBC (3.8-10.6) k/uL Neutrophils # (1.3-7.7) k/uL Potassium (3.5-5.1) mmol/L Glucose (74-99) mg/dL POC Glucose (mg/dL) 122 H 130 H (70-110) mg/dL HDL Cholesterol 37.10 L (40.00-60.00) mg/dL 09/02/22 09/02/22 09/02/22 Range/Units 07:22 07:22 11:31 WBC 11.1 H (3.8-10.6) k/uL Neutrophils # 8.9 H (1.3-7.7) k/uL Potassium 3.3 L (3.5-5.1) mmol/L Glucose 129 H (74-99) mg/dL POC Glucose (mg/dL) 152 H (70-110) mg/dL HDL Cholesterol (40.00-60.00) mg/dL Assessment and Plan Assessment: Acute right sided weakness (facial, upper and lower extremity, dysarthria) due to acute ischemic stroke. MRI Brain: Left [place] radiata extending to posterior limb internal capsule and minimal portion of the posterior left basal ganglia. Stroke appears due to small vessel disease to patient risk factors. Right hemiparesis due ischemic stroke Asymptomatic Severe right ICA stenosis per CTA while 40% on left. Moderate atherosclerotic narrowing supraclinoid left ICA. Focal moderate to severe stenosis at the P1/P2 junction of right ACQUISITION COST ESTIMATOR per CTA Dysphagia due to acute ischemic stroke Parkinson's disease Early onset dementia (according to his neurologist) Plan: Switch ASA 300mg suppository to 81mg PO and Started Brilinta 90mg 1 tab bid daily (started both new during this admission. Not plavix since has allergy to Plavix). I change Lipitor from 40mg to 80mg qhs for secondary stroke prophylaxis and help stabilize plaque of carotid stenosis. Pending 2D echo. Consulted vascular surgery for carotid stenosis. Moderate atherosclerotic narrowing supraclinoid left ICA. Focal moderate to severe stenosis at the P1/P2 junction of right ACQUISITION COST ESTIMATOR. Will have patient follow-up with interventional neurology team as outpatient. PT, OT and CARGO BROKER consulted. Neuro checks Cardiac monitoring. Consulted Dr. Gayle for inpatient rehab. Will defer rest of medical management to primary team. For DVT prophylaxis: On subq heparin 5000U every 8 hours. The plan is discussed with patient. Time with Patient: Less than 30
--- NOTE | 2022-09-02 14:50 | P.GSCN ---
History of Present Illness Consult date: 09/02/22 Reason for Consult: Carotid stenosis Requesting physician: Emilio Bullock History of present illness: This is a pleasant 81-year-old male who presented to the emergency department with complaints of right-sided weakness status post 2 falls. Patient was seen earlier in the week on 08/30/2022 for a fall which he states was from right- sided weakness. He was sent home at that time patient then returned yesterday with same complaints of fall due to right-sided weakness. Neurology was consulted and did further workup with a CT angiogram of the head and neck which reported severe just over 80% proximal right ICA stenosis. Mild 40% proximal left ICA stenosis. Vascular surgery was consulted for the above. He is currently examined lying in bed, with difficulty with his speech. He still has right-sided weakness. Nursing reported he is able to swallow some pills at this time. No complaints of any other focal deficits. Imaging CT angiogram head and neck: Neck reports severe, just over 80% proximal right ICA stenosis. Mild 40% proximal left ICA stenosis. Head reports moderate ventriculomegaly redemonstrated. This may be neck supple vacuo hydrocephalus from central cerebral atrophy. Correlate to exclude possibility of NPH. Moderate arthrosclerotic narrowing of the supraclinoid left ICA. Focal moderate to severe stenosis at the P1/P2 junction of the right SHUTTLECOCK ASSEMBLER. No large vessel intracranial arterial occlusion or aneurysmal change is seen. Brain MRI reports confirmation of evolving acute infarct posterior left frontal lobe at level of [place] Roddey Arti extending inferiorly and laterally to invo lve portion of the posterior limb internal capsule and minimal portion of the posterior left basal ganglia. Background mild to moderate diffuse cerebral atrophy and moderate to severe chronic small vessel ischemic change redemonstrated. Brain CT without contrast report cerebral atrophy and chronic small vessel ischemia. No acute intracranial abnormality. No change compared to recent exam. Review of Systems A 14 point review systems was completed all pertinent positives and negatives as stated in the HPI. 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 [place] IN [place]-HAS HEARING AIDES BUT DOESN'T WEAR THEM. ENLARGED PROSTATE, BILAT CATARACTS, HYPOGLYCEMIA, HITAL HERNIA History of Any Multi-Drug Resistant Organisms: None Reported Additional Past Surgical History / Comment(s): HX BUNIONECTOMY, COLONOSCOPY Past Anesthesia/Blood Transfusion Reactions: Motion Sickness Additional Past Anesthesia/Blood Transfusion Reaction / Comm: HX MENIERE'S DISEASE Past Psychological History: No Psychological Hx Reported Smoking Status: Never smoker Past Alcohol Use History: Occasional Past Drug Use History: None Reported Medications and Allergies Home Medications Medication Instructions Recorded Confirmed Type Aspirin 325 mg PO DAILY 03/05/14 09/01/22 History Dipyridamole 50 mg PO QID 03/05/14 09/01/22 History Omeprazole [PriLOSEC] 20 mg PO DAILY 03/05/14 09/01/22 History amLODIPine [Norvasc] 10 mg PO DAILY 03/05/14 09/01/22 History hydroCHLOROthiazide [Hydrodiuril] 50 mg PO DAILY 03/05/14 09/01/22 History Acyclovir 400 mg PO BID 01/01/21 09/01/22 History Benazepril HCl 40 mg PO DAILY 01/01/21 09/01/22 History Bimatoprost [Lumigan 0.01% Ophth 1 drop BOTH EYES HS 01/01/21 09/01/22 History Soln] Dicyclomine [Bentyl] 10 mg PO DAILY 01/01/21 09/01/22 History Finasteride [Proscar] 5 mg PO DAILY 01/01/21 09/01/22 History allopurinoL [Zyloprim] 100 mg PO HS 01/01/21 09/01/22 History Potassium Chloride ER [K-Dur 20] 20 meq PO BID 01/15/21 09/01/22 History Vit C/E/Zn/Coppr/Lutein/Zeaxan 1 cap PO BID 01/15/21 09/01/22 History [Preservision Areds 2 Softgel] rOPINIRole HCL [Requip] 0.25 mg PO HS 01/15/21 09/01/22 History Carbidopa-Levodopa 25-100 mg 1 tab PO TID 09/01/22 09/01/22 History [Sinemet 25-100 mg] Donepezil [Aricept] 10 mg PO HS 09/01/22 09/01/22 History sitaGLIPtin [Januvia] 100 mg PO DAILY 09/01/22 09/01/22 History tadalafiL 5 mg PO DAILY 09/01/22 09/01/22 History Allergies Allergy/AdvReac Type Severity Reaction Status Date / Time clopidogrel bisulfate Allergy Itching Verified 08/30/22 06:58 [From Plavix] shellfish derived [Shellfish] Allergy Anaphylaxis Verified 08/30/22 06:58 venom-honey bee Allergy Swelling Verified 08/30/22 06:58 [bee venom (honey bee)] Surgical - Exam Vital Signs Temp Pulse Resp BP Pulse Ox 98.1 F 77 18 152/83 96 09/01/22 00:08 09/01/22 00:08 09/01/22 00:08 09/01/22 00:08 09/01/22 00:08 General appearance: The patient is alert, appears in no acute distress. HET: Head is normocephalic and atraumatic. Pupils are equal and reactive. Neck: Supple without lymphadenopathy. Trachea midline. Heart: Regular. Lungs: Equal expansion, normal respiratory effort. Abdomen: Soft, nontender, nondistended. Extremities: Normal skin color and turgor. Neurological: Patient with right facial droop, right-sided weakness and dysarthria. Results - Labs 09/02/22 07:22 09/02/22 07:22 Abnormal Lab Results - Last 24 Hours (Table) 09/01/22 09/01/22 09/02/22 Range/Units 00:38 20:20 06:29 WBC (3.8-10.6) k/uL Neutrophils # (1.3-7.7) k/uL Potassium (3.5-5.1) mmol/L Glucose (74-99) mg/dL POC Glucose (mg/dL) 122 H 130 H (70-110) mg/dL HDL Cholesterol 37.10 L (40.00-60.00) mg/dL 09/02/22 09/02/22 09/02/22 Range/Units 07:22 07:22 11:31 WBC 11.1 H (3.8-10.6) k/uL Neutrophils # 8.9 H (1.3-7.7) k/uL Potassium 3.3 L (3.5-5.1) mmol/L Glucose 129 H (74-99) mg/dL POC Glucose (mg/dL) 152 H (70-110) mg/dL HDL Cholesterol (40.00-60.00) mg/dL Diabetes panel 09/01/22 09/01/22 09/02/22 Range/Units 00:38 00:38 07:22 Sodium 142 (137-145) mmol/L Potassium 3.3 L (3.5-5.1) mmol/L Chloride 105 (98-107) mmol/L Carbon Dioxide 27 (22-30) mmol/L BUN 9 (9-20) mg/dL Creatinine 0.77 (0.66-1.25) mg/dL Glucose 129 H (74-99) mg/dL Hemoglobin A1c 5.5 (0.0-6.0) % Calcium 9.6 (8.4-10.2) mg/dL AST 23 (17-59) U/L ALT 17 (4-49) U/L Alkaline Phosphatase 78 (38-126) U/L Total Protein 7.2 (6.3-8.2) g/dL Albumin 4.3 (3.5-5.0) g/dL Triglycerides 106.00 (0.00-149.00) mg/dL HDL Cholesterol 37.10 L (40.00-60.00) mg/dL Thyroid panel 09/01/22 Range/Units 00:38 TSH 1.640 (0.350-5.500) uIU/mL Calcium panel 09/02/22 Range/Units 07:22 Calcium 9.6 (8.4-10.2) mg/dL Albumin 4.3 (3.5-5.0) g/dL Pituitary panel 09/01/22 09/02/22 Range/Units 00:38 07:22 Sodium 142 (137-145) mmol/L Potassium 3.3 L (3.5-5.1) mmol/L Chloride 105 (98-107) mmol/L Carbon Dioxide 27 (22-30) mmol/L BUN 9 (9-20) mg/dL Creatinine 0.77 (0.66-1.25) mg/dL Glucose 129 H (74-99) mg/dL Calcium 9.6 (8.4-10.2) mg/dL TSH 1.640 (0.350-5.500) uIU/mL Adrenal panel 09/02/22 Range/Units 07:22 Sodium 142 (137-145) mmol/L Potassium 3.3 L (3.5-5.1) mmol/L Chloride 105 (98-107) mmol/L Carbon Dioxide 27 (22-30) mmol/L BUN 9 (9-20) mg/dL Creatinine 0.77 (0.66-1.25) mg/dL Glucose 129 H (74-99) mg/dL Calcium 9.6 (8.4-10.2) mg/dL Total Bilirubin 1.2 (0.2-1.3) mg/dL AST 23 (17-59) U/L ALT 17 (4-49) U/L Alkaline Phosphatase 78 (38-126) U/L Total Protein 7.2 (6.3-8.2) g/dL Albumin 4.3 (3.5-5.0) g/dL Assessment and Plan Assessment: 1. Right-sided weakness, dysarthria 2. Fall 3. Severe right ICA stenosis over 80% per CT angiogram, 50-69% stenosis right ICA per carotid duplex. Less than 50% stenosis left carotid bifurcation 4. Evolving acute infarct posterior left frontal lobe at level of [place] Roddey Arti extending inferiorly and laterally to involve portion of posterior limb internal capsule and minimal portion of posterior left basal ganglia per MRI 5. History of TIA 6. Parkinson's disease 7. Hypertension Plan: 1. Carotid duplex ordered 2. Continue with workup and recommendations from neurology 3. Continue with PT/OT/ST 4. Agree with aspirin, Plavix and a tortuous statin 80 mg at at bedtime 5. Recommend outpatient follow-up for asymptomatic right ICA stenosis. No recommended intervention at this time for left ICA stenosis Thank you for this consultation, we will sign off at this time. The impression and plan of care has been dictated as directed. Dr. Scott I performed a history and examination of this patient, discussed the same with the dictator. I agree with the dictator's note ,documented as a scribe. Any additional findings or plans will be noted.
[2022-09-02] MEDS: POTASSIUM CHLORIDE ER 20 MEQ TAB.ER PO SCH ×2 (15:29→17:22)
[2022-09-02 16:48] LABS: Glucose,Whole Blood 127 mg/dL (70-110)
[2022-09-02 20:11] LABS: Glucose,Whole Blood 116 mg/dL (70-110)
[2022-09-02] MEDS ORDERED: ATORVASTATIN 80 MG TAB PO SCH (21:00)
[2022-09-02] MEDS: allopurinoL 100 MG TAB PO SCH (21:46)
[2022-09-02] MEDS: DONEPEZIL 10 MG TAB PO SCH (21:46)
[2022-09-02] MEDS: TICAGRELOR 90 MG TAB PO SCH (21:46)
[2022-09-02] MEDS: LATANOPROST 0.005% OPHTH DROPS 2.5 ML BTL BOTH EYES SCH (21:47)
[2022-09-02 23:18] VITALS: RESP 18
--- NOTE | 2022-09-03 05:29 | P.CONS ---
History of Present Illness - Chief Complaint Gait disturbance, right hemiparesthesias - History of Present Illness I had the opportunity to see patient for inpatient rehab consultation. Patient admitted to Dr. Langley September 01 weakness, speech disturbance and noted right- sided weakness. Seen by neurology Dr. Emilio Bullock for the stroke. Initial head CT demonstrates atrophy and chronic change only. Angiogram CT shows brain stimulator and right posterior cerebellar infarct. Brain MRI demonstrated infa rct left frontal, [place] radiata and posterior internal capsule/basal ganglia. Carotid Doppler done. PT and OT prescribed. Speech therapy assessed for dysarthria, is able to follow two-step commands. Assess for swallow, regular and thin liquids. Previous functional history as elicited from patient: 81-year-old right-handed white male who is lives at [facility] at work cooking and laundry are provided. Describes independent with standing shower and gait with [address] Harmon. Denies tobacco or alcohol. Review of Systems Review of systems: ENT: Denies sneezes or discharge. Eyes: Denies discharge or photophobia. Cardiac: Denies chest pain or palpitation. Pulmonary: Denies cough or shortness of breath. Gastrointestinal: Denies nausea, emesis, constipation, diarrhea. Genitourinary: Denies discharge or frequency. Musculoskeletal: Denies muscle or bone aches. Neurologic: Right-sided weakness and some dysarthria. Endocrine: Denies shakes or sweats. Oncology: Denies cancers. Dermatologic: Denies rash, itching, pruritus. ALLERGY/immunology: Denies sneezes, rashes. 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 [place]-HAS HEARING AIDES BUT DOESN'T WEAR THEM. ENLARGED PROSTATE, BILAT CATARACTS, HYPOGLYCEMIA, HITAL HERNIA History of Any Multi-Drug Resistant Organisms: None Reported Additional Past Surgical History / Comment(s): HX BUNIONECTOMY, COLONOSCOPY Past Anesthesia/Blood Transfusion Reactions: Motion Sickness Additional Past Anesthesia/Blood Transfusion Reaction / Comm: HX MENIERE'S DISEASE Past Psychological History: No Psychological Hx Reported Smoking Status: Never smoker Past Alcohol Use History: Occasional Past Drug Use History: None Reported Medications and Allergies Home Medications Medication Instructions Recorded Confirmed Type Aspirin 325 mg PO DAILY 03/05/14 09/01/22 History Dipyridamole 50 mg PO QID 03/05/14 09/01/22 History Omeprazole [PriLOSEC] 20 mg PO DAILY 03/05/14 09/01/22 History amLODIPine [Norvasc] 10 mg PO DAILY 03/05/14 09/01/22 History hydroCHLOROthiazide [Hydrodiuril] 50 mg PO DAILY 03/05/14 09/01/22 History Acyclovir 400 mg PO BID 01/01/21 09/01/22 History Benazepril HCl 40 mg PO DAILY 01/01/21 09/01/22 History Bimatoprost [Lumigan 0.01% Ophth 1 drop BOTH EYES HS 01/01/21 09/01/22 History Soln] Dicyclomine [Bentyl] 10 mg PO DAILY 01/01/21 09/01/22 History Finasteride [Proscar] 5 mg PO DAILY 01/01/21 09/01/22 History allopurinoL [Zyloprim] 100 mg PO HS 01/01/21 09/01/22 History Potassium Chloride ER [K-Dur 20] 20 meq PO BID 01/15/21 09/01/22 History Vit C/E/Zn/Coppr/Lutein/Zeaxan 1 cap PO BID 01/15/21 09/01/22 History [Preservision Areds 2 Softgel] rOPINIRole HCL [Requip] 0.25 mg PO HS 01/15/21 09/01/22 History Carbidopa-Levodopa 25-100 mg 1 tab PO TID 09/01/22 09/01/22 History [Sinemet 25-100 mg] Donepezil [Aricept] 10 mg PO HS 09/01/22 09/01/22 History sitaGLIPtin [Januvia] 100 mg PO DAILY 09/01/22 09/01/22 History tadalafiL 5 mg PO DAILY 09/01/22 09/01/22 History Allergies Allergy/AdvReac Type Severity Reaction Status Date / Time clopidogrel bisulfate Allergy Itching Verified 08/30/22 06:58 [From Plavix] shellfish derived [Shellfish] Allergy Anaphylaxis Verified 08/30/22 06:58 venom-honey bee Allergy Swelling Verified 08/30/22 06:58 [bee venom (honey bee)] Physical Exam Vitals: Vital Signs Temp Pulse Resp BP Pulse Ox 09/03/22 04:00 97.3 F L 71 18 170/82 98 09/03/22 02:00 65 18 09/02/22 23:38 97.9 F 65 18 176/68 96 09/02/22 20:00 98.3 F 81 18 165/82 95 09/02/22 15:24 98.2 F 78 19 163/80 95 09/02/22 13:05 81 19 09/02/22 12:28 97.6 F 81 19 167/78 95 09/02/22 08:30 75 19 09/02/22 08:29 98.4 F 75 19 175/88 94 L Intake and Output 09/02/22 09/02/22 09/03/22 14:59 22:59 06:59 Intake Total 374 100 Output Total 375 Balance 374 -275 Intake: IV 20 Invasive Line 2 20 Oral 354 100 Output: Urine 375 Other: Voiding Method External Catheter External Catheter External Catheter # Voids 1 Skin: Atrophic, intact. General: Medium build and comfortable appearance. Head: Normocephalic, atraumatic. Eyes: Symmetric. Pupils equal round. Ears: Symmetric. Hearing within normal limits. Mouth: Clear. Neck: Supple. Carotid without bruit. Cardiac: Regular rate and rhythm. Lungs: Clear anteriorly and posteriorly. Abdomen: Soft active nontender. Extremities: Normal tone. Neurological: Mental status: Alert, cooperative, pleasant. Dysarthric. Cranial nerves: Symmetric facial tone and trapezius. Motor: Normal strength and isolation left side. Right arm and poor flexion synergy and right leg in extension synergy about antigravity. Sensation: Intact left side. Depressed right side. DTRs: Symmetric and equal throughout. Mobility: Did not attempt to sit or stand this early a.m. Results CBC & Chem 7: 09/02/22 07:22 09/02/22 07:22 Labs: Abnormal Lab Results - Last 24 Hours (Table) 09/02/22 09/02/22 09/02/22 Range/Units 06:29 07:22 07:22 WBC 11.1 H (3.8-10.6) k/uL Neutrophils # 8.9 H (1.3-7.7) k/uL Potassium 3.3 L (3.5-5.1) mmol/L Glucose 129 H (74-99) mg/dL POC Glucose (mg/dL) 130 H (70-110) mg/dL 09/02/22 09/02/22 09/02/22 Range/Units 11:31 16:46 20:10 WBC (3.8-10.6) k/uL Neutrophils # (1.3-7.7) k/uL Potassium (3.5-5.1) mmol/L Glucose (74-99) mg/dL POC Glucose (mg/dL) 152 H 127 H 116 H (70-110) mg/dL Assessment and Plan (1) CVA (cerebral vascular accident) Current Visit: Yes Status: Acute Code(s): I63.9 - CEREBRAL INFARCTION, UNSPECIFIED SNOMED Code(s): 815016680 Plan: Comments and plan: Diagnoses gait disturbance related to stroke result in right hemiparesthesias and dysarthria. Safety concerns noted. At this time PT and OT prescribed. We'll required her therapy notes in order to present to insurance for possible inpatient rehab admission. Note patient is unaware of any specific person for support upon discharge.
--- NOTE | 2022-09-03 05:43 | P.PN ---
Subjective Progress Note Date: 09/02/22 Patient is a 81-year-old male with a known history of CVA, Mnire's disease, hearing disorder/deafness, hypertension, BPH and early onset dementia was sent to ER from [facility] due to new onset slurred speech and generalized weakness. Patient apparently fell 2 days ago. Patient cannot provide any history. Patient is also having difficulty swallowing and is currently on pured diet patient was seen by PATIENT EDUCATOR consult. History was taken from medical records. Patient follows with neurology, as an outpatient for Parkinson disease and early onset dementia. EKG showed sinus rhythm CT head showed cerebral atrophy and chronic small vessel ischemia. No acute intracranial Dam[place]. No change from recent exam. Laboratory data showed WBC 9.2 hemoglobin 14.7 and platelets 162 Sodium 138 potassium 3.4 chloride 105 bicarb is 28 BUN 15 and creatinine 0.78 and blood sugar is 125 Liver enzymes are not elevated and TSH level is 1.64. 09/02/2022 Patient is seen and evaluated in follow-up today with neurology following closely. Patient continues to have right side deficits along with right facial droop and underwent MRI of the brain today which confirms evolving acute infarct posterior left frontal lobe at the level of [place] radiata extending inferiorly and laterally to involve portion of the posterior limb internal capsule and minimal portion of the posterior left basal ganglia. Patient also with some stenosis and vascular surgery consulted. Afebrile with no shortness of breath or chest pain noted. Patient also underwent 2-D echo showing mildly increased septal wall thickness with an EF estimated at 55% with some mild mitral regurgitation and tricuspid regurgitation present. Patient is currently continued on aspirin along with high-dose statin and being started on Brilinta. Potassium slightly low today at 3.3 and will replace per protocol. Per nursing staff patient is tolerating pills and recommend continue with aspiration precautions. Dr. Gayle from [facility] inpatient rehab consulted for possible inpatient rehab with case management following. Review of systems: unable to obtain due to patient's mental status Active Medications Allopurinol (Allopurinol 100 Mg Tab) 100 mg PO [facility] Last Admin: 09/01/22 20:21 Dose: 100 mg Amlodipine Besylate (Amlodipine 10 Mg Tab) 10 mg PO DAILY [facility] Last Admin: 09/02/22 08:33 Dose: 10 mg Aspirin (Aspirin 81 Mg) 81 mg PO DAILY [facility] Atorvastatin Calcium (Atorvastatin 80 Mg Tab) 80 mg PO HS VIANEY Carbidopa/Levodopa (Carbidopa-Levodopa 25-100 Mg 1 Each Tab) 1 each PO TID [facility] Last Admin: 09/02/22 15:29 Dose: 1 each Dextrose/Water (Dextrose 50% Syringe 50 Ml) 25 ml IVP PER PROTOCOL PRN; Protocol PRN Reason: Hypoglycemia Dextrose/Water (Dextrose 50% Syringe 50 Ml) 50 ml IVP PER PROTOCOL PRN; Protocol PRN Reason: Hypoglycemia Dicyclomine HCl (Dicyclomine 10 Mg Cap) 10 mg PO DAILY [facility] Last Admin: 09/02/22 08:34 Dose: 10 mg Donepezil HCl (Donepezil 10 Mg Tab) 10 mg PO HS [facility] Last Admin: 09/01/22 20:21 Dose: 10 mg Finasteride (Finasteride 5 Mg Tab) 5 mg PO DAILY [facility] Last Admin: 09/02/22 08:34 Dose: 5 mg Heparin Sodium (Porcine) (Heparin Sodium,Porcine/Pf 5,000 Unit/0.5 Ml Syringe) 5,000 unit SQ Q8HR [facility] Last Admin: 09/02/22 15:29 Dose: 5,000 unit Hydrochlorothiazide (Hydrochlorothiazide 50 Mg Tab) 50 mg PO DAILY [facility] Last Admin: 09/02/22 08:33 Dose: 50 mg Sodium Chloride (Saline 0.9%) 1,000 mls @ 75 mls/hr IV .[id number] [facility] Last Admin: 09/02/22 08:34 Dose: 75 mls/hr Insulin Aspart (Insulin Aspart (Novolog) 100 Unit/Ml Vial) 0 unit SQ ACHS [facility]; Protocol Last Admin: 09/02/22 12:30 Dose: 2 unit Latanoprost (Latanoprost 0.005% Ophth Drops 2.5 Ml Btl) 1 drops BOTH EYES HS [facility] Last Admin: 09/01/22 20:21 Dose: 1 drops Lisinopril (Lisinopril 20 Mg Tab) 40 mg PO DAILY [facility] Last Admin: 09/02/22 08:34 Dose: 40 mg Miscellaneous Information (Potassium Replacement Protocol 1 Each Misc) 1 each MISCELLANE DAILY PRN; Protocol PRN Reason: Per Protocol Morphine Sulfate (Morphine Sulfate 4 Mg/Ml Syringe) 4 mg IV Q4HR PRN PRN Reason: Severe Pain (Scale 7 to 10) Last Admin: 09/01/22 04:20 Dose: 4 mg Multivitamins/Minerals (Vit A,C & E-Jbelmp-Betzxeiq 1 Each Tab) 1 each PO BID [facility] Last Admin: 09/02/22 08:33 Dose: 1 each Naloxone HCl (Naloxone 0.4 Mg/Ml 1 Ml Vial) 0.2 mg IV Q2M PRN PRN Reason: Opioid Reversal Non-Formulary Medication (Tadalafil [Tadalafil]) 5 mg PO DAILY [facility] Last Admin: 09/02/22 08:17 Dose: Not Given Ondansetron HCl (Ondansetron 4 Mg/2 Ml Vial) 4 mg IVP Q8HR PRN PRN Reason: Nausea And Vomiting Pantoprazole Sodium (Pantoprazole 40 Mg Tablet) 40 mg PO DAILY [facility] Last Admin: 09/02/22 08:34 Dose: 40 mg Potassium Chloride (Potassium Chloride Er 20 Meq Tab.Er) 20 meq PO Q1HR [facility]; Protocol Stop: 09/02/22 16:01 Last Admin: 09/02/22 15:29 Dose: 20 meq Ropinirole HCl (Ropinirole Hcl 0.25 Mg Tab) 0.25 mg PO HS [facility] Last Admin: 09/01/22 20:21 Dose: 0.25 mg Ticagrelor (Ticagrelor 90 Mg Tab) 90 mg PO BID [facility] PHYSICAL EXAMINATION: Patient is lying in the bed comfortably, no acute distress, awake alert but not oriented... HEENT: Normocephalic. Neck is supple. Pupils reactive. Nostrils clear. Oral cavity is moist. Neck reveals no JVD, carotid bruits, or thyromegaly. CHEST EXAMINATION: Trachea is central. Symmetrical expansion. Lung david clear to auscultation and percussion. CARDIAC: Normal S1, S2 with no gallops. No murmurs ABDOMEN: Soft. Bowel sounds present. Nontender. No organomegaly. No abdominal bruits. Extremities: reveal no edema. No clubbing or cyanosis Neurologically awake, alert, oriented x 0. Right-sided weakness and facial droop. Skin: No rash or skin lesions. Psychiatric: Could not be assessed. Musculoskeletal: No joint swelling or deformity. Assessment: Slurred speech and right-sided weakness due to acute CVA. Evolving acute infarct posterior left frontal lobe at the level of [place] radiata extending inferiorly and laterally to involve portion of the posterior limb internal capsule and minimal portion of the posterior left basal ganglia Difficulty swallowing Early onset dementia Parkinson's disease Prior history of CVA in 1987 Mnire's disease Hypertension Hearing disorder/deafness GERD Diabetes type 2 DVT prophylaxis Full code Plan: Patient will be continued on telemetry monitoring and continued neurochecks. Neuro following and recommend to continue on current medications. Patient was seen by PATIENT EDUCATOR and was started on pured diet. Recommend close supervision and possible aspiration precautions MRI of the brain is showing a confirmation of evolving acute infarct posterior left frontal lobe at the level of [place] radiata extending inferiorly and laterally to involve portion of the posterior limb internal capsule and minimal portion of the posterior left basal ganglia. Carotid Doppler showing 50-69% stenosis of the right carotid bifurcation by peak systolic velocity and less than 50% stenosis of the left carotid bifurcation. Vascular surgery consulted with no immediate interventions and recommend follow up outpatient. Consult placed to BERRY Gayle for possible rehab at [facility]. Case management following. Potassium slightly low and recommend replacing per protocol and follow up labs Due to multiple complex medical issues, prognosis is guarded. The impression and plan of care has been dictated by Irena Harman, Nurse Practitioner as directed. Dr. Kandice MD I have performed a history and examination and MDM of this patient, discussed the same with the dictator, and agree with the dictator's assessment and plan as written ,documented as a scribe. Based on total visit time, I have performed more than 50% of the visit. Objective - Vital Signs Vital signs: Vital Signs Temp 98.4 F 09/02/22 08:29 Pulse 75 09/02/22 08:30 Resp 19 09/02/22 08:30 BP 175/88 09/02/22 08:29 Pulse Ox 94 L 09/02/22 08:29 FiO2 Intake & Output 09/01/22 09/02/22 09/02/22 18:59 06:59 18:59 Intake Total 128 Output Total 900 Balance -900 128 Weight 81.647 kg Intake: IV 10 Invasive Line 2 10 Oral 118 Output: Urine 900 Other: Voiding Method External Catheter External Catheter External Catheter # Voids 1 - Labs CBC & Chem 7: 09/02/22 07:22 09/02/22 07:22 Labs: Abnormal Lab Results - Last 24 Hours (Table) 12/03/1809/01/22 09/02/22 Range/Units 00:38 20:20 06:29 WBC (3.8-10.6) k/uL Neutrophils # (1.3-7.7) k/uL Potassium (3.5-5.1) mmol/L Glucose (74-99) mg/dL POC Glucose (mg/dL) 122 H 130 H (70-110) mg/dL HDL Cholesterol 37.10 L (40.00-60.00) mg/dL 09/02/22 09/02/22 Range/Units 07:22 07:22 WBC 11.1 H (3.8-10.6) k/uL Neutrophils # 8.9 H (1.3-7.7) k/uL Potassium 3.3 L (3.5-5.1) mmol/L Glucose 129 H (74-99) mg/dL POC Glucose (mg/dL) (70-110) mg/dL HDL Cholesterol (40.00-60.00) mg/dL
[2022-09-03 06:29] LABS: Glucose,Whole Blood 123 mg/dL (70-110)
[2022-09-03] MEDS: INSULIN ASPART (NovoLOG) 100 UNIT/ML VIAL SQ SCH ×3 (06:53→17:12)
[2022-09-03] MEDS: SODIUM CHLORIDE 0.9% 1,000 ML IV SCH ×2 (06:53→17:32)
[2022-09-03 08:31] LABS: Basophils # (A) 0.1 k/uL (0-0.2); Basophils % (A) 1 %; Eosinophils # (A) 0.1 k/uL (0-0.7); Eosinophils % (A) 2 %; HCT 46.6 % (39.0-53.0); HGB 16.4 gm/dL (13.0-17.5); Lymphocytes % (A) 11 %; MCH 33.1 pg (25.0-35.0); MCHC 35.3 g/dL (31.0-37.0); MCV 93.8 fL (80.0-100.0); Mean Platelet Volume 8.4; Monocytes # (A) 0.7 k/uL (0-1.0); Monocytes % (A) 8 %; Neutrophils # (A) 6.9 k/uL (1.3-7.7); Neutrophils % (A) 78 %; Platelet Count 168 k/uL (150-450); RBC 4.96 m/uL (4.30-5.90); RDW 12.6 % (11.5-15.5); WBC 8.9 k/uL (3.8-10.6)
[2022-09-03] MEDS: CARBIDOPA-LEVODOPA 25-100 MG 1 EACH TAB PO SCH ×2 (08:33→17:12)
[2022-09-03] MEDS: PANTOPRAZOLE 40 MG TABLET PO SCH (08:34)
[2022-09-03] MEDS: VIT A,C & E-LUTEIN-MINERALS 1 EACH TAB PO SCH (08:34)
[2022-09-03] MEDS: TICAGRELOR 90 MG TAB PO SCH (08:34)
[2022-09-03] MEDS: lisinopriL 20 MG TAB PO SCH (08:34)
[2022-09-03] MEDS: DICYCLOMINE 10 MG CAP PO SCH (08:34)
[2022-09-03] MEDS: FINASTERIDE 5 MG TAB PO SCH (08:34)
[2022-09-03] MEDS: amLODIPine 10 MG TAB PO SCH (08:34)
[2022-09-03] MEDS: HEPARIN SODIUM,PORCINE/PF 5,000 UNIT/0.5 ML SYRINGE SQ SCH ×2 (08:34→17:12)
[2022-09-03 08:59] LABS: African American GFR (CKD) >90 (>60 ml/min/1.73 sqM); Anion Gap 11 mmol/L; Blood Urea Nitrogen 12 mg/dL (9-20); Calcium 9.7 mg/dL (8.4-10.2); Carbon Dioxide 23 mmol/L (22-30); Chloride 107 mmol/L (98-107); Glucose 155 mg/dL (74-99); Non-African American GFR(CKD) 85 (>60 ml/min/1.73 sqM); Potassium 3.2 mmol/L (3.5-5.1); Sodium 141 mmol/L (137-145)
[2022-09-03] MEDS ORDERED: ASPIRIN 81 MG PO SCH (09:00)
[2022-09-03] MEDS: NON FORMULARY DRUG (Tadalafil [Tadalafil] 5 MG Tablet) PO SCH (09:54)
[2022-09-03 11:51] LABS: Glucose,Whole Blood 134 mg/dL (70-110)
[2022-09-03 12:26] VITALS: TEMP 98
[2022-09-03] MEDS: POTASSIUM CHLORIDE 10 MEQ in WATER FOR INJECTION 1 100ML.BAG IVPB SCH ×3 (14:26→18:02)
--- NOTE | 2022-09-03 15:31 | P.DS ---
Providers Date of admission: 09/01/22 12:36 Expected date of discharge: 09/03/22 Attending physician: Taisha Langley Consults: 09/01/22 01:38 Consult Physician Routine Consulting Provider: Emilio Bullock Consult Reason/Comments: weak,tia? Do you want consulting provider notified?: Yes 09/02/22 10:05 Consult Physician Urgent Consulting Provider: Jonathan Harden Consult Reason/Comments: carotid stenosis Do you want consulting provider notified?: Yes 09/02/22 14:28 Consult Physician Routine Consulting Provider: Brandyn Gayle Consult Reason/Comments: inpatient rehab. stroke Do you want consulting provider notified?: Yes Primary care physician: Fidel Harmon [facility] Course: Final diagnosis Slurred speech and right-sided weakness due to acute CVA. Evolving acute infarct posterior left frontal lobe at the level of [place] radiata extending inferiorly and laterally to involve portion of the posterior limb internal capsule and minimal portion of the posterior left basal ganglia Difficulty swallowing possibly secondary to the stroke Early onset dementia Parkinson's disease Prior history of CVA in 1987 Mnire's disease Hypertension Hearing disorder/deafness GERD Diabetes type 2 DVT prophylaxis Full code Discharge disposition Patient is being discharged in a stable condition with guarded prognosis to [facility]. Patient will follow-up with Dr. Florian in the outpatient setting upon discharge. Patient is to follow up with neurology Dr. Hermosillo as scheduled. Patient will also need follow-up with vascular surgery in the outpatient setting. Total time taken is greater than 35 minutes. Hospital course This is a 81-year-old male who was recently admitted with slurred speech new- onset generalized weakness and having falls 2 days prior being closely monitored. Patient does have a past medical history of CVA with Mnire's disease recently early onset dementia and was living at [facility] independent in activities other than medications being administered. Patient with significant weakness and continued right side deficits with physical therapy evaluation recommending rehab. Initially attempted [facility] inpatient rehab although physician felt patient would better benefit from subacute rehab and patient is willing to go to [facility]. [facility] has accepted and can accommodate today. Consultations have cleared the patient for discharge recommending outpatient neurology follow-up. Patient does follow with Dr. Hermosillo in the outpatient setting and sons at the bedside verbalized understanding he would need follow-up. Patient continued on aspirin and being started on Brilinta. Currently no reports of chest pain, shortness of breath, or palpitations. Patient is afebrile. No reports of nausea or vomiting and patient is tolerating diet. Patient will be going to [facility] today. Guarded prognosis. Physical exam: Gen: This is a 81-year-old male awake, alert and oriented, somewhat nonverbal, well-developed, well-nourished HEENT: Head is atraumatic, normocephalic. Pupils equal, round. Sclerae is anicteric. NECK: Supple. No JVD. No lymphadenopathy. No thyromegaly. LUNGS: Clear to auscultation. No wheezes or rhonchi. No intercostal retractions. HEART: S1, S2 are muffled ABDOMEN: Soft. Bowel sounds are present. No masses. No tenderness. EXTREMITIES: No pedal edema. No calf tenderness. NEUROLOGICAL: Patient is awake, alert and oriented x3. Right side deficits noted with weakness and facial droop Please refer to medication reconciliation sheet for a list of medications. The impression and plan of care has been dictated by Irena Harman, Nurse Practitioner as directed. Dr. Kandice MD I have performed a history and examination and MDM of this patient, discussed the same with the dictator, and agree with the dictator's assessment and plan as written ,documented as a scribe. Based on total visit time, I have performed more than 50% of the visit. Patient Condition at Discharge: Good Plan - Discharge Summary Discharge Rx Participant: No New Discharge Prescriptions: New Aspirin 81 mg PO DAILY tab Atorvastatin [Lipitor] 80 mg PO HS tab Ticagrelor [Brilinta] 90 mg PO BID tab Continue amLODIPine [Norvasc] 10 mg PO DAILY Omeprazole [PriLOSEC] 20 mg PO DAILY hydroCHLOROthiazide [Hydrodiuril] 50 mg PO DAILY Dipyridamole 50 mg PO QID Acyclovir 400 mg PO BID allopurinoL [Zyloprim] 100 mg PO HS Benazepril HCl 40 mg PO DAILY Bimatoprost [Lumigan 0.01% Ophth Soln] 1 drop BOTH EYES HS Finasteride [Proscar] 5 mg PO DAILY Potassium Chloride ER [K-Dur 20] 20 meq PO BID rOPINIRole HCL [Requip] 0.25 mg PO HS Vit C/E/Zn/Coppr/Lutein/Zeaxan [Preservision Areds 2 Softgel] 1 cap PO BID sitaGLIPtin [Januvia] 100 mg PO DAILY tadalafiL 5 mg PO DAILY Dicyclomine [Bentyl] 10 mg PO DAILY Donepezil [Aricept] 10 mg PO HS Carbidopa-Levodopa 25-100 mg [Sinemet 25-100 mg] 1 tab PO TID Discontinued Aspirin 325 mg PO DAILY Discharge Medication List Dipyridamole 50 mg PO QID 03/05/14 [History] Omeprazole [PriLOSEC] 20 mg PO DAILY 03/05/14 [History] amLODIPine [Norvasc] 10 mg PO DAILY 03/05/14 [History] hydroCHLOROthiazide [Hydrodiuril] 50 mg PO DAILY 03/05/14 [History] Acyclovir 400 mg PO BID 01/01/21 [History] Benazepril HCl 40 mg PO DAILY 01/01/21 [History] Bimatoprost [Lumigan 0.01% Oph Soln] 1 drop BOTH EYES HS 01/01/21 [History] Dicyclomine [Bentyl] 10 mg PO DAILY 01/01/21 [History] Finasteride [Proscar] 5 mg PO DAILY 01/01/21 [History] allopurinoL [Zyloprim] 100 mg PO HS 01/01/21 [History] Potassium Chloride ER [K-Dur 20] 20 meq PO BID 01/15/21 [History] Vit C/E/Zn/Coppr/Lutein/Zeaxan [Preservision Areds 2 Softgel] 1 cap PO BID 01/15/21 [History] rOPINIRole HCL [Requip] 0.25 mg PO HS 01/15/21 [History] Carbidopa-Levodopa 25-100 mg [Sinemet 25-100 mg] 1 tab PO TID 09/01/22 [History] Donepezil [Aricept] 10 mg PO HS 09/01/22 [History] sitaGLIPtin [Januvia] 100 mg PO DAILY 09/01/22 [History] tadalafiL 5 mg PO DAILY 09/01/22 [History] Aspirin 81 mg PO DAILY tab 09/03/22 [Rx] Atorvastatin [Lipitor] 80 mg PO HS tab 09/03/22 [Rx] Ticagrelor [Brilinta] 90 mg PO BID tab 09/03/22 [Rx] Follow up Appointment(s)/Referral(s): Rebeka Scott DO [STAFF PHYSICIAN] - 2 Weeks Fidel Harmon DO [Primary Care Provider] - 1-2 days Janene Hermosillo MD [Medical Doctor] - 1 Week Ambulatory/Diagnostic Orders: Basic Metabolic Panel [LAB.AMB] Time Frame: 2 Days, Location: None Selected Patient Instructions/Handouts: Weakness (ED) Activity/Diet/Wound Care/Special Instructions: Patient is going to [facility] Activity as tolerated Continue taking medications as prescribed Continue monitoring Accu-Cheks before meals and at bedtime and may use sliding scale as needed NovoLog sliding scale 0-150 equals 0 units 151-200 equals 2 units 201-250 equals 4 units 251-300 equals 6 units 301-350 equals 8 units 351-400 equals 10 units Please notify provider if blood sugar is 400 or above Continue consistent carb heart healthy diet that is dysphagia pureed diet with nectar thickened liquids and one-to-one supervision with aspiration precautions and no straws Recommend strict aspiration precautions with head of the bed elevated 30-45 at all times and supervisions with meals Follow-up with neurologist Dr. Hermosillo this week Recommend repeat labs BMP to monitor electrolytes Discharge Disposition: TRANSFER TO SNF/ECF
--- NOTE | 2022-09-03 15:54 | P.PN ---
Subjective Progress Note Date: 09/03/22 The patient is seen at bedside and feels he is about the same. Per the nurse pending discharge to rehab today. Objective - Vital Signs Vital signs: Vital Signs Temp 98.0 F 09/03/22 12:25 Pulse 78 09/03/22 12:25 Resp 18 09/03/22 12:25 BP 174/80 09/03/22 12:25 Pulse Ox 95 09/03/22 12:25 FiO2 Intake & Output 09/02/22 09/03/22 09/03/22 18:59 06:59 18:59 Intake Total 474 238 Output Total 375 Balance 474 -375 238 Intake: IV 20 Invasive Line 2 20 Oral 454 238 Output: Urine 375 Other: Voiding Method External Catheter External Catheter External Catheter # Voids 1 1 - Exam GENERAL: The patient is lying in bed and is not in acute distress. NEUROLOGICAL: Higher mental function: The patient is awake, alert, oriented to self, place and time. Is following simple commands. No aphasia. No neglect. Cranial nerves: The pupils appeared round, equal. Has moderate amount of right lower facial weakness and has salivia out of right mouth. Has mild dysarthria noted. Otherwise rest is limited. Motor: The strength is hard to assess individual muscles because of cooperation. Has right upper extremity drift and weakness over the right lower but has antigravity on both. Left side appears strong. Normal bulk. Slight decrease tone over the right. Cerebellum: Unable to assess. Sensation: Unable to assess. Reflexes (right/left): 1+ throughout. Plantars are mute bilaterally. Some of the workup during this hospital visit consisted of: HbA1c: 5.5 TSH: 1.64 Lipid panel: TG 106, cholestrol 167, LDL [address] of the head is reported as cerebral atrophy and chronic small vessel ischemia. No acute intracranial abnormality. No change compared to recent exam. I personally reviewed the CT and there is no acute or subacute ischemia. There is no intracranial hemorrhage. CTA head and neck is reported as for the neck: Severe, just over 80% proximal right ICA stenosis. Mild, 40% proximal left ICA stenosis. While head: Moderate ventriculomegaly redemonstrated. This may be ex-vacuo hydrocephalus from central cerebral atrophy. Correlate to exclude the possibility of NPH. Moderate atherosclerotic narrowing supraclinoid left ICA. Focal moderate to severe stenosis at the P1/P2 junction of right REPAIRING CALIBRATOR. No large vessel intracranial arterial occlusion or aneurysmal changes seen. MRI BRain is reported as confirmation of evolving acute infarct posterior left frontal lobe at level of [place] radiata extending inferiorly and laterally to involve portion of the posterior limb internal capsule and minimal portion of the posterior left basal ganglia. Background mild to moderate diffuse cerebral atrophy and moderate to severe chronic small vessel ischemic change redemonstra almita. I personally reviewed MRI and agree with report. Carotid Duplex: There is reported as 50-69% stenosis in the right carotid bifurcation by peak systolic velocity ratio. Less than 50% stenosis of left carotid bifurcation. 2-D echo was reported as left ventricular hypertrophy with preserved systolic function. In the body they reported it is reported as normal left atrial size. - Labs CBC & Chem 7: 09/03/22 07:45 09/03/22 07:45 Labs: Abnormal Lab Results - Last 24 Hours (Table) 09/02/22 09/02/22 09/03/22 Range/Units 16:46 20:10 06:27 Potassium (3.5-5.1) mmol/L Glucose (74-99) mg/dL POC Glucose (mg/dL) 127 H 116 H 123 H (70-110) mg/dL 09/03/22 09/03/22 Range/Units 07:45 11:47 Potassium 3.2 L (3.5-5.1) mmol/L Glucose 155 H (74-99) mg/dL POC Glucose (mg/dL) 134 H (70-110) mg/dL Assessment and Plan Assessment: Acute right sided weakness (facial, upper and lower extremity, dysarthria) due to acute ischemic stroke. MRI Brain: Left [place] radiata extending to posterior limb internal capsule and minimal portion of the posterior left basal ganglia. Stroke appears due to small vessel disease to patient risk factors. Right hemiparesis due ischemic stroke Asymptomatic Severe right ICA stenosis over 80% per CTA while 40% on left. Carotid duplex reports as 50-69% stenosis on right ICA Moderate atherosclerotic narrowing supraclinoid left ICA. Focal moderate to severe stenosis at the P1/P2 junction of right REPAIRING CALIBRATOR per CTA Dysphagia due to acute ischemic stroke Parkinson's disease Early onset dementia (according to his neurologist) Plan: Continue ASA 81mg PO and Started Brilinta 90mg 1 tab bid daily (started both new during this admission. Not plavix since has allergy to Plavix). Recommend dual antiplatelets for 21 days and after 21 days stop Brilinta but continue ASA. Continue Lipitor 80mg qhs for secondary stroke prophylaxis and help stabilize plaque of carotid stenosis. Consulted vascular surgery for carotid stenosis. Moderate atherosclerotic narrowing supraclinoid left ICA. Focal moderate to severe stenosis at the P1/P2 junction of right REPAIRING CALIBRATOR. Will have patient follow-up with interventional neurology team as outpatient. PT, OT and GATE MORTISER OPERATOR consulted. Neuro checks Cardiac monitoring. Consulted Dr. Gayle for inpatient rehab. Will defer rest of medical management to primary team. For DVT prophylaxis: On subq heparin 5000U every 8 hours. Upon discharge, the patient needs to follow-up with neurologist as outpatient within 1-2 weeks. The plan is discussed with patient and his nurse. Time with Patient: Less than 30
[2022-09-03 16:19] VITALS: BP 154/67; PULSE 70
[2022-09-03 16:24] LABS: Glucose,Whole Blood 125 mg/dL (70-110)
== END 2022-09-03 20:04 | DRG 65 ==
LOC: EC 23:58 → 6NMEDSUR 09-01 01:39 → OBSVTOIN 09-01 12:36 → 3SCARD 09-01 14:06
PROVIDERS: ADMIT Hospitalist; ATTEND Hospitalist
DX: I63.549 Cerebral infarction due to unspecified occlusion or stenosis of unspecified cerebellar artery (principal); G81.91 Hemiplegia, unspecified affecting right dominant side; I65.23 Occlusion and stenosis of bilateral carotid arteries; H91.90 Unspecified hearing loss, unspecified ear; H81.09 Meniere's disease, unspecified ear; I08.1 Rheumatic disorders of both mitral and tricuspid valves; E11.9 Type 2 diabetes mellitus without complications; F02.80 Dementia in other diseases classified elsewhere, unspecified severity, without behavioral disturbance, psychotic disturbance, mood disturbance, and anxiety; G20 Parkinson's disease; G93.89 Other specified disorders of brain; I10 Essential (primary) hypertension; K21.9 Gastro-esophageal reflux disease without esophagitis; M54.30 Sciatica, unspecified side; N40.0 Benign prostatic hyperplasia without lower urinary tract symptoms; R13.10 Dysphagia, unspecified; R29.6 Repeated falls; R29.700 NIHSS score 0; R29.810 Facial weakness; Z91.81 History of falling; Z79.82 Long term (current) use of aspirin; Z79.84 Long term (current) use of oral hypoglycemic drugs; Z79.899 Other long term (current) drug therapy; Z86.73 Personal history of transient ischemic attack (TIA), and cerebral infarction without residual deficits; Z88.8 Allergy status to other drugs, medicaments and biological substances; Z91.030 Bee allergy status; Z91.013 Allergy to seafood
CPT/HCPCS: 36415; 70450; 70496; 70498; 70551; 80048; 80053; 80061; 82550; 83036; 83735; 84100; 84443; 84484; 85025; 85610; 85730; 87635; 93005; 93306; 93880; 96361; 96374; 99285

== ENCOUNTER 2023-01-15 21:31 | Inpatient (IN) | payer MEDICARE ==
[2023-01-15] MEDS ORDERED: SODIUM CHLORIDE 0.9% 1,000 ML IV ONE (21:55)
--- NOTE | 2023-01-15 22:41 | XR ---
EXAMINATION TYPE: XR chest 2V DATE OF EXAM: 01/15/2023 10:32 PM COMPARISON: Chest radiographs from 01/15/2021 TECHNIQUE: XR chest 2V Frontal and lateral views of the chest. CLINICAL INDICATION:Male, 82 years old with history of altered mental status; FINDINGS: Lungs/Pleura: There is no evidence of pleural effusion, focal consolidation, or pneumothorax. Pulmonary vascularity: Unremarkable. Heart/mediastinum: Cardiomediastinal silhouette is unremarkable. Musculoskeletal: No acute osseous pathology. IMPRESSION: No acute cardiopulmonary disease/process.
[2023-01-15 22:56] LABS: Lactic Acid, Venous 1.1 mmol/L (0.7-2.0); Partial Thromboplastin Time 24.7 sec (22.0-30.0); Prothrombin Time 10.6 sec (9.0-12.0)
[2023-01-15 22:57] LABS: ALT 11 U/L (4-49); AST 46 U/L (17-59); African American GFR (CKD) >90 (>60 ml/min/1.73 sqM); Albumin 3.4 g/dL (3.5-5.0); Alkaline Phosphatase 40 U/L (38-126); Anion Gap 6 mmol/L; Blood Urea Nitrogen 14 mg/dL (9-20); Calcium 8.3 mg/dL (8.4-10.2); Carbon Dioxide 23 mmol/L (22-30); Chloride 106 mmol/L (98-107); Glucose 126 mg/dL (74-99); Non-African American GFR(CKD) >90 (>60 ml/min/1.73 sqM); Sodium 135 mmol/L (137-145); Total Protein 6.5 g/dL (6.3-8.2)
[2023-01-15 23:02] LABS: Potassium 5.1 mmol/L (3.5-5.1)
[2023-01-15 23:09] LABS: Basophils % (A) 0 %; Eosinophils # (A) 0.2 k/uL (0-0.7); Eosinophils % (A) 2 %; HCT 44.1 % (39.0-53.0); HGB 15.1 gm/dL (13.0-17.5); Lymphocytes # (A) 1.1 k/uL (1.0-4.8); Lymphocytes % (A) 13 %; MCHC 34.4 g/dL (31.0-37.0); MCV 96.1 fL (80.0-100.0); Mean Platelet Volume 8.4; Monocytes # (A) 0.6 k/uL (0-1.0); Monocytes % (A) 7 %; Neutrophils # (A) 6.4 k/uL (1.3-7.7); Neutrophils % (A) 76 %; Platelet Count 181 k/uL (150-450); RBC 4.58 m/uL (4.30-5.90); RDW 12.7 % (11.5-15.5); WBC 8.4 k/uL (3.8-10.6)
--- NOTE | 2023-01-15 23:10 | CT ---
EXAMINATION TYPE: CT brain wo con CT DLP: 1141.4 mGycm, Automated exposure control for dose reduction was used. DATE OF EXAM: 01/15/2023 10:48 PM COMPARISON: 09/01/2022. CLINICAL INDICATION:Male, 82 years old with history of Altered mental status, AMS TECHNIQUE: Brain: Axial CT images of the brain were obtained with coronal and sagittal reformats created and rev iewed. Contrast used: None. Oral contrast used: None. FINDINGS: Brain: Extra-axial spaces: No abnormal extra-axial fluid collections. Ventricular system: Dilatation of ventricular system which may be fractionally larger than 09/01/2022 measuring up to 46 mm in transverse dimension at the level of the lateral ventricles. Cerebral parenchyma: Left basal ganglia/ire[place] radiata lacunar injury low-density area.. Cerebral atr ophy. No acute intraparenchymal hemorrhage or mass effect. The jensen-white junction is well different iated. Cerebellum: Unremarkable. Mass effect: No evidence of midline shift. Intracranial vasculature: unremarkable Soft tissues: Normal. Calvarium/osseous structures: No depressed skull fracture. Paranasal sinuses and mastoid air cells: Mild scattered paranasal sinus disease. Visualized orbits: Orbital contents are intact. IMPRESSION: 1. Low-density left basal ganglia lesion extending into the left ire[place] radiata concerning for age-i ndeterminate CVA. This is new from 09/01/2022. 2. Dilation of the ventricular system which may be fractionally worse from prior. Attention follow-u p MRI.
[2023-01-16 00:24] LABS: Appearance,Urine Bloody (Clear); Color,Urine Dark Red
[2023-01-16 00:32] LABS: RBC,Urine >182 /hpf (0-5); WBC,Urine >182 /hpf (0-5)
[2023-01-16] MEDS ORDERED: NALOXONE 0.4 MG/ML 1 ML VIAL IV PRN (00:39)
[2023-01-16 00:41] LABS: Amphetamine Screen,Urine Not Detected (NotDetected); Barbiturate Screen,Urine Not Detected (NotDetected); Benzodiazepines Screen,Urine Detected (NotDetected); Cocaine Screen,Urine Not Detected (NotDetected); Methadone Screen, Urine Not Detected (NotDetected); Opiate Screen,Urine Not Detected (NotDetected); Oxycodone Screen, Urine Not Detected (NotDetected); Phencyclidine Screen,Urine Not Detected (NotDetected); Tricyclic Antidepressant,Urine Not Detected (NotDetected); Urn Cannabinoid Scrn Not Detected (NotDetected)
[2023-01-16] MEDS ORDERED: ASPIRIN 325 MG TAB PO STA (00:43)
--- NOTE | 2023-01-16 00:45 | ED ---
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 Patient was sent by his nursing facility after he accidentally tugged at his Rendon catheter and they saw blood in the Rendon catheter. Presents for evaluation regarding this. The nursing facility states that they did dose him with his normal evening medications which did make him sleepy which is why presents as his currently. They state he is typically alert and oriented 2-3. Currently alert and oriented times one. Patient declines any pain. Does not know why he is here. Is sleepy, and requires stimulation to awaken. No obvious focal deficits. Has a PEG tube that appears well as well as a Rendon catheter that still appears to be draining but there is some blood in it. Presents for further evaluation. - Related Data Home Medications Medication Instructions Recorded Confirmed Dipyridamole 50 mg PO QID 03/05/14 09/01/22 Omeprazole [PriLOSEC] 20 mg PO DAILY 03/05/14 09/01/22 amLODIPine [Norvasc] 10 mg PO DAILY 03/05/14 09/01/22 hydroCHLOROthiazide [Hydrodiuril] 50 mg PO DAILY 03/05/14 09/01/22 Acyclovir 400 mg PO BID 01/01/21 09/01/22 Benazepril HCl 40 mg PO DAILY 01/01/21 09/01/22 Bimatoprost [Lumigan 0.01% Ophth 1 drop BOTH EYES HS 01/01/21 09/01/22 Soln] Dicyclomine [Bentyl] 10 mg PO DAILY 01/01/21 09/01/22 Finasteride [Proscar] 5 mg PO DAILY 01/01/21 09/01/22 allopurinoL [Zyloprim] 100 mg PO HS 01/01/21 09/01/22 Potassium Chloride ER [K-Dur 20] 20 meq PO BID 01/15/21 09/01/22 Vit C/E/Zn/Coppr/Lutein/Zeaxan 1 cap PO BID 01/15/21 09/01/22 [Preservision Areds 2 Softgel] rOPINIRole HCL [Requip] 0.25 mg PO HS 01/15/21 09/01/22 Carbidopa-Levodopa 25-100 mg 1 tab PO TID 09/01/22 09/01/22 [Sinemet 25-100 mg] Donepezil [Aricept] 10 mg PO HS 09/01/22 09/01/22 sitaGLIPtin [Januvia] 100 mg PO DAILY 09/01/22 09/01/22 tadalafiL 5 mg PO DAILY 09/01/22 09/01/22 Previous Rx's Medication Instructions Recorded Aspirin 81 mg PO DAILY tab 09/03/22 Atorvastatin [Lipitor] 80 mg PO HS tab 09/03/22 Ticagrelor [Brilinta] 90 mg PO BID tab 09/03/22 Allergies Allergy/AdvReac Type Severity Reaction Status Date / Time clopidogrel bisulfate Allergy Itching Verified 08/30/22 06:58 [From Plavix] shellfish derived [Shellfish] Allergy Anaphylaxis Verified 08/30/22 06:58 venom-honey bee Allergy Swelling Verified 08/30/22 06:58 [bee venom (honey bee)] Review of Systems ROS Statement: Those systems with pertinent positive or pertinent negative responses have been documented in the HPI. ROS Other: All systems not noted in ROS Statement are negative. 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 SANTO DOMINGO-HAS HEARING AIDES BUT DOESN'T WEAR THEM. ENLARGED PROSTATE, BILAT CATARACTS, HYPOGLYCEMIA, HITAL HERNIA History of Any Multi-Drug Resistant Organisms: None Reported Additional Past Surgical History / Comment(s): HX BUNIONECTOMY, COLONOSCOPY Past Anesthesia/Blood Transfusion Reactions: Motion Sickness Additional Past Anesthesia/Blood Transfusion Reaction / Comment(s): HX MENIERE'S DISEASE Past Psychological History: No Psychological Hx Reported Smoking Status: Never smoker Past Alcohol Use History: Occasional Past Drug Use History: None Reported General Exam - General Exam Comments Initial Comments: General: Somewhat lethargic, sleepy. Easily to arouse. Alert and oriented 1 at this time only to self. HEAD: Normal with no signs of head trauma. EYES: PERRLA, EOMI, conjunctiva normal, no discharge. 2 mm equal bilaterally. ENT: Hearing grossly intact, normal oropharynx. RESPIRATORY: Clear breath sounds bilaterally. No wheezes, rales, or rhonchi. C/V: Regular rate and rhythm. S1 and S2 auscultated, no edema, peripheral pulses 2+ and intact throughout ABD: Abd is soft, nontender, nondistended. PEG tube in place and appears clean and is working well. : Full catheter placed and is draining. Some blood in the tubing. EXT: Normal range of motion, no obvious deformity SKIN: No rashes or lesions observed on exposed skin. NEURO: Alert and oriented times one. Able to move all 4 extremities. No focal deficits appreciated, however patient is somewhat altered at this time and is not cooperative with exam. Limitations: altered mental status, physical limitation Course Vital Signs 01/15/23 01/15/23 21:35 23:54 Pulse Rate 88 58 L Respiratory 17 17 Rate Blood Pressure 119/63 132/63 O2 Sat by Pulse 97 96 Oximetry Medical Decision Making - Medical Decision Making Was pt. sent in by a medical professional or institution ([facility]ro, [employer]ORDINATOR, urgent care, hospital, or detention...) When possible be specific @ -Yes, his detention Did you speak to anyone other than the patient for history (EMS, parent, family, police, friend...)? What history was obtained from this source @ -Nursing staff here contacted nursing staff at the facility who provided most of the patient's history. Did you review nursing and triage notes (agree or disagree)? Why? @ -I reviewed and agree with nursing and triage notes Were old charts reviewed (outside hosp., previous admission, EMS record, old EKG, old radiological studies, urgent care reports/EKG's, detention records)? Report findings @ -Old charts reviewed from August 2022. Differential Diagnosis (chest pain, altered mental status, abdominal pain women, abdominal pain men, vaginal bleeding, weakness, fever, dyspnea, syncope, headache, dizziness, GI bleed, back pain, seizure, CVA, palpatations, mental health, musculoskeletal)? @ -Differential Altered Mental Status: Hypoglycemia, DKA, hypercapnia, ETOH, overdose, CO poisoning, trauma, myxedema coma, HTN encephalopathy, infection, encephalitis, psychosis, intercranial hemorrhage, hepatic encephalopathy, meningitis, CVA, rendon catheter complication, this is not meant to be an all-inclusive list EKG interpreted by me (3pts min.). @ -As above X-rays interpreted by me (1pt min.). @ -Chest x-ray reveals no obvious acute cardiac primary process. CT interpreted by me (1pt min.). @ -CT brain shows possible subacute CVA in the left basal ganglia. Is new when compared with CT from August 2022 per radiology. Is not acute per radiology. U/S interpreted by me (1pt. min.). @ -None done What testing was considered but not performed or refused? (CT, X-rays, U/S, labs)? Why? @ -None What meds were considered but not given or refused? Why? @ -None Did you discuss the management of the patient with other professionals (professionals i.e. , PA, [employer] COORDINATOR, lab, RT, psych nurse, licensed master social worker, military lawyer, teacher, sales and service officer, casework supervisor)? Give summary @ -Discussed with mid-level provider Purvi who accepted the patient. Patient admitted to [facility] Was smoking cessation discussed for >3mins.? @ -No Was critical care preformed (if so, how long)? @ -No Were there social determinants of health that impacted care today? How? (Homele ssness, low income, unemployed, alcoholism, drug addiction, transportation, low edu. Level, literacy, decrease access to med. care, usp, rehab)? @ -No Was there de-escalation of care discussed even if they declined (Discuss DNR or withdrawal of care, Hospice)? DNR status @ -No What co-morbidities impacted this encounter? (DM, HTN, Smoking, COPD, CAD, Cancer, CVA, ARF, Chemo, Hep., AIDS, mental health diagnosis, sleep apnea, morbid obesity)? @ -Parkinson's, dementia Was patient admitted / discharged? Hospital course, mention meds given and route, prescriptions, significant lab abnormalities, going to OR and other pertinent info. @ -Based on the patient's presentation and physical exam, I'm concerned for a catheter issue for the patient I cannot rule out other etiology at this time as patient does appear altered. Despite nursing staff at his detention stating that this is typical for him, I am uncertain as I have no known baseline for him. I have not seen him before. Therefore we will obtain altered mental status labs and CT brain especially since he fell yesterday. Rendon catheter will be irrigated. It is draining well. Bladder scan shows minimal urine in the bladder. Vital signs within acceptable limits. He will be given a 1 L fluid bolus. Laboratory studies are remarkable for an undetectable troponin. Bloody urine. Remainder of the labs are within acceptable limits. UDS positive for benzos. Imaging remarkable for possible subacute infarct in the left basal ganglia. No Compared to August [address] imaging. On reevaluation, patient remained somewhat sleepy. Rendon catheter appears to be functioning well. He does appear to be waking up somewhat but since he is not back to his baseline, we will admit him for neurology evaluation due to the concern for the subacute stroke. He will receive 325 mg of aspirin. We will co ntinue his home medications. I spoke with the admitting team NINO hinkle of [facility] who accepted the patient. On reevaluation after the patient was admitted, he is now alert and oriented 2- 3, moving all extremities. Able to cooperate with a neurological exam. NIH is at most 2 for maybe slight nasal labial fold landing as well as right upper extremity weakness. Unknown chronicity of these symptoms. Patient denies any acute symptoms. Feels well otherwise. Plan remains the same. I updated him on the plan and he was in agreement with the plan. Undiagnosed new problem with uncertain prognosis? @ -No Drug Therapy requiring intensive monitoring for toxicity (Heparin, Nitro, Insulin, Cardizem)? @ -No Were any procedures done? @ -No Diagnosis/symptom? @ -Rendon catheter complication Acute, or Chronic, or Acute on Chronic? @ -Acute Uncomplicated (without systemic symptoms) or Complicated (systemic symptoms)? @ -Complicated Side effects of treatment? @ -No Exacerbation, Progression, or Severe Exacerbation? @ -No Poses a threat to life or bodily function? How? (Chest pain, USA, VT, pneumonia, PE, COPD, DKA, ARF, appy, cholecystitis, CVA, Diverticulitis, Homicidal, Felipe icidal, threat to staff... and all critical care pts) @ -No Diagnosis/symptom? @ -Altered mental status, improved Acute, or Chronic, or Acute on Chronic? @ -Acute Uncomplicated (without systemic symptoms) or Complicated (systemic symptoms)? @ -Uncomplicated Side effects of treatment? @ -none Exacerbation, Progression, or Severe Exacerbation] @ -no Poses a threat to life or bodily function? @ -no Diagnosis/symptom? @ -Subacute CVA Acute, or Chronic, or Acute on Chronic? @ -subAcute Uncomplicated (without systemic symptoms) or Complicated (systemic symptoms)? @ -Complicated Side effects of treatment? @ -none Exacerbation, Progression, or Severe Exacerbation] @ -no Poses a threat to life or bodily function? @ -no - Lab Data Result diagrams: 01/15/23 22:08 01/15/23 22:08 Lab Results 01/15/23 01/15/23 01/15/23 Range/Units 22:08 22:08 22:08 WBC 8.4 (3.8-10.6) k/uL RBC 4.58 (4.30-5.90) m/uL Hgb 15.1 (13.0-17.5) gm/dL Hct 44.1 (39.0-53.0) % MCV 96.1 (80.0-100.0) fL MCH 33.0 (25.0-35.0) pg MCHC 34.4 (31.0-37.0) g/dL RDW 12.7 (11.5-15.5) % Plt Count 181 (150-450) k/uL MPV 8.4 Neutrophils % 76 % Lymphocytes % 13 % Monocytes % 7 % Eosinophils % 2 % Basophils % 0 % Neutrophils # 6.4 (1.3-7.7) k/uL Lymphocytes # 1.1 (1.0-4.8) k/uL Monocytes # 0.6 (0-1.0) k/uL Eosinophils # 0.2 (0-0.7) k/uL Basophils # 0.0 (0-0.2) k/uL PT 10.6 (9.0-12.0) sec INR 1.0 (<1.2) APTT 24.7 (22.0-30.0) sec Sodium 135 L (137-145) mmol/L Potassium 5.1 (3.5-5.1) mmol/L Chloride 106 (98-107) mmol/L Carbon Dioxide 23 (22-30) mmol/L Anion Gap 6 mmol/L BUN 14 (9-20) mg/dL Creatinine 0.66 (0.66-1.25) mg/dL Est GFR (CKD-EPI)AfAm >90 (>60 ml/min/1.73 sqM) Est GFR (CKD-EPI)NonAf >90 (>60 ml/min/1.73 sqM) Glucose 126 H (74-99) mg/dL Plasma Lactic Acid Jalen (0.7-2.0) mmol/L Calcium 8.3 L (8.4-10.2) mg/dL Total Bilirubin 1.0 (0.2-1.3) mg/dL AST 46 (17-59) U/L ALT 11 (4-49) U/L Alkaline Phosphatase 40 (38-126) U/L Ammonia (<30) umol/L Troponin I (0.000-0.034) ng/mL Total Protein 6.5 (6.3-8.2) g/dL Albumin 3.4 L (3.5-5.0) g/dL Urine Color Urine Appearance (Clear) Urine RBC (0-5) /hpf Urine WBC (0-5) /hpf Urine Opiates Screen (NotDetected) Ur Oxycodone Screen (NotDetected) Urine Methadone Screen (NotDetected) Ur Propoxyphene Screen (NotDetected) Ur Barbiturates Screen (NotDetected) U Tricyclic Antidepress (NotDetected) Ur Phencyclidine Scrn (NotDetected) Ur Amphetamines Screen (NotDetected) U Methamphetamines Scrn (NotDetected) U Benzodiazepines Scrn (NotDetected) Urine Cocaine Screen (NotDetected) U Marijuana (THC) Screen (NotDetected) 01/15/23 01/15/23 01/15/23 Range/Units 22:08 22:08 23:52 WBC (3.8-10.6) k/uL RBC (4.30-5.90) m/uL Hgb (13.0-17.5) gm/dL Hct (39.0-53.0) % MCV (80.0-100.0) fL MCH (25.0-35.0) pg MCHC (31.0-37.0) g/dL RDW (11.5-15.5) % Plt Count (150-450) k/uL MPV Neutrophils % % Lymphocytes % % Monocytes % % Eosinophils % % Basophils % % Neutrophils # (1.3-7.7) k/uL Lymphocytes # (1.0-4.8) k/uL Monocytes # (0-1.0) k/uL Eosinophils # (0-0.7) k/uL Basophils # (0-0.2) k/uL PT (9.0-12.0) sec INR (<1.2) APTT (22.0-30.0) sec Sodium (137-145) mmol/L Potassium (3.5-5.1) mmol/L Chloride (98-107) mmol/L Carbon Dioxide (22-30) mmol/L Anion Gap mmol/L BUN (9-20) mg/dL Creatinine (0.66-1.25) mg/dL Est GFR (CKD-EPI)AfAm (>60 ml/min/1.73 sqM) Est GFR (CKD-EPI)NonAf (>60 ml/min/1.73 sqM) Glucose (74-99) mg/dL Plasma Lactic Acid Jalen 1.1 (0.7-2.0) mmol/L Calcium (8.4-10.2) mg/dL Total Bilirubin (0.2-1.3) mg/dL AST (17-59) U/L ALT (4-49) U/L Alkaline Phosphatase (38-126) U/L Ammonia 19 (<30) umol/L Troponin I <0.012 (0.000-0.034) ng/mL Total Protein (6.3-8.2) g/dL Albumin (3.5-5.0) g/dL Urine Color Urine Appearance (Clear) Urine RBC (0-5) /hpf Urine WBC (0-5) /hpf Urine Opiates Screen Not Detected (NotDetected) Ur Oxycodone Screen Not Detected (NotDetected) Urine Methadone Screen Not Detected (NotDetected) Ur Propoxyphene Screen Not Detected (NotDetected) Ur Barbiturates Screen Not Detected (NotDetected) U Tricyclic Antidepress Not Detected (NotDetected) Ur Phencyclidine Scrn Not Detected (NotDetected) Ur Amphetamines Screen Not Detected (NotDetected) U Methamphetamines Scrn Not Detected (NotDetected) U Benzodiazepines Scrn Detected H (NotDetected) Urine Cocaine Screen Not Detected (NotDetected) U Marijuana (THC) Screen Not Detected (NotDetected) 01/15/23 Range/Units 23:52 WBC (3.8-10.6) k/uL RBC (4.30-5.90) m/uL Hgb (13.0-17.5) gm/dL Hct (39.0-53.0) % MCV (80.0-100.0) fL MCH (25.0-35.0) pg MCHC (31.0-37.0) g/dL RDW (11.5-15.5) % Plt Count (150-450) k/uL MPV Neutrophils % % Lymphocytes % % Monocytes % % Eosinophils % % Basophils % % Neutrophils # (1.3-7.7) k/uL Lymphocytes # (1.0-4.8) k/uL Monocytes # (0-1.0) k/uL Eosinophils # (0-0.7) k/uL Basophils # (0-0.2) k/uL PT (9.0-12.0) sec INR (<1.2) APTT (22.0-30.0) sec Sodium (137-145) mmol/L Potassium (3.5-5.1) mmol/L Chloride (98-107) mmol/L Carbon Dioxide (22-30) mmol/L Anion Gap mmol/L BUN (9-20) mg/dL Creatinine (0.66-1.25) mg/dL Est GFR (CKD-EPI)AfAm (>60 ml/min/1.73 sqM) Est GFR (CKD-EPI)NonAf (>60 ml/min/1.73 sqM) Glucose (74-99) mg/dL Plasma Lactic Acid Jalen (0.7-2.0) mmol/L Calcium (8.4-10.2) mg/dL Total Bilirubin (0.2-1.3) mg/dL AST (17-59) U/L ALT (4-49) U/L Alkaline Phosphatase (38-126) U/L Ammonia (<30) umol/L Troponin I (0.000-0.034) ng/mL Total Protein (6.3-8.2) g/dL Albumin (3.5-5.0) g/dL Urine Color Dark Red Urine Appearance Bloody (Clear) Urine RBC >182 H (0-5) /hpf Urine WBC >182 H (0-5) /hpf Urine Opiates Screen (NotDetected) Ur Oxycodone Screen (NotDetected) Urine Methadone Screen (NotDetected) Ur Propoxyphene Screen (NotDetected) Ur Barbiturates Screen (NotDetected) U Tricyclic Antidepress (NotDetected) Ur Phencyclidine Scrn (NotDetected) Ur Amphetamines Screen (NotDetected) U Methamphetamines Scrn (NotDetected) U Benzodiazepines Scrn (NotDetected) Urine Cocaine Screen (NotDetected) U Marijuana (THC) Screen (NotDetected) - EKG Data -: EKG Interpreted by Me EKG Comments: 12-lead Electrocardiogram Interpretation Note EKG was reviewed and interpreted by myself. 12-lead ECG performed at 2308 is interpreted by me as revealing normal sinus rhythm at a rate of 60 beats per minute. [place] is normal. [place] interval is 196 ms, QRS duration is 91 ms, QTc is 439 ms.. There were no acute ST or T wave abnormalities to suggest myocardial ischemia or injury. R wave progression across the precordium was satisfactory. By my interpretation this EKG is non-diagnostic for acute ischemia. When compared with EKG from August 2022, no significant change. Disposition Clinical Impression: Altered mental status, Rendon catheter problem Narrative: subacute cva Disposition: ADMITTED IP TO THIS HOSP Condition: Stable Time of Disposition: 00:35
[2023-01-16] MEDS: SODIUM CHLORIDE 0.9% 1,000 ML IV SCH ×2 (01:25→08:44)
[2023-01-16] MEDS ORDERED: HALOPERIDOL LACTATE 5 MG/ML 1 ML VIAL IM STA (05:29)
[2023-01-16 06:18] LABS: Glucose,Whole Blood 114 mg/dL (70-110)
[2023-01-16] MEDS: amLODIPine 10 MG TAB PO SCH (08:25)
[2023-01-16] MEDS: TICAGRELOR 90 MG TAB PO SCH ×2 (08:25→20:25)
[2023-01-16 09:26] LABS: Basophils % (A) 0 %; Eosinophils # (A) 0.2 k/uL (0-0.7); Eosinophils % (A) 2 %; HCT 42.1 % (39.0-53.0); Lymphocytes % (A) 11 %; MCH 32.4 pg (25.0-35.0); MCHC 33.4 g/dL (31.0-37.0); MCV 97.2 fL (80.0-100.0); Mean Platelet Volume 8.5; Monocytes # (A) 0.5 k/uL (0-1.0); Monocytes % (A) 6 %; Neutrophils # (A) 7.2 k/uL (1.3-7.7); Neutrophils % (A) 80 %; Platelet Count 173 k/uL (150-450); RBC 4.33 m/uL (4.30-5.90); RDW 12.8 % (11.5-15.5); WBC 9.1 k/uL (3.8-10.6)
[2023-01-16 09:27] LABS: African American GFR (CKD) >90 (>60 ml/min/1.73 sqM); Anion Gap 6 mmol/L; Blood Urea Nitrogen 11 mg/dL (9-20); Calcium 8.9 mg/dL (8.4-10.2); Carbon Dioxide 25 mmol/L (22-30); Chloride 108 mmol/L (98-107); Glucose 121 mg/dL (74-99); Non-African American GFR(CKD) >90 (>60 ml/min/1.73 sqM); Potassium 3.8 mmol/L (3.5-5.1); Sodium 139 mmol/L (137-145)
[2023-01-16] MEDS ORDERED: DEXTROSE 50% SYRINGE 50 ML IVP PRN ×2 (09:55)
[2023-01-16 11:48] LABS: Glucose,Whole Blood 134 mg/dL (70-110)
[2023-01-16] MEDS: INSULIN ASPART (NovoLOG) 100 UNIT/ML VIAL SQ SCH ×3 (11:53→20:25)
[2023-01-16] MEDS: PANTOPRAZOLE 40 MG TABLET PO SCH (11:57)
[2023-01-16] MEDS: FINASTERIDE 5 MG TAB PO SCH (11:58)
[2023-01-16 14:22] VITALS: BMI 20.7
[2023-01-16] MEDS: HEPARIN SODIUM,PORCINE/PF 5,000 UNIT/0.5 ML SYRINGE SQ SCH (15:18)
[2023-01-16] MEDS: CARBIDOPA-LEVODOPA 25-100 MG 1 EACH TAB PO SCH ×2 (15:18→20:25)
[2023-01-16 16:49] LABS: Glucose,Whole Blood 128 mg/dL (70-110)
[2023-01-16 20:08] LABS: Glucose,Whole Blood 100 mg/dL (70-110)
[2023-01-16] MEDS: DONEPEZIL 10 MG TAB PO SCH (20:25)
[2023-01-16] MEDS: ATORVASTATIN 80 MG TAB PO SCH (20:25)
[2023-01-16] MEDS: allopurinoL 100 MG TAB PO SCH (20:25)
[2023-01-16] MEDS: LATANOPROST 0.005% OPHTH DROPS 2.5 ML BTL BOTH EYES SCH (20:29)
--- NOTE | 2023-01-17 00:39 | P.HPIM ---
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 Patient was accidentally pulling at his Scott catheter and blood was noted in the catheter. Patient was transferred to ER for evaluation. Patient is awake alert and oriented x1-2 at baseline. Otherwise denied any complaints of chest pain or shortness of breath. Patient does have PEG tube. Patient is tolerating tube feeding. Patient has been afebrile. No nausea or vomiting or diarrhea recently. Laboratory showed WBC 8.4 hemoglobin 15.1 and platelets 181, sodium 135 potassium 5.1 chloride 106 bicarb is 23 BUN 14 and creatinine 0.66 and blood sugar 126 and calcium 8.3 albumin 3.4 and urinalysis showed greater than 182 RBCs and WBCs. UDS is positive for benzodiazepines. Review of Systems ROS unobtainable: due to mental status Past Medical History Past Medical History: CVA/TIA, Eye Disorder, GERD/Reflux, Hearing Disorder / Deafness, Hypertension, Prostate Disorder Additional Past Medical History / Comment(s): HX CVA 1987, MENIERE'S DISEASE, 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 [place]-HAS HEARING AIDES BUT DOESN'T WEAR THEM. ENLARGED PROSTATE, BILAT CATARACTS, HYPOGLYCEMIA, HITAL HERNIA History of Any Multi-Drug Resistant Organisms: None Reported Additional Past Surgical History / Comment(s): HX BUNIONECTOMY, COLONOSCOPY Past Anesthesia/Blood Transfusion Reactions: Motion Sickness Additional Past Anesthesia/Blood Transfusion Reaction / Comment(s): HX MENIERE'S DISEASE Past Psychological History: No Psychological Hx Reported Smoking Status: Never smoker Past Alcohol Use History: Occasional Past Drug Use History: None Reported - Past Family History Mother Family Medical History: Unable to Obtain Father Family Medical History: Unable to Obtain Medications and Allergies Home Medications Medication Instructions Recorded Confirmed Type RX: Dipyridamole 50 mg PO QID@00,06,12,18 03/05/14 01/16/23 History RX: amLODIPine [Norvasc] 10 mg PO DAILY@0800 03/05/14 01/16/23 History RX: Acyclovir 400 mg PO BID@0800,2100 01/01/21 04/22/23 History RX: Benazepril HCl 40 mg PO DAILY@79901/01/21 01/16/23 History RX: Bimatoprost [Lumigan 0.01% 1 drop BOTH EYES HS@209901/01/21 01/16/23 History Ophth Soln] RX: Finasteride [Proscar] 5 mg PO DAILY@79901/01/21 01/16/23 History RX: allopurinoL [Zyloprim] 100 mg PO DAILY@00 01/01/21 01/16/23 History RX: Vit C/E/Zn/Coppr/Lutein/Zeaxan 1 cap PO DAILY@79901/15/21 01/16/23 History [Preservision Areds 2 Softgel] RX: rOPINIRole HCL [Requip] 0.25 mg PO HS@209901/15/21 01/16/23 History RX: Donepezil [Aricept] 10 mg PO DAILY@79909/01/22 01/16/23 History RX: sitaGLIPtin [Januvia] 100 mg PO DAILY@79909/01/22 01/16/23 History RX: Aspirin 81 mg PO DAILY tab 09/03/22 01/16/23 Rx RX: Ticagrelor [Brilinta] 90 mg PO BID tab 09/03/22 01/16/23 Rx Acetaminophen [Tylenol Arthritis] 650 mg PO Q4H PRN 01/16/23 01/16/23 History Atorvastatin [Lipitor] 80 mg PO DAILY@169901/16/23 01/16/23 History Carbidopa/Levodopa [Parcopa 25-100 1 tab PO TID@0800,1400,209901/16/23 01/16/23 History mg Odt] Cholecalciferol [Vitamin D3 (25 25 mcg PO DAILY@169901/16/23 01/16/23 History Mcg = 1000 Iu)] Famotidine [Pepcid] 20 mg PO BID@0800,1700 01/16/23 01/16/23 History Fluticasone Nasal [place] [Flonase 1 spray EA NOSTRIL DAILY@0800 01/16/23 01/16/23 History Nasal [place]] Magnesium Hydroxide [Milk of 7,200 mg PO DAILY PRN 01/16/23 01/16/23 History Magnesia Concentrate] Miconazole Nitrate 2% Powder 1 applic TOPICAL BID 01/16/23 01/16/23 History Na Phos,M-B/Na Phos,Di-Ba [Fleet 133 ml RECTAL DAILY PRN 01/16/23 01/16/23 History Adult] QUEtiapine [SEROquel] 25 mg PO HS@2100 01/16/23 01/16/23 History RX: LORazepam 0.5 mg PO TID@0400,1200,2000 01/16/23 01/16/23 History RX: Magic Cup 1 dose PO DAILY@1200 01/16/23 01/16/23 History RX: Melatonin 10 mg PO HS@2100 01/16/23 01/16/23 History RX: Mineral Oil 133 ml RECTAL DAILY PRN 01/16/23 01/16/23 History bisacodyL [Dulcolax] 10 mg RECTAL DAILY PRN 01/16/23 01/16/23 History carvediloL [Coreg] 6.25 mg PO BID@0800,1700 01/16/23 01/16/23 History hydrALAZINE HCL [Apresoline] 50 mg PO TID@0800,1400,2200 01/16/23 01/16/23 History Allergies Allergy/AdvReac Type Severity Reaction Status Date / Time clopidogrel bisulfate Allergy Itching Verified 01/16/23 11:46 [From Plavix] shellfish derived [Shellfish] Allergy Anaphylaxis Verified 01/16/23 11:46 venom-honey bee Allergy Swelling Verified 01/16/23 11:46 [bee venom (honey bee)] Physical Exam Vitals: Vital Signs Temp Pulse Pulse Resp BP BP Pulse Ox 01/16/23 03:31 97.6 F 55 L 16 153/70 95 01/16/23 01:50 97.4 F L 76 18 153/55 98 01/15/23 23:54 58 L 17 132/63 96 01/15/23 21:35 88 17 119/63 97 Intake and Output 01/15/23 01/16/23 01/16/23 22:59 06:59 14:59 Output Total 400 Balance -400 Output: Urine 400 Other: Voiding Method Indwelling Catheter Weight 69.218 kg 69.218 kg PHYSICAL EXAMINATION: Patient is lying in the bed. Awake alert. Patient is aphasic. Could not provide any history. HEENT: Normocephalic. Neck is supple. Pupils reactive. Nostrils clear. Oral cavity is moist. Neck reveals no JVD, carotid bruits, or thyromegaly. CHEST EXAMINATION: Trachea is central. Symmetrical expansion. Bibasilar diminished sounds.. CARDIAC: Normal S1, S2 with no gallops. No murmurs ABDOMEN: Soft. Bowel sounds present. Nontender. No organomegaly. No abdominal bruits. Extremities: reveal no edema. No clubbing or cyanosis Neurologically awake, alert, oriented x1. With residual Rt-sided weakness. Skin: No rash or skin lesions. Psychiatric: Coperative. Could not be assessed completely., Musculoskeletal: No joint swelling or deformity. Results CBC & Chem 7: 01/18/23 07:24 01/18/23 07:24 Labs: Abnormal Lab Results - Last 24 Hours (Table) 01/15/23 01/15/23 01/15/23 Range/Units 22:08 23:52 23:52 Sodium 135 L (137-145) mmol/L Chloride (98-107) mmol/L Creatinine (0.66-1.25) mg/dL Glucose 126 H (74-99) mg/dL POC Glucose (mg/dL) (70-110) mg/dL Calcium 8.3 L (8.4-10.2) mg/dL Albumin 3.4 L (3.5-5.0) g/dL Urine RBC >182 H (0-5) /hpf Urine WBC >182 H (0-5) /hpf U Benzodiazepines Scrn Detected H (NotDetected) 01/16/23 01/16/23 Range/Units 06:17 08:37 Sodium (137-145) mmol/L Chloride 108 H (98-107) mmol/L Creatinine 0.62 L (0.66-1.25) mg/dL Glucose 121 H (74-99) mg/dL POC Glucose (mg/dL) 114 H (70-110) mg/dL Calcium (8.4-10.2) mg/dL Albumin (3.5-5.0) g/dL Urine RBC (0-5) /hpf Urine WBC (0-5) /hpf U Benzodiazepines Scrn (NotDetected) Thrombosis Risk Factor Assmnt - DVT/VTE Prophylaxis DVT/VTE Prophylaxis: Pharmacologic Prophylaxis ordered - Choose All That Apply Any of the Below Risk Factors Present?: Yes Each Factor Represents 1 point: Medical pt on bed rest Each Risk Factor Represents 2 Points: Patient confined to bed Each Risk Factor Represents 3 Points: Age 75 years or older Thrombosis Risk Factor Assessment Total Risk Factor Score: 6 Thrombosis Risk Factor Assessment Level: High Risk Assessment and Plan Assessment: Hematuria with chronic indwelling Scott catheter. Resolved now. Alfenta status possible toxic encephalopathy. Improved now. Awake alert oriented x1-2 at baseline History of CVA in 1987 with residual rt-sided weakness Left basal ganglia extending into the left [place] radiator concerning for age- indeterminate CVA. New from 09/01/2022. Parkinson's disease Hypertension GERD ADD disorder/deafness BPH DVT prophylaxis with heparin subcu Plan: Patient will be continued on IV hydration and will be started back on PEG tube feeding. Hematuria is almost resolved now. Monitor H&H. Started back on home blood pressure medications and home medications including Proscar. Continue with the Brilinta and aspirin. Neurology was consulted for evaluation. Follow-up closely. Symptomatic management. Continue with PEG tube feeding. Time with Patient: Greater than 30
[2023-01-17] MEDS: HEPARIN SODIUM,PORCINE/PF 5,000 UNIT/0.5 ML SYRINGE SQ SCH ×3 (02:17→17:53)
[2023-01-17] MEDS: PANTOPRAZOLE 40 MG TABLET PO SCH (05:42)
[2023-01-17] MEDS: SODIUM CHLORIDE 0.9% 1,000 ML IV SCH (05:42)
[2023-01-17 06:03] LABS: Glucose,Whole Blood 152 mg/dL (70-110)
[2023-01-17] MEDS: INSULIN ASPART (NovoLOG) 100 UNIT/ML VIAL SQ SCH ×4 (06:24→22:07)
--- NOTE | 2023-01-17 07:07 | P.CNNES ---
History of Present Illness Consult date: 01/16/23 Requesting physician: Denver Yusuf Reason for Consult: confusion. AMS. subacute stroke findings History of Present Illness: This is a telemedicine neurology consultation performed today on 01/16/2043. Patient is a 82-year-old male who has history of CVA with right hemiparesis, came to the hospital yesterday at 9:31 PM by ambulance for acute onset of bleed. Patient not able to provide any history. As per EMS flow sheet, when they arrived at [facility], patient was sleeping in his bed. The nurse at the scene mentioned that patient is at his normal baseline and is being sent out her family due to having blood clotting in his Scott catheter. Nurse mentioned that patient suffers from dementia and is on blood thinners. He yanked on his Scott's catheter earlier tonight and sustained minor internal trauma to his urethra and due to the patient's use of blood thinners, has developed bleeding in the catheter tubing and is beginning to clot. Patient also has history of Parkinson's, dementia and diabetes. Patient's blood pressure was 113/57, pulse rate 69, respiration 14, saturation 93% Vital signs arrival blood pressure 119/63, pulse rate 88, temperature 97.4. Blood test shows normal CBC, PT/PTT, sodium 135 potassium 5.1, normal renal functions. Normal hepatic panel, urine had > 182 RBCs and WBCs. Urine drug screen positive for benzodiazepine. CT head revealed low-density left basal paris glia lesion extending into the left [place] radiata concerning for age indeterminate CVA. This is new from 09/01/2022. Dilation of the ventricular system which may be fractionally worse from prior. On review of records, it appears patient suffered from acute right hemiparesis in August 2022. Patient was taking aspirin and Persantine prior to the stroke. However after the stroke he was switched to aspirin and Brilinta 90 mg twice a day for 21 days and then stop Brilinta and continue aspirin. Lipitor 80 mg was recommended. Vascular surgery was consulted for carotid stenosis. Patient had moderate atherosclerotic narrowing supraclinoid left ICA. In the examination at that time it was reported patient was drooling from the right corner of the mouth. Patient apparently still taking aspirin 81 mg and Brilinta 90 mg twice a day. Also on Lipitor 80 mg daily. There is no new focal symptoms reported. Review of Systems Constitutional: Denies chills, Denies fever Eyes: denies blurred vision, denies pain Ears: deny: decreased hearing, ear discharge Ears, nose, mouth and throat: Denies headache, Denies sore throat Cardiovascular: Denies chest pain, Denies shortness of breath Respiratory: Denies cough Gastrointestinal: Denies abdominal pain, Denies diarrhea, Denies nausea, Denies vomiting Neurological: Denies motor disturbance, Denies numbness, Denies paresthesias Psychiatric: Denies anxiety, Denies depression Past Medical History Past Medical History: CVA/TIA, Eye Disorder, GERD/Reflux, Hearing Disorder / Deafness, Hypertension, Prostate Disorder Additional Past Medical History / Comment(s): HX CVA 1987, MENIERE'S DISEASE, 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 [place]-HAS HEARING AIDES BUT DOESN'T WEAR THEM. ENLARGED PROSTATE, BILAT CATARACTS, HYPOGLYCEMIA, HITAL HERNIA History of Any Multi-Drug Resistant Organisms: None Reported Additional Past Surgical History / Comment(s): HX BUNIONECTOMY, COLONOSCOPY Past Anesthesia/Blood Transfusion Reactions: Motion Sickness Additional Past Anesthesia/Blood Transfusion Reaction / Comment(s): HX MENIERE'S DISEASE Past Psychological History: No Psychological Hx Reported Smoking Status: Never smoker Past Alcohol Use History: Occasional Past Drug Use History: None Reported - Past Family History Mother Family Medical History: Unable to Obtain Father Family Medical History: Unable to Obtain Medications and Allergies Home Medications Medication Instructions Recorded Confirmed Type Dipyridamole 50 mg PO QID@00,06,12,18 03/05/14 01/16/23 History amLODIPine [Norvasc] 10 mg PO DAILY@79903/05/14 01/16/23 History Acyclovir 400 mg PO BID@08,209901/01/21 01/16/23 History Benazepril HCl 40 mg PO DAILY@79901/01/21 01/16/23 History Bimatoprost [Lumigan 0.01% Ophth 1 drop BOTH EYES HS@209901/01/21 01/16/23 History Soln] Finasteride [Proscar] 5 mg PO DAILY@79901/01/21 01/16/23 History allopurinoL [Zyloprim] 100 mg PO DAILY@79901/01/21 01/16/23 History Vit C/E/Zn/Coppr/Lutein/Zeaxan 1 cap PO DAILY@0800 01/15/21 01/16/23 History [Preservision Areds 2 Softgel] rOPINIRole HCL [Requip] 0.25 mg PO HS@209901/15/21 01/16/23 History Donepezil [Aricept] 10 mg PO DAILY@0800 09/01/22 01/16/23 History sitaGLIPtin [Januvia] 100 mg PO DAILY@0800 09/01/22 01/16/23 History Aspirin 81 mg PO DAILY tab 09/03/22 01/16/23 Rx Ticagrelor [Brilinta] 90 mg PO BID tab 09/03/22 01/16/23 Rx Acetaminophen [Tylenol Arthritis] 650 mg PO Q4H PRN 01/16/23 01/16/23 History Atorvastatin [Lipitor] 80 mg PO DAILY@1700 01/16/23 01/16/23 History Carbidopa/Levodopa [Parcopa 25-100 1 tab PO TID@0800,1400,209901/16/23 01/16/23 History mg Odt] Cholecalciferol [Vitamin D3 (25 25 mcg PO DAILY@169901/16/23 01/16/23 History Mcg = 1000 Iu)] Famotidine [Pepcid] 20 mg PO BID@0800,1700 01/16/23 01/16/23 History Fluticasone Nasal [place] [Flonase 1 spray EA NOSTRIL DAILY@0800 01/16/23 01/16/23 History Nasal [place]] LORazepam 0.5 mg PO TID@0400,1200,199901/16/23 01/16/23 History Magic Cup 1 dose PO DAILY@1200 01/16/23 01/16/23 History Magnesium Hydroxide [Milk of 7,200 mg PO DAILY PRN 01/16/23 01/16/23 History Magnesia Concentrate] Melatonin 10 mg PO HS@209901/16/23 01/16/23 History Miconazole Nitrate 2% Powder 1 applic TOPICAL BID 01/16/23 01/16/23 History Mineral Oil 133 ml RECTAL DAILY PRN 01/16/23 01/16/23 History Na Phos,M-B/Na Phos,Di-Ba [Fleet 133 ml RECTAL DAILY PRN 01/16/23 01/16/23 History Adult] QUEtiapine [SEROquel] 25 mg PO HS@2100 01/16/23 01/16/23 History bisacodyL [Dulcolax] 10 mg RECTAL DAILY PRN 01/16/23 01/16/23 History carvediloL [Coreg] 6.25 mg PO BID@0800,1700 01/16/23 01/16/23 History hydrALAZINE HCL [Apresoline] 50 mg PO TID@0800,1400,2200 01/16/23 01/16/23 History Allergies Allergy/AdvReac Type Severity Reaction Status Date / Time clopidogrel bisulfate Allergy Itching Verified 01/16/23 11:46 [From Plavix] shellfish derived [Shellfish] Allergy Anaphylaxis Verified 01/16/23 11:46 venom-honey bee Allergy Swelling Verified 01/16/23 11:46 [bee venom (honey bee)] Physical Examination - Vital Signs Vital Signs: Vital Signs Temp Pulse Pulse Resp BP BP Pulse Ox 01/16/23 08:00 97.9 F 71 16 169/85 95 01/16/23 03:31 97.6 F 55 L 16 153/70 95 01/16/23 01:50 97.4 F L 76 18 153/55 98 01/15/23 23:54 58 L 17 132/63 96 01/15/23 21:35 88 17 119/63 97 Intake and Output 01/15/23 01/16/23 01/16/23 22:59 06:59 14:59 Output Total 400 325 Balance -400 -325 Output: Urine 400 325 Other: Voiding Method Indwelling Catheter Indwelling Catheter Weight 69.218 kg 69.218 kg Patient is an elderly male, in no acute distress. He is obviously drooling from right side of the mouth. This was also noticeable on the previous examination from previous admission. Patient repeats about "bowel movement, bowel movement". Patient does be that he has 2 sons, who lives not too far away. He admits to living in a usp. Patient is alert awake, knows his name, his age and that he is in [place] in [place]. He just knows it is December. Speech and language functions are normal. Patient can name and repeat very well. No aphasia or dysarthria. Attention, concentration intact and fund of knowledge is limited. On cranial nerve examination, pupils are equal, round and reacting to light, visual david could not be tested reliably. Extraocular muscles are intact with no nystagmus. Patient has right facial asymmetry, drooling from right side of the mouth. His tongue protrudes to the midline. Palatal elevation and sensation normal, hearing is slightly decreased , facial sensation normal. Patient is frequently opening his mouth widely, almost looking like jaw opening dystonia. On muscle strength testing, patient has generalized weakness around 4, but in general, appears that the left side is stronger as compared to the right. He does have right pronator drift. Deep tendon reflexes are symmetric 2+ in the upper extremities, 3 at the knees, plantars are withdrawal. Sensory to touch is equal with no neglect on double simultaneous stimulation. Cerebellar function showed no ataxia for [id number] testing. No dysdiad ochokinesia. No ataxia for [id number] testing on either side. Tone and bulk of muscles normal. Gait deferred.. On general examination, there is no carotid bruit or murmur, S1-S2 audible. Chest is clear on consultation. Abdomen is soft nontender. No organomegaly, bowel sounds present. Peripheral pulses are present. No edema. Results - Laboratory Findings CBC and BMP: 01/16/23 08:37 01/16/23 08:37 Abnormal Lab Findings: Abnormal Labs 01/15/23 01/15/23 01/15/23 22:08 23:52 23:52 Sodium 135 L Chloride Creatinine Glucose 126 H POC Glucose (mg/dL) Calcium 8.3 L Albumin 3.4 L Urine RBC >182 H Urine WBC >182 H U Benzodiazepines Scrn Detected H 01/16/23 01/16/23 06:17 08:37 Sodium Chloride 108 H Creatinine 0.62 L Glucose 121 H POC Glucose (mg/dL) 114 H Calcium Albumin Urine RBC Urine WBC U Benzodiazepines Scrn Assessment and Plan Assessment: * History of CVA, with right hemiparesis. Examination is stable as compared to last examination from August 2022. No evidence of a new stroke. * Status post bleed from urethral trauma because of yanking on the Scott's catheter * Dementia * Parkinson's disease * Diabetes * Hypertension * Hard of hearing * History of Mnire's disease Plan: * Patient's examination is stable as compared to last examination. No evidence of a new stroke. * CT head was reviewed. The low-density left basal ganglion lesion extending into the left [place] radiata is consistent with his acute ischemic stroke from August 2022, that was visible on the MRI from 09/02/2022. No new ischemic event. * Resume aspirin and Brilinta when cleared from Urology standpoint. * Patient's hemoglobin A1c 5.7 on 12/28/2022 * Lipid panel on 11/09/2022 showed cholesterol 78, LDL 17, HDL 29 and trigly ceride 153. * Carotid Doppler from 09/02/2022 showed 50-69% stenosis of the right carotid bifurcation, less than 50% stenosis of the left carotid bifurcation. Antegrade flow in both vertebral arteries. * CTA neck showed severe, just over 80% proximal right ICA stenosis. It was asymptomatic at that time. Vascular surgery has seen the patient in the past, recommended medical management and follow-up in their office. * We will repeat carotid Doppler. * 2-D echo from 09/01/2022 revealed left ventricular hypertrophy with preserved systolic function with EF 55%. Normal left atrial size. * Patient's Parkinson's is stable, continue Sinemet 25/100, 1 tablet 3 times a day. Patient also on Aricept 10 mg daily for cognitive impairment. * Neurology will follow clinically. Thank you for the consult.
[2023-01-17 08:25] LABS: Basophils % (A) 0 %; Eosinophils # (A) 0.1 k/uL (0-0.7); Eosinophils % (A) 1 %; HCT 45.5 % (39.0-53.0); HGB 15.6 gm/dL (13.0-17.5); Lymphocytes # (A) 0.9 k/uL (1.0-4.8); Lymphocytes % (A) 8 %; MCHC 34.3 g/dL (31.0-37.0); MCV 96.4 fL (80.0-100.0); Mean Platelet Volume 7.8; Monocytes # (A) 0.7 k/uL (0-1.0); Monocytes % (A) 6 %; Neutrophils # (A) 8.9 k/uL (1.3-7.7); Neutrophils % (A) 83 %; Platelet Count 212 k/uL (150-450); RBC 4.72 m/uL (4.30-5.90); RDW 12.9 % (11.5-15.5); WBC 10.7 k/uL (3.8-10.6)
[2023-01-17 08:51] LABS: African American GFR (CKD) >90 (>60 ml/min/1.73 sqM); Anion Gap 11 mmol/L; Blood Urea Nitrogen 13 mg/dL (9-20); Calcium 9.6 mg/dL (8.4-10.2); Carbon Dioxide 23 mmol/L (22-30); Chloride 105 mmol/L (98-107); Glucose 182 mg/dL (74-99); Non-African American GFR(CKD) 90 (>60 ml/min/1.73 sqM); Potassium 3.8 mmol/L (3.5-5.1); Sodium 139 mmol/L (137-145)
--- NOTE | 2023-01-17 09:20 | US ---
EXAMINATION TYPE: US carotid duplex BILAT DATE OF EXAM: 01/17/2023 COMPARISON: 11/03/2021 CLINICAL INDICATION: Male, 82 years old with history of Followup ICA stenosis; Limited due to patient postioning. TECHNIQUE: Carotid duplex ultrasound examination. Indirect Doppler criteria was utilized. 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 IMPRESSION: Less than 50% stenosis bilaterally on today's study. Criteria for Assigning % of Stenosis / Diameter reduction (Estimation based on the indirect measurements of the internal carotid artery velocities (ICA PSV). 1. Normal (no stenosis)=ICA PSV < 125 cm/s: ratio < 2.0: ICA EDV<40 cm/s. 2. Less than 50% stenosis=ICA PSV < 125 cm/s: ratio < 2.0: ICA EDV<40 cm/s. 3. 50 to 69% stenosis=ICA PSV of 125 to 230 cm/s: ration 2.0 ? 4.0: ICA EDV 40-100 cm/s. 4. Greater than 70% stenosis to near occlusion= ICA PSV > 230 cm/s: ratio > 4.0: ICA EDV > 100 cm/s. 5. Near occlusion= ICA PSV velocities may be low or undetectable: variable ratio and ICA EDV. 6. Total occlusion=unable to detect flow.
[2023-01-17] MEDS: ASPIRIN 81 MG PO SCH (09:35)
[2023-01-17] MEDS: FINASTERIDE 5 MG TAB PO SCH (09:36)
[2023-01-17] MEDS: amLODIPine 10 MG TAB PO SCH (09:36)
[2023-01-17] MEDS: CARBIDOPA-LEVODOPA 25-100 MG 1 EACH TAB PO SCH ×3 (09:36→22:18)
[2023-01-17] MEDS: TICAGRELOR 90 MG TAB PO SCH ×2 (09:36→22:18)
[2023-01-17 12:39] LABS: Glucose,Whole Blood 161 mg/dL (70-110)
[2023-01-17 16:46] LABS: Glucose,Whole Blood 143 mg/dL (70-110)
[2023-01-17 20:08] LABS: Glucose,Whole Blood 149 mg/dL (70-110)
--- NOTE | 2023-01-17 20:11 | P.PN ---
Subjective Progress Note Date: 01/17/23 This is a telemedicine neurology follow-up performed today on 01/17/2023. Patient is laying comfortably in the bed. Denies any headache. Objective - Vital Signs Vital signs: Vital Signs Temp 98.2 F 01/17/23 03:26 Pulse 75 01/17/23 08:00 Resp 16 01/17/23 08:00 BP 164/80 01/17/23 08:00 Pulse Ox 96 01/17/23 08:00 FiO2 Intake & Output 01/16/23 01/17/23 01/17/23 18:59 06:59 18:59 Intake Total 170 Output Total 2250 900 Balance -2079 Weight 69.218 kg Intake: Oral 170 Output: Urine 2250 900 Other: Voiding Method Indwelling Catheter Indwelling Catheter - Exam Patient is laying comfortably in the bed. Speech and language functions appears normal. Patient's gun profiler is equal bilaterally. Detailed testing deferred. - Labs CBC & Chem 7: 01/17/23 08:07 01/17/23 08:07 Labs: Abnormal Lab Results - Last 24 Hours (Table) 01/16/23 01/16/23 01/17/23 Range/Units 11:44 16:46 06:01 WBC (3.8-10.6) k/uL Neutrophils # (1.3-7.7) k/uL Lymphocytes # (1.0-4.8) k/uL Glucose (74-99) mg/dL POC Glucose (mg/dL) 134 H 128 H 152 H (70-110) mg/dL 01/17/23 01/17/23 Range/Units 08:07 08:07 WBC 10.7 H (3.8-10.6) k/uL Neutrophils # 8.9 H (1.3-7.7) k/uL Lymphocytes # 0.9 L (1.0-4.8) k/uL Glucose 182 H (74-99) mg/dL POC Glucose (mg/dL) (70-110) mg/dL Assessment and Plan Assessment: * History of CVA, with right hemiparesis. Examination is stable as compared to last examination from August 2022. No evidence of a new stroke. * Status post bleed from urethral trauma because of yanking on the Scott's catheter * Dementia * Parkinson's disease * Diabetes * Hypertension * Hard of hearing * History of Mnire's disease Plan: * Patient's examination is stable as compared to last examination. No evidence of a new stroke. * CT head was reviewed. The low-density left basal ganglion lesion extending into the left [place] radiata is consistent with his acute ischemic stroke from August 2022, that was visible on the MRI from 09/02/2022. No new ischemic event. * Resume aspirin and Brilinta when cleared from Urology standpoint. * Patient's hemoglobin A1c 5.7 on 12/28/2022 * Lipid panel on 11/09/2022 showed cholesterol 78, LDL 17, HDL 29 and triglyceride 153. * Carotid Doppler from 09/02/2022 showed 50-69% stenosis of the right carotid bifurcation, less than 50% stenosis of the left carotid bifurcation. A ntegrade flow in both vertebral arteries. * CTA neck showed severe, just over 80% proximal right ICA stenosis. It was asymptomatic at that time. Vascular surgery has seen the patient in the past, recommended medical management and follow-up in their office. * We will repeat carotid Doppler. * 2-D echo from 09/01/2022 revealed left ventricular hypertrophy with preserved systolic function with EF 55%. Normal left atrial size. * Patient's Parkinson's is stable, continue Sinemet 25/100, 1 tablet 3 times a day. Patient also on Aricept 10 mg daily for cognitive impairment. * No other workup indicated. Neurologically clear for discharge. Dr. Emilio Bullock will be starting neurology service in the morning.
[2023-01-17] MEDS: ATORVASTATIN 80 MG TAB PO SCH (22:18)
[2023-01-17] MEDS: DONEPEZIL 10 MG TAB PO SCH (22:18)
[2023-01-17] MEDS: LATANOPROST 0.005% OPHTH DROPS 2.5 ML BTL BOTH EYES SCH (22:19)
[2023-01-17] MEDS: allopurinoL 100 MG TAB PO SCH (22:19)
[2023-01-18] MEDS: HEPARIN SODIUM,PORCINE/PF 5,000 UNIT/0.5 ML SYRINGE SQ SCH ×4 (00:03→23:39)
[2023-01-18 06:12] LABS: Glucose,Whole Blood 165 mg/dL (70-110)
[2023-01-18] MEDS: PANTOPRAZOLE 40 MG TABLET PO SCH (06:50)
[2023-01-18] MEDS: INSULIN ASPART (NovoLOG) 100 UNIT/ML VIAL SQ SCH ×4 (06:54→21:15)
[2023-01-18] MEDS: SODIUM CHLORIDE 0.9% 1,000 ML IV SCH ×2 (06:55→14:39)
--- NOTE | 2023-01-18 07:28 | XR ---
EXAMINATION TYPE: XR chest 1V DATE OF EXAM: 01/18/2023 COMPARISON: 01/15/2023 HISTORY: Cough TECHNIQUE: Single frontal view of the chest is obtained. FINDINGS: There is increased density along the right paratracheal line. Left lung clear. No pleural effusion. No pneumothorax. Heart size normal. Underlying COPD suspected. IMPRESSION: 1. There is deviation of the trachea to the left with increased density along the medial margin the r ight upper lobe. Could be on the basis of pneumonia or mass recommend CT chest.
[2023-01-18] MEDS: FINASTERIDE 5 MG TAB PO SCH (07:54)
[2023-01-18] MEDS: amLODIPine 10 MG TAB PO SCH (07:54)
[2023-01-18] MEDS: ASPIRIN 81 MG PO SCH (07:54)
[2023-01-18] MEDS: CARBIDOPA-LEVODOPA 25-100 MG 1 EACH TAB PO SCH ×3 (07:54→21:21)
[2023-01-18] MEDS: TICAGRELOR 90 MG TAB PO SCH ×2 (07:54→21:21)
[2023-01-18 08:44] LABS: Basophils % (A) 0 %; Eosinophils # (A) 0.1 k/uL (0-0.7); Eosinophils % (A) 1 %; HCT 42.4 % (39.0-53.0); HGB 14.7 gm/dL (13.0-17.5); Lymphocytes % (A) 8 %; MCH 33.7 pg (25.0-35.0); MCHC 34.5 g/dL (31.0-37.0); MCV 97.7 fL (80.0-100.0); Mean Platelet Volume 8.4; Monocytes # (A) 0.7 k/uL (0-1.0); Monocytes % (A) 6 %; Neutrophils # (A) 10.8 k/uL (1.3-7.7); Neutrophils % (A) 84 %; Platelet Count 194 k/uL (150-450); RBC 4.35 m/uL (4.30-5.90); RDW 12.9 % (11.5-15.5); WBC 12.8 k/uL (3.8-10.6)
[2023-01-18 09:04] LABS: African American GFR (CKD) >90 (>60 ml/min/1.73 sqM); Anion Gap 7 mmol/L; Blood Urea Nitrogen 15 mg/dL (9-20); Calcium 9.2 mg/dL (8.4-10.2); Carbon Dioxide 28 mmol/L (22-30); Chloride 105 mmol/L (98-107); Glucose 164 mg/dL (74-99); Non-African American GFR(CKD) >90 (>60 ml/min/1.73 sqM); Potassium 3.5 mmol/L (3.5-5.1); Sodium 140 mmol/L (137-145)
[2023-01-18 11:27] LABS: Glucose,Whole Blood 165 mg/dL (70-110)
[2023-01-18] MEDS: AMPICILLIN-SULBACTAM 3 GM in SODIUM CHLORIDE 0.9% 100 ML IVPB SCH ×3 (14:36→23:39)
[2023-01-18 16:31] LABS: Glucose,Whole Blood 123 mg/dL (70-110)
[2023-01-18 19:52] LABS: Glucose,Whole Blood 142 mg/dL (70-110)
[2023-01-18] MEDS: DONEPEZIL 10 MG TAB PO SCH (21:21)
[2023-01-18] MEDS: LATANOPROST 0.005% OPHTH DROPS 2.5 ML BTL BOTH EYES SCH (21:21)
[2023-01-18] MEDS: allopurinoL 100 MG TAB PO SCH (21:21)
[2023-01-18] MEDS: ATORVASTATIN 80 MG TAB PO SCH (21:21)
--- NOTE | 2023-01-19 01:42 | P.PN ---
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 Patient was accidentally pulling at his Scott catheter and blood was noted in the catheter. Patient was transferred to ER for evaluation. Patient is awake alert and oriented x1-2 at baseline. Otherwise denied any complaints of chest pain or shortness of breath. Patient does have PEG tube. Patient is tolerating tube feeding. Patient has been afebrile. No nausea or vomiting or diarrhea recently. Laboratory showed WBC 8.4 hemoglobin 15.1 and platelets 181, sodium 135 potassium 5.1 chloride 106 bicarb is 23 BUN 14 and creatinine 0.66 and blood sugar 126 and calcium 8.3 albumin 3.4 and urinalysis showed greater than 182 RBCs and WBCs. UDS is positive for benzodiazepines. 01/17/2023 Patient is currently resting in the bed. Awake alert but nonverbal. Mentation is at baseline. Currently on room air. Afebrile overnight. No evidence of hematuria further. Laboratory data showed WBC 10.7 hemoglobin 15.6 and platelets 212 BUN 13 and creatinine 0.69 and A1c level is 6.1. Anticipate discharge in the next 24 hours to ECF. Current medications reviewed. Objective - Vital Signs Vital signs: Vital Signs Temp 98.2 F 01/17/23 03:26 Pulse 62 01/17/23 16:00 Resp 16 01/17/23 16:00 BP 163/66 01/17/23 16:00 Pulse Ox 96 01/17/23 16:00 FiO2 Intake & Output 01/17/23 01/17/23 01/18/23 06:59 18:59 06:59 Intake Total 600 Output Total 900 550 Balance -900 50 Intake: Tube Feeding 600 Output: Urine 900 550 Other: Voiding Method Indwelling Catheter Indwelling Catheter - Exam PHYSICAL EXAMINATION: Patient is lying in the bed. Awake alert. Patient is aphasic. Could not provide any history. HEENT: Normocephalic. Neck is supple. Pupils reactive. Nostrils clear. Oral cavity is moist. Neck reveals no JVD, carotid bruits, or thyromegaly. CHEST EXAMINATION: Trachea is central. Symmetrical expansion. Bibasilar diminished sounds.. CARDIAC: Normal S1, S2 with no gallops. No murmurs ABDOMEN: Soft. Bowel sounds present. Nontender. No organomegaly. No abdominal bruits. Extremities: reveal no edema. No clubbing or cyanosis Neurologically awake, alert, oriented x1. With residual Rt-sided weakness. Skin: No rash or skin lesions. Psychiatric: Coperative. Could not be assessed completely., Musculoskeletal: No joint swelling or deformity. - Labs CBC & Chem 7: 01/18/23 07:24 01/18/23 07:24 Labs: Abnormal Lab Results - Last 24 Hours (Table) 01/17/23 01/17/23 01/17/23 Range/Units 06:01 08:07 08:07 WBC 10.7 H (3.8-10.6) k/uL Neutrophils # 8.9 H (1.3-7.7) k/uL Lymphocytes # 0.9 L (1.0-4.8) k/uL Glucose (74-99) mg/dL POC Glucose (mg/dL) 152 H (70-110) mg/dL Hemoglobin A1c 6.1 H (0.0-6.0) % 01/17/23 01/17/23 01/17/23 Range/Units 08:07 12:38 16:44 WBC (3.8-10.6) k/uL Neutrophils # (1.3-7.7) k/uL Lymphocytes # (1.0-4.8) k/uL Glucose 182 H (74-99) mg/dL POC Glucose (mg/dL) 161 H 143 H (70-110) mg/dL Hemoglobin A1c (0.0-6.0) % 01/17/23 Range/Units 20:07 WBC (3.8-10.6) k/uL Neutrophils # (1.3-7.7) k/uL Lymphocytes # (1.0-4.8) k/uL Glucose (74-99) mg/dL POC Glucose (mg/dL) 149 H (70-110) mg/dL Hemoglobin A1c (0.0-6.0) % Assessment and Plan Assessment: Hematuria with chronic indwelling Scott catheter. Resolved now. Alfenta status possible toxic encephalopathy. Improved now. Awake alert oriented x1-2 at baseline History of CVA in 1987 with residual rt-sided weakness Left basal ganglia extending into the left [place] radiator concerning for age- indeterminate CVA. New from 09/01/2022. Parkinson's disease Hypertension GERD ADD disorder/deafness BPH DVT prophylaxis with heparin subcu Plan: Patient will be continued on IV hydration and will be started back on PEG tube feeding. Hematuria is almost resolved now. Monitor H&H. Started back on home blood pressure medications and home medications including Proscar. Continue with the Brilinta and aspirin. Neurology was consulted for evaluation. Follow-up closely. Symptomatic management. Continue with PEG tube feeding.
--- NOTE | 2023-01-19 01:50 | P.PN ---
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 Patient was accidentally pulling at his Scott catheter and blood was noted in the catheter. Patient was transferred to ER for evaluation. Patient is awake alert and oriented x1-2 at baseline. Otherwise denied any complaints of chest pain or shortness of breath. Patient does have PEG tube. Patient is tolerating tube feeding. Patient has been afebrile. No nausea or vomiting or diarrhea recently. Laboratory showed WBC 8.4 hemoglobin 15.1 and platelets 181, sodium 135 potassium 5.1 chloride 106 bicarb is 23 BUN 14 and creatinine 0.66 and blood sugar 126 and calcium 8.3 albumin 3.4 and urinalysis showed greater than 182 RBCs and WBCs. UDS is positive for benzodiazepines. 01/17/2023 Patient is currently resting in the bed. Awake alert but nonverbal. Mentation is at baseline. Currently on room air. Afebrile overnight. No evidence of hematuria further. Laboratory data showed WBC 10.7 hemoglobin 15.6 and platelets 212 BUN 13 and creatinine 0.69 and A1c level is 6.1. Anticipate discharge in the next 24 hours to ECF. 01/18/2023 Patient is awake alert but aphasic and mentation is at baseline. Patient has been afebrile and currently on room air. Carotid duplex showed less than 50% stenosis bilaterally. Chest x-ray showed there is deviation of the trachea to the left with increased density along the medial margin of the right upper lobe. Could be on the basis of pneumonia or mass recommend CT chest. Due to elevated WBC count patient will be started on antibiotics, Unasyn and was also seen by CRYSTAL GRINDER. Consentable aspiration and continue with n.p.o. Tolerating PEG tube feeding. Laboratory showed WBC 12.8 hemoglobin 14.7 BUN 15 and creatinine 0.67 and blood sugar is 164. Current medications reviewed. Objective - Vital Signs Vital signs: Vital Signs Temp 98.8 F 01/18/23 20:00 Pulse 79 01/18/23 20:00 Resp 18 01/18/23 20:00 BP 179/94 01/18/23 20:00 Pulse Ox 96 01/18/23 20:00 FiO2 Intake & Output 01/18/23 01/18/23 01/19/23 06:59 18:59 06:59 Output Total 600 600 Balance -600 -600 Weight 69.218 kg Output: Urine 600 600 Other: Voiding Method Indwelling Catheter Indwelling Catheter - Exam PHYSICAL EXAMINATION: Patient is lying in the bed. Awake alert. Patient is aphasic. Could not provide any history. HEENT: Normocephalic. Neck is supple. Pupils reactive. Nostrils clear. Oral cavity is moist. Neck reveals no JVD, carotid bruits, or thyromegaly. CHEST EXAMINATION: Trachea is central. Symmetrical expansion. Bibasilar diminished sounds.. CARDIAC: Normal S1, S2 with no gallops. No murmurs ABDOMEN: Soft. Bowel sounds present. Nontender. No organomegaly. No abdominal bruits. Extremities: reveal no edema. No clubbing or cyanosis Neurologically awake, alert, oriented x1. With residual Rt-sided weakness. Skin: No rash or skin lesions. Psychiatric: Coperative. Could not be assessed completely., Musculoskeletal: No joint swelling or deformity. - Labs CBC & Chem 7: 01/18/23 07:24 01/18/23 07:24 Labs: Abnormal Lab Results - Last 24 Hours (Table) 01/18/23 01/18/23 01/18/23 Range/Units 06:10 07:24 07:24 WBC 12.8 H (3.8-10.6) k/uL Neutrophils # 10.8 H (1.3-7.7) k/uL Glucose 164 H (74-99) mg/dL POC Glucose (mg/dL) 165 H (70-110) mg/dL 01/18/23 01/18/23 01/18/23 Range/Units 11:26 16:26 19:50 WBC (3.8-10.6) k/uL Neutrophils # (1.3-7.7) k/uL Glucose (74-99) mg/dL POC Glucose (mg/dL) 165 H 123 H 142 H (70-110) mg/dL Assessment and Plan Assessment: Hematuria with chronic indwelling Scott catheter on admission. Resolved now. Right medial lobe density with possible aspiration pneumonia Altered mental status possible toxic encephalopathy due to medications. Improved now. Awake alert oriented x1-2 at baseline History of CVA in 1987 with residual rt-sided weakness Left basal ganglia extending into the left [place] radiator concerning for age-indeterminate CVA. New from 09/01/2022. Parkinson's disease Hypertension GERD ADD disorder/deafness BPH DVT prophylaxis with heparin subcu Plan: Patient will be continued on IV hydration and will be started back on PEG tube feeding. Hematuria is almost resolved now. Monitor H&H. Started back on home blood pressure medications and home medications including Proscar. Continue with the Brilinta and aspirin. Neurology was consulted for evaluation. Follow-up closely. Symptomatic management. Continue with PEG tube feeding. Patient was started on Unasyn and CT chest was ordered. Follow-up procalcitonin level. Time with Patient: Greater than 30
[2023-01-19 06:16] LABS: Glucose,Whole Blood 175 mg/dL (70-110)
[2023-01-19] MEDS: AMPICILLIN-SULBACTAM 3 GM in SODIUM CHLORIDE 0.9% 100 ML IVPB SCH ×2 (06:19→12:29)
[2023-01-19] MEDS: PANTOPRAZOLE 40 MG TABLET PO SCH (06:19)
[2023-01-19] MEDS: INSULIN ASPART (NovoLOG) 100 UNIT/ML VIAL SQ SCH ×2 (06:20→12:29)
[2023-01-19 08:39] VITALS: RESP 18; TEMP 98.1
[2023-01-19] MEDS: ASPIRIN 81 MG PO SCH (08:39)
[2023-01-19] MEDS: FINASTERIDE 5 MG TAB PO SCH (08:39)
[2023-01-19] MEDS: amLODIPine 10 MG TAB PO SCH (08:39)
[2023-01-19] MEDS: CARBIDOPA-LEVODOPA 25-100 MG 1 EACH TAB PO SCH (08:39)
[2023-01-19] MEDS: HEPARIN SODIUM,PORCINE/PF 5,000 UNIT/0.5 ML SYRINGE SQ SCH (08:40)
[2023-01-19] MEDS: TICAGRELOR 90 MG TAB PO SCH (08:40)
[2023-01-19 08:59] LABS: Basophils % (A) 0 %; Eosinophils # (A) 0.1 k/uL (0-0.7); Eosinophils % (A) 1 %; HCT 42.7 % (39.0-53.0); HGB 14.1 gm/dL (13.0-17.5); Lymphocytes # (A) 0.9 k/uL (1.0-4.8); Lymphocytes % (A) 10 %; MCH 32.6 pg (25.0-35.0); MCHC 33.1 g/dL (31.0-37.0); MCV 98.3 fL (80.0-100.0); Mean Platelet Volume 8.4; Monocytes # (A) 0.5 k/uL (0-1.0); Monocytes % (A) 5 %; Neutrophils # (A) 8.1 k/uL (1.3-7.7); Neutrophils % (A) 82 %; Platelet Count 173 k/uL (150-450); RBC 4.34 m/uL (4.30-5.90); WBC 9.9 k/uL (3.8-10.6)
[2023-01-19 09:01] LABS: African American GFR (CKD) >90 (>60 ml/min/1.73 sqM); Anion Gap 8 mmol/L; Blood Urea Nitrogen 16 mg/dL (9-20); Calcium 8.8 mg/dL (8.4-10.2); Carbon Dioxide 29 mmol/L (22-30); Chloride 106 mmol/L (98-107); Glucose 157 mg/dL (74-99); Non-African American GFR(CKD) >90 (>60 ml/min/1.73 sqM); Potassium 3.5 mmol/L (3.5-5.1); Sodium 143 mmol/L (137-145)
[2023-01-19 11:47] LABS: Glucose,Whole Blood 188 mg/dL (70-110)
--- NOTE | 2023-01-19 12:32 | CT ---
EXAMINATION TYPE: CT chest wo con DATE OF EXAM: 01/19/2023 COMPARISON: 01/18/2023 HISTORY: sob CT DLP: 493.7 mGycm. Automated Exposure Control for Dose Reduction was Utilized. TECHNIQUE: CT scan of the thorax is performed without IV contrast. FINDINGS: LUNGS: The on the increased density along the medial margin of the right upper lobe appears to repres ent a prominent azygos fissure and vein. Subsegmental changes at the lung bases are most typical of a telectasis.. There is no pleural effusion or pneumothorax seen. The tracheobronchial tree is paten t. MEDIASTINUM: Lack of IV contrast is noted to limit evaluation for mediastinal and especially hilar ad enopathy. There are no definitive greater than 1 cm hilar or mediastinal lymph nodes. No cardiomega ly or pericardial effusion is seen. Atherosclerotic change aorta. Coronary artery calcification noted . There is mild cardiomegaly. Calcification along the aortic valve. OTHER: PEG tube noted. Hypertrophic and degenerative changes spine. IMPRESSION: 1. Area of increased attenuation involving the medial margin of the right upper lobe appears secondar y to a prominent azygos vein and fissure. This is a normal variant. 2. Basilar atelectasis favored over infiltrate.
[2023-01-19 12:34] VITALS: BP 171/76; PULSE 64
--- NOTE | 2023-01-19 14:30 | P.DS ---
Providers Date of admission: 01/16/23 00:39 Expected date of discharge: 01/19/23 Attending physician: Taisha Langley Consults: 01/16/23 00:39 Consult Physician Routine Consulting Provider: Roxane Hammer Consult Reason/Comments: confusion. AMS. subacute stroke findings Do you want consulting provider notified?: Yes Primary care physician: Fidel Faustino [facility] Course: Final diagnosis Hematuria with chronic indwelling Scott catheter on admission. Resolved now. Right medial lobe density with possible aspiration pneumonia Altered mental status possible toxic encephalopathy due to medications. Improved now. Awake alert oriented x1-2 at baseline History of CVA in 1987 with residual rt-sided weakness Left basal ganglia extending into the left [place] radiator concerning for age- indeterminate CVA. New from 09/01/2022. Parkinson's disease Hypertension GERD ADD disorder/deafness BPH DVT prophylaxis Full code Discharge disposition Patient is being discharged in a stable condition with guarded prognosis to [facility]. Patient will follow-up with Dr. Harmon in the outpatient setting upon discharge. Patient is to continue with Augmentin twice daily for the next 5 days to complete the course and would recommend albuterol nebulize treatments every 6 hours. Total time taken is greater than 35 minutes. Hospital course This is a 82-year-old male who [facility] with [facility] as he had been pulling on his Scott catheter and there was blood noted and also found to be slightly altered more than his normal. Patient was evaluated by neurology and cleared for discharge back and also started on antibiotics in the form of Zosyn with concerns for possible aspiration pneumonia. Patient is afebrile and white count within normal limits and will continue on Augmentin for 5 days to complete the course. Repeat labs today show a sodium of 143 with potassium of 3.5 BUN is 16 with current creatinine is 0.65. White count is normal at 9.9 and hemoglobin is 14.1 no further hematuria noted. Patient does receive tube feedings as mentioned below and recommend continue and also highly recommend aspiration precautions with head of the bed elevated 45 at all times. Please refer to other consultation notes for further HPI. Currently no reports of chest pain, shortness of breath, or palpitations. Patient is afebrile. No reports of nausea or vomiting and patient is tolerating tube feeds. Patient will be going to [facility] today. Guarded prognosis. Physical exam: Gen: This is a 82-year-old male who is alert and oriented 1-2 at baseline, thin built, ill-appearing, elderly appearing HEENT: Head is atraumatic, normocephalic. Pupils equal, round. Sclerae is anicteric. NECK: Supple. No JVD. No lymphadenopathy. No thyromegaly. LUNGS: Diminished breath sounds bilaterally with some scattered rhonchi noted. No intercostal retractions. HEART: S1, S2 muffled ABDOMEN: Soft. Bowel sounds are present. No masses. No tenderness. PEG tube noted EXTREMITIES: No pedal edema. No calf tenderness. NEUROLOGICAL: Patient is awake, alert and oriented x1-2. Diffusely weak Please refer to medication reconciliation sheet for a list of medications. The impression and plan of care has been dictated by Irena Harman, Nurse Practitioner as directed. Dr. Shivam MD I have performed a history and examination and MDM of this patient, discussed the same with the dictator, and agree with the dictator's assessment and plan as written ,documented as a scribe. Based on total visit time, I have performed more than 50% of the visit. Patient Condition at Discharge: Stable Plan - Discharge Summary Discharge Rx Participant: No New Discharge Prescriptions: New Amoxic-Pot Clav 875-125Mg [Augmentin 875-125] 1 tab PO Q12HR 5 Days #10 tab hydroCHLOROthiazide [Hydrodiuril] 50 mg PO DAILY tab Pantoprazole [Protonix] 40 mg PO AC-BRKFST tab Carbidopa-Levodopa 25-100 mg [Sinemet 25-100 mg] 1 each PO TID tab Albuterol Nebulized [Ventolin Nebulized (Accuneb)] 1.25 mg INHALATION Q6H 30 Days #300 ml Continue amLODIPine [Norvasc] 10 mg PO DAILY@0800 Dipyridamole 50 mg PO QID@00,06,12,18 Acyclovir 400 mg PO BID@0800,2100 allopurinoL [Zyloprim] 100 mg PO DAILY@0800 Benazepril HCl 40 mg PO DAILY@0800 Bimatoprost [Lumigan 0.01% Ophth Soln] 1 drop BOTH EYES HS@2100 Finasteride [Proscar] 5 mg PO DAILY@0800 rOPINIRole HCL [Requip] 0.25 mg PO HS@2100 Vit C/E/Zn/Coppr/Lutein/Zeaxan [Preservision Areds 2 Softgel] 1 cap PO DAILY@0800 sitaGLIPtin [Januvia] 100 mg PO DAILY@0800 Aspirin 81 mg PO DAILY tab Atorvastatin [Lipitor] 80 mg PO DAILY@1700 Cholecalciferol [Vitamin D3 (25 Mcg = 1000 Iu)] 25 mcg PO DAILY@1700 hydrALAZINE HCL [Apresoline] 50 mg PO TID@0800,1400,2200 Magic Cup 1 dose PO DAILY@1200 Magnesium Hydroxide [Milk of Magnesia Concentrate] 7,200 mg PO DAILY PRN PRN Reason: Constipation Melatonin 10 mg PO HS@2100 Mineral Oil 133 ml RECTAL DAILY PRN PRN Reason: Constipation Na Phos,M-B/Na Phos,Di-Ba [Fleet Adult] 133 ml RECTAL DAILY PRN PRN Reason: Constipation Donepezil [Aricept] 10 mg PO DAILY@0800 Ticagrelor [Brilinta] 90 mg PO BID tab Miconazole Nitrate 2% Powder 1 applic TOPICAL BID Acetaminophen [Tylenol Arthritis] 650 mg PO Q4H PRN PRN Reason: Pain Or Fever > 100.5 bisacodyL [Dulcolax] 10 mg RECTAL DAILY PRN PRN Reason: Constipation carvediloL [Coreg] 6.25 mg PO BID@0800,1700 Famotidine [Pepcid] 20 mg PO BID@0800,1700 Fluticasone Nasal [place] [Flonase Nasal [place]] 1 spray EA NOSTRIL DAILY@0800 QUEtiapine [SEROquel] 25 mg PO HS@2100 LORazepam 0.5 mg PO TID@0400,1200,1999 #4 tab Discontinued Carbidopa/Levodopa [Parcopa 25-100 mg Odt] 1 tab PO TID@0800,1400,2100 Discharge Medication List Dipyridamole 50 mg PO QID@00,06,12,18 03/05/14 [History] amLODIPine [Norvasc] 10 mg PO DAILY@0800 03/05/14 [History] Acyclovir 400 mg PO BID@0800,2100 01/01/21 [History] Benazepril HCl 40 mg PO DAILY@0800 01/01/21 [History] Bimatoprost [Lumigan 0.01% [facility] Soln] 1 drop BOTH EYES HS@209901/01/21 [History] Finasteride [Proscar] 5 mg PO DAILY@79901/01/21 [History] allopurinoL [Zyloprim] 100 mg PO DAILY@79901/01/21 [History] Vit C/E/Zn/Coppr/Lutein/Zeaxan [Preservision Areds 2 Softgel] 1 cap PO DAILY@79901/15/21 [History] rOPINIRole HCL [Requip] 0.25 mg PO HS@209901/15/21 [History] Donepezil [Aricept] 10 mg PO DAILY@79909/01/22 [History] sitaGLIPtin [Januvia] 100 mg PO DAILY@79909/01/22 [History] Aspirin 81 mg PO DAILY tab 09/03/22 [Rx] Ticagrelor [Brilinta] 90 mg PO BID tab 09/03/22 [Rx] Acetaminophen [Tylenol Arthritis] 650 mg PO Q4H PRN 01/16/23 [History] Atorvastatin [Lipitor] 80 mg PO DAILY@169901/16/23 [History] Cholecalciferol [Vitamin D3 (25 Mcg = 1000 Iu)] 25 mcg PO DAILY@169901/16/23 [History] Famotidine [Pepcid] 20 mg PO BID@0800,1700 01/16/23 [History] Fluticasone Nasal [place] [Flonase Nasal [place]] 1 spray EA NOSTRIL DAILY@79901/16/23 [History] Magic Cup 1 dose PO DAILY@119901/16/23 [History] Magnesium Hydroxide [Milk of Magnesia Concentrate] 7,200 mg PO DAILY PRN 01/16/23 [History] Melatonin 10 mg PO HS@209901/16/23 [History] Miconazole Nitrate 2% Powder 1 applic TOPICAL BID 01/16/23 [History] Mineral Oil 133 ml RECTAL DAILY PRN 01/16/23 [History] Na Phos,M-B/Na Phos,Di-Ba [Fleet Adult] 133 ml RECTAL DAILY PRN 01/16/23 [History] QUEtiapine [SEROquel] 25 mg PO HS@209901/16/23 [History] bisacodyL [Dulcolax] 10 mg RECTAL DAILY PRN 01/16/23 [History] carvediloL [Coreg] 6.25 mg PO BID@0800,1700 01/16/23 [History] hydrALAZINE HCL [Apresoline] 50 mg PO TID@0800,1400,2200 01/16/23 [History] Albuterol Nebulized [Ventolin Nebulized (Accuneb)] 1.25 mg INHALATION Q6H 30 Days #300 ml 01/19/23 [Rx] Amoxic-Pot Clav 875-125Mg [Augmentin 875-125] 1 tab PO Q12HR 5 Days #10 tab 01/19/23 [Rx] Carbidopa-Levodopa 25-100 mg [Sinemet 25-100 mg] 1 each PO TID tab 01/19/23 [Rx] LORazepam 0.5 mg PO TID@0400,1200,2000 #4 tab 01/19/23 [Rx] Pantoprazole [Protonix] 40 mg PO AC-BRKFST tab 01/19/23 [Rx] hydroCHLOROthiazide [Hydrodiuril] 50 mg PO DAILY tab 01/19/23 [Rx] Follow up Appointment(s)/Referral(s): Fidel Harmon DO [Primary Care Provider] - 1-2 days Activity/Diet/Wound Care/Special Instructions: Patient is going to [facility] where he resides Activity as tolerated Continue with antibiotics for 5 days to complete the course Recommend albuterol treatments every 6 hours Patient is maintained on tube feedings with Jevity 1.5 continuous with a goal rate of 50 and total volume is 1200 per day with 30 mL's every 4 hour free water flushes Strongly recommend aspiration precautions with head of bed elevated 45 at all times Discharge Disposition: TRANSFER TO SNF/ECF
== END 2023-01-19 18:15 | DRG 698 ==
LOC: EC 21:31 → 3SCARD 01-16 00:39
PROVIDERS: ADMIT Hospitalist; ATTEND Hospitalist
PROC: 3E0H76Z Introduction of Nutritional Substance into Lower GI, Via Natural or Artificial Opening (ICD-10-PCS; principal; 2023-01-16)
DX: S37.39XA Other injury of urethra, initial encounter (principal); G92.9 Unspecified toxic encephalopathy; J69.0 Pneumonitis due to inhalation of food and vomit; I69.351 Hemiplegia and hemiparesis following cerebral infarction affecting right dominant side; R47.01 Aphasia; R31.9 Hematuria, unspecified; G20 Parkinson's disease; F02.80 Dementia in other diseases classified elsewhere, unspecified severity, without behavioral disturbance, psychotic disturbance, mood disturbance, and anxiety; I10 Essential (primary) hypertension; E11.9 Type 2 diabetes mellitus without complications; I65.22 Occlusion and stenosis of left carotid artery; N40.0 Benign prostatic hyperplasia without lower urinary tract symptoms; H91.93 Unspecified hearing loss, bilateral; K21.9 Gastro-esophageal reflux disease without esophagitis; W19.XXXA Unspecified fall, initial encounter; Y73.1 Therapeutic (nonsurgical) and rehabilitative gastroenterology and urology devices associated with adverse incidents; Z86.19 Personal history of other infectious and parasitic diseases; Z88.8 Allergy status to other drugs, medicaments and biological substances; Z79.899 Other long term (current) drug therapy; Z79.02 Long term (current) use of antithrombotics/antiplatelets; Z79.82 Long term (current) use of aspirin; Z79.84 Long term (current) use of oral hypoglycemic drugs; Z93.1 Gastrostomy status; Z91.013 Allergy to seafood; Z91.030 Bee allergy status; Z86.69 Personal history of other diseases of the nervous system and sense organs; Y92.129 Unspecified place in nursing home as the place of occurrence of the external cause
CPT/HCPCS: 36415; 51798; 70450; 71045; 71046; 71250; 80048; 80053; 80306; 81001; 82140; 83036; 83605; 84145; 84484; 85025; 85610; 85730; 87635; 93005; 93880; 96360; 99285

== ENCOUNTER 2024-04-11 02:18 | Inpatient (IN) | payer MEDICARE ==
[2024-04-11] MEDS: SODIUM CHLORIDE 0.9% 1,000 ML IV STA ×5 (02:47→05:38)
--- NOTE | 2024-04-11 03:05 | ED ---
General Adult HPI - General Chief complaint: Recheck/Abnormal Lab/Rx Stated complaint: Hypertension Time Seen by Provider: 04/11/24 02:30 Source: patient, EMS, RN notes reviewed, old records reviewed Mode of arrival: EMS - History of Present Illness Initial comments: Patient is an 83-year-old male who presents emergency department for evaluation for tachycardia and hypertension. Started today. Has a history of CVA, deafness, PEG tube dependent, fully dependent. Has been tachycardic and hypertensive at his nursing facility today. Presents for further evaluation. Poor historian as he is baseline ANO x 1 and nonverbal. Cannot provide any history. Currently at his baseline per EMS as well as correction faculty. - Related Data Home Medications Medication Instructions Recorded Confirmed Dipyridamole 50 mg PO QID@00,06,12,18 03/05/14 01/16/23 amLODIPine [Norvasc] 10 mg PO DAILY@0800 03/05/14 01/16/23 Acyclovir 400 mg PO BID@0800,209901/01/21 01/16/23 Benazepril HCl 40 mg PO DAILY@0800 01/01/21 01/16/23 Bimatoprost [Lumigan 0.01% Ophth 1 drop BOTH EYES HS@209901/01/21 01/16/23 Soln] Finasteride [Proscar] 5 mg PO DAILY@0800 01/01/21 01/16/23 allopurinoL [Zyloprim] 100 mg PO DAILY@0800 01/01/21 01/16/23 Vit C/E/Zn/Coppr/Lutein/Zeaxan 1 cap PO DAILY@0800 01/15/21 01/16/23 [Preservision Areds 2 Softgel] rOPINIRole HCL [Requip] 0.25 mg PO HS@209901/15/21 01/16/23 Donepezil [Aricept] 10 mg PO DAILY@0800 09/01/22 01/16/23 sitaGLIPtin [Januvia] 100 mg PO DAILY@0800 09/01/22 01/16/23 Acetaminophen [Tylenol Arthritis] 650 mg PO Q4H PRN 01/16/23 01/16/23 Atorvastatin [Lipitor] 80 mg PO DAILY@1700 01/16/23 01/16/23 Cholecalciferol [Vitamin D3 (25 25 mcg PO DAILY@1700 01/16/23 01/16/23 Mcg = 1000 Iu)] Famotidine [Pepcid] 20 mg PO BID@0800,1700 01/16/23 01/16/23 Fluticasone Nasal [place] [Flonase 1 spray EA NOSTRIL DAILY@0800 01/16/23 01/16/23 Nasal Doyline] Magic Cup 1 dose PO DAILY@1200 01/16/23 01/16/23 Magnesium Hydroxide [Milk of 7,200 mg PO DAILY PRN 01/16/23 01/16/23 Magnesia Concentrate] Melatonin 10 mg PO HS@2100 01/16/23 01/16/23 Miconazole Nitrate 2% Powder 1 applic TOPICAL BID 01/16/23 01/16/23 Mineral Oil 133 ml RECTAL DAILY PRN 01/16/23 01/16/23 Na Phos,M-B/Na Phos,Di-Ba [Fleet 133 ml RECTAL DAILY PRN 01/16/23 01/16/23 Adult] QUEtiapine [SEROquel] 25 mg PO HS@2100 01/16/23 01/16/23 bisacodyL [Dulcolax] 10 mg RECTAL DAILY PRN 01/16/23 01/16/23 carvediloL [Coreg] 6.25 mg PO BID@0800,1700 01/16/23 01/16/23 hydrALAZINE HCL [Apresoline] 50 mg PO TID@0800,1400,2200 01/16/23 01/16/23 Previous Rx's Medication Instructions Recorded Aspirin 81 mg PO DAILY tab 09/03/22 Ticagrelor [Brilinta] 90 mg PO BID tab 09/03/22 Albuterol Nebulized [Ventolin 1.25 mg INHALATION Q6H 30 Days 01/19/23 Nebulized (Accuneb)] #300 ml Amoxic-Pot Clav 875-125Mg 1 tab PO Q12HR 5 Days #10 tab 01/19/23 [Augmentin 875-125] Carbidopa-Levodopa 25-100 mg 1 each PO TID tab 01/19/23 [Sinemet 25-100 mg] LORazepam 0.5 mg PO TID@0400,1200,2000 #4 tab 01/19/23 Pantoprazole [Protonix] 40 mg PO AC-BRKFST tab 01/19/23 hydroCHLOROthiazide [Hydrodiuril] 50 mg PO DAILY tab 01/19/23 Allergies Allergy/AdvReac Type Severity Reaction Status Date / Time clopidogrel bisulfate Allergy Itching Verified 01/16/23 11:46 [From Plavix] shellfish derived [Shellfish] Allergy Anaphylaxis Verified 01/16/23 11:46 venom-honey bee Allergy Swelling Verified 01/16/23 11:46 [bee venom (honey bee)] Review of Systems ROS Statement: Those systems with pertinent positive or pertinent negative responses have been documented in the HPI. ROS Other: All systems not noted in ROS Statement are negative. 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 [place]-HAS HEARING AIDES BUT DOESN'T WEAR THEM. 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 Date of last positivie culture/infection: 07/10/23 MDRO Source:: Peg Tube Additional Past Surgical History / Comment(s): HX BUNIONECTOMY, COLONOSCOPY Past Anesthesia/Blood Transfusion Reactions: Motion Sickness Additional Past Anesthesia/Blood Transfusion Reaction / Comment(s): HX MENIERE'S DISEASE Past Psychological History: No Psychological Hx Reported Smoking Status: Never smoker Past Alcohol Use History: Occasional Past Drug Use History: None Reported - Past Family History Mother Family Medical History: Unable to Obtain Father Family Medical History: Unable to Obtain General Exam - General Exam Comments Initial Comments: General: Appears in no acute distress. HEAD: Normal with no signs of head trauma. EYES: PERRLA, EOMI, conjunctiva normal, no discharge. ENT: Hearing grossly intact, normal oropharynx. RESPIRATORY: Clear breath sounds bilaterally. No wheezes, rales, or rhonchi. C/V: Tachycardic with regular rhythm. S1 and S2 auscultated, no edema, peripheral pulses 2+ and intact throughout ABD: Abdomen is soft. Suprapubic distention. Dry Scott catheter. Concern for possible retention. PEG tube appears within acceptable limits. EXT: Normal range of motion, no obvious deformity SKIN: Possible stage I decubitus ulcer. NEURO: ANO x 1. No obvious acute focal deficits Course Vital Signs 04/11/24 04/11/24 04/11/24 02:21 03:37 06:54 Temperature 98.1 F Pulse Rate 119 H 96 87 Respiratory 17 17 17 Rate Blood Pressure 143/86 122/90 152/86 O2 Sat by Pulse 96 96 Oximetry Medical Decision Making - Medical Decision Making Was pt. sent in by a medical professional or institution (, JOSE G, MOTOR POOL CLERK, urgent care, hospital, or correction...) When possible be specific @ -No Did you speak to anyone other than the patient for history (EMS, parent, family, police, friend...)? What history was obtained from this source @ -No Did you review nursing and triage notes (agree or disagree)? Why? @ -I reviewed and agree with nursing and triage notes Were old charts reviewed (outside hosp., previous admission, EMS record, old EKG, old radiological studies, urgent care reports/EKG's, correction records)? Report findings @ -No old charts were reviewed Differential Diagnosis (chest pain, altered mental status, abdominal pain women, abdominal pain men, vaginal bleeding, weakness, fever, dyspnea, syncope, headache, dizziness, GI bleed, back pain, seizure, CVA, palpatations, mental health, musculoskeletal)? @ -Dehydration, infection, UTI, Scott malfunction. This list is not all inclusive. EKG interpreted by me (3pts min.). @ -As above X-rays interpreted by me (1pt min.). @ -Chest x-ray reveals no obvious acute cardiopulmonary process. CT interpreted by me (1pt min.). @ -None done U/S interpreted by me (1pt. min.). @ -None done What testing was considered but not performed or refused? (CT, X-rays, U/S, labs)? Why? @ -None What meds were considered but not given or refused? Why? @ -None Did you discuss the management of the patient with other professionals (professionals i.e. JOSE G Oro, MOTOR POOL CLERK, lab, RT, psych nurse, drug abuse social worker, adhesion tester, teacher, correction officer head, employment case manager)? Give summary @ -Discussed with on-call [facility] who accepted the admission. Was smoking cessation discussed for >3mins.? @ -No Was critical care preformed (if so, how long)? @ -yes, 36 minutes Were there social determinants of health that impacted care today? How? (Homelessness, low income, unemployed, alcoholism, drug addiction, tr ansportation, low edu. Level, literacy, decrease access to med. care, retirement, rehab)? @ -No Was there de-escalation of care discussed even if they declined (Discuss DNR or withdrawal of care, Hospice)? DNR status @ -No What co-morbidities impacted this encounter? (DM, HTN, Smoking, COPD, CAD, Cancer, CVA, ARF, Chemo, Hep., AIDS, mental health diagnosis, sleep apnea, morbid obesity)? @ -None Was patient admitted / discharged? Hospital course, mention meds given and route, prescriptions, significant lab abnormalities, going to OR and other pertinent info. @ -Patient presents emergency department for tachycardia and hypertension. Currently is tachycardic. Is ANO x 1 and is currently at his baseline but cannot provide any history. Vital signs remarkable for tachycardia. We will obtain basic workup. Chest x-ray and infectious workup will be obtained as well. Patient's Scott catheter appears to be malfunctioning and we replaced and obtained 800 cc of urine output. This was likely the source of the patient's symptoms as his heart rate did improve following this. Will continue to e valuate for source of infection. Patient will be given a 1 L fluid bolus. Chest x-ray unremarkable. Labs remarkable for leukocytosis of 22.6. Lactic acidosis of 3.5. Mild hyponatremia of 127. Patient's urine remarkable for UTI. Scott catheter was replaced. On reevaluation, vital signs remained within acceptable limits. Patient met criteria for sepsis due to laboratory results as well as the initial tachycardia. Patient met sepsis criteria at 0349. Patient received 1 L fluid bolus and he will administered a second liter fluid bolus. He also be started on maintenance fluids. IV Rocephin was ordered for the UTI. Somehow the order was changed and patient was not administered Rocephin at the desired time 3:49 AM. Therefore I reordered it at 7 AM when this was realized. Patient likely did not meet the time period For antibiotics for sepsis. I spoke with the admitting team, [facility] who accepted the admission. Undiagnosed new problem with uncertain prognosis? @ -No Drug Therapy requiring intensive monitoring for toxicity (Heparin, Nitro, Insulin, Cardizem)? @ -No Were any procedures done? @ -No Diagnosis/symptom? @ -Sepsis, UTI, Scott catheter malfunction Acute, or Chronic, or Acute on Chronic? @ -Acute Uncomplicated (without systemic symptoms) or Complicated (systemic symptoms)? @ -Complicated Side effects of treatment? @ -None Exacerbation, Progression, or Severe Exacerbation] @ -No Poses a threat to life or bodily function? @ -Yes - Lab Data Result diagrams: 04/11/24 02:50 04/11/24 02:50 Lab Results 04/11/24 04/11/24 04/11/24 Range/Units 02:50 02:50 02:50 WBC 22.6 H (3.8-10.6) k/uL RBC 4.07 L (4.30-5.90) m/uL Hgb 13.1 (13.0-17.5) gm/dL Hct 40.4 (39.0-53.0) % MCV 99.2 (80.0-100.0) fL MCH 32.2 (25.0-35.0) pg MCHC 32.5 (31.0-37.0) g/dL RDW 13.2 (11.5-15.5) % Plt Count 379 (150-450) k/uL MPV 7.7 Neutrophils % 90 % Lymphocytes % 2 % Monocytes % 6 % Eosinophils % 1 % Basophils % 0 % Neutrophils # 20.4 H (1.3-7.7) k/uL Lymphocytes # 0.5 L (1.0-4.8) k/uL Monocytes # 1.3 H (0-1.0) k/uL Eosinophils # 0.2 (0-0.7) k/uL Basophils # 0.1 (0-0.2) k/uL PT 10.5 (10.0-12.5) sec INR 0.9 (<1.2) APTT 23.2 (22.0-30.0) sec Sodium (137-145) mmol/L Potassium (3.5-5.1) mmol/L Chloride (98-107) mmol/L Carbon Dioxide (22-30) mmol/L Anion Gap mmol/L BUN (9-20) mg/dL Creatinine (0.66-1.25) mg/dL Est GFR (CKD-EPI)AfAm (>60 ml/min/1.73 sqM) Est GFR (CKD-EPI)NonAf (>60 ml/min/1.73 sqM) Glucose (74-99) mg/dL Plasma Lactic Acid Jalen (0.7-2.0) mmol/L Calcium (8.4-10.2) mg/dL Total Bilirubin (0.2-1.3) mg/dL AST (17-59) U/L ALT (4-49) U/L Alkaline Phosphatase (38-126) U/L Total Protein (6.3-8.2) g/dL Albumin (3.5-5.0) g/dL Amylase (30-110) U/L Lipase (23-300) U/L Urine Color Light Yellow Urine Appearance Cloudy (Clear) Urine pH 7.0 (5.0-8.0) Ur Specific [place] 1.011 (1.001-1.035) Urine Protein Trace H (Negative) Urine Glucose (UA) Negative (Negative) Urine Ketones Negative (Negative) Urine Blood Large H (Negative) Urine Nitrite Negative (Negative) Urine Bilirubin Negative (Negative) Urine Urobilinogen <2.0 (<2.0) mg/dL Ur Leukocyte Esterase Large H (Negative) Urine RBC >182 H (0-5) /hpf Urine WBC >182 H (0-5) /hpf Urine WBC Clumps Few H (None) /hpf Ur Squamous Epith Cells <1 (0-4) /hpf Urine Bacteria Many H (None) /hpf Hyaline Casts 6 H (0-2) /lpf 04/11/24 04/11/24 Range/Units 02:50 02:50 WBC (3.8-10.6) k/uL RBC (4.30-5.90) m/uL Hgb (13.0-17.5) gm/dL Hct (39.0-53.0) % MCV (80.0-100.0) fL MCH (25.0-35.0) pg MCHC (31.0-37.0) g/dL RDW (11.5-15.5) % Plt Count (150-450) k/uL MPV Neutrophils % % Lymphocytes % % Monocytes % % Eosinophils % % Basophils % % Neutrophils # (1.3-7.7) k/uL Lymphocytes # (1.0-4.8) k/uL Monocytes # (0-1.0) k/uL Eosinophils # (0-0.7) k/uL Basophils # (0-0.2) k/uL PT (10.0-12.5) sec INR (<1.2) APTT (22.0-30.0) sec Sodium 127 L (137-145) mmol/L Potassium 4.2 (3.5-5.1) mmol/L Chloride 95 L (98-107) mmol/L Carbon Dioxide 17 L (22-30) mmol/L Anion Gap 15 mmol/L BUN 29 H (9-20) mg/dL Creatinine 0.68 (0.66-1.25) mg/dL Est GFR (CKD-EPI)AfAm >90 (>60 ml/min/1.73 sqM) Est GFR (CKD-EPI)NonAf 90 (>60 ml/min/1.73 sqM) Glucose 252 H (74-99) mg/dL Plasma Lactic Acid Jalen 3.5 H* (0.7-2.0) mmol/L Calcium 9.4 (8.4-10.2) mg/dL Total Bilirubin 0.7 (0.2-1.3) mg/dL AST 34 (17-59) U/L ALT 34 (4-49) U/L Alkaline Phosphatase 97 (38-126) U/L Total Protein 7.0 (6.3-8.2) g/dL Albumin 3.6 (3.5-5.0) g/dL Amylase 80 (30-110) U/L Lipase 190 (23-300) U/L Urine Color Urine Appearance (Clear) Urine pH (5.0-8.0) Ur Specific [place] (1.001-1.035) Urine Protein (Negative) Urine Glucose (UA) (Negative) Urine Ketones (Negative) Urine Blood (Negative) Urine Nitrite (Negative) Urine Bilirubin (Negative) Urine Urobilinogen (<2.0) mg/dL Ur Leukocyte Esterase (Negative) Urine RBC (0-5) /hpf Urine WBC (0-5) /hpf Urine WBC Clumps (None) /hpf Ur Squamous Epith Cells (0-4) /hpf Urine Bacteria (None) /hpf Hyaline Casts (0-2) /lpf - EKG Data -: EKG Interpreted by Me EKG Comments: 12-lead Electrocardiogram Interpretation Note EKG was reviewed and interpreted by myself. 12-lead ECG performed at 0309 is interpreted by me as revealing sinus tachycardia at a rate of 101 beats per minute. Left axis deviation. DC interval is 192 ms, QRS duration is 105 ms, QTc is 401 ms.. There were no ST or T wave abnormalities to suggest myocardial ischemia or injury. R wave progression across the precordium was delayed. By my interpretation this EKG is non-diagnostic for acute ischemia. Disposition Clinical Impression: UTI (urinary tract infection), Scott catheter problem, Sepsis Disposition: ADMITTED IP TO THIS HOSP Condition: Stable Time of Disposition: 03:56
[2024-04-11 03:08] LABS: Basophils # (A) 0.1 k/uL (0-0.2); Basophils % (A) 0 %; Eosinophils # (A) 0.2 k/uL (0-0.7); Eosinophils % (A) 1 %; HCT 40.4 % (39.0-53.0); HGB 13.1 gm/dL (13.0-17.5); Lymphocytes # (A) 0.5 k/uL (1.0-4.8); Lymphocytes % (A) 2 %; MCH 32.2 pg (25.0-35.0); MCHC 32.5 g/dL (31.0-37.0); MCV 99.2 fL (80.0-100.0); Mean Platelet Volume 7.7; Monocytes # (A) 1.3 k/uL (0-1.0); Monocytes % (A) 6 %; Neutrophils # (A) 20.4 k/uL (1.3-7.7); Neutrophils % (A) 90 %; Platelet Count 379 k/uL (150-450); RBC 4.07 m/uL (4.30-5.90); RDW 13.2 % (11.5-15.5); WBC 22.6 k/uL (3.8-10.6)
[2024-04-11 03:19] LABS: ALT 34 U/L (4-49); AST 34 U/L (17-59); African American GFR (CKD) >90 (>60 ml/min/1.73 sqM); Albumin 3.6 g/dL (3.5-5.0); Alkaline Phosphatase 97 U/L (38-126); Amylase 80 U/L (30-110); Anion Gap 15 mmol/L; Blood Urea Nitrogen 29 mg/dL (9-20); Calcium 9.4 mg/dL (8.4-10.2); Carbon Dioxide 17 mmol/L (22-30); Chloride 95 mmol/L (98-107); Glucose 252 mg/dL (74-99); Lipase 190 U/L (23-300); Non-African American GFR(CKD) 90 (>60 ml/min/1.73 sqM); Potassium 4.2 mmol/L (3.5-5.1); Sodium 127 mmol/L (137-145); Total Bilirubin 0.7 mg/dL (0.2-1.3)
[2024-04-11 03:22] LABS: INR 0.9 (<1.2); Partial Thromboplastin Time 23.2 sec (22.0-30.0); Prothrombin Time 10.5 sec (10.0-12.5)
--- NOTE | 2024-04-11 03:26 | XR ---
EXAM: XR Chest, 1 View CLINICAL HISTORY: hypertensions, Afib (hx of), tachycardia. ONLY ABLE TO OBTAIN 1 VIEW DUE TO PT BEING CONTRACTED + UNABLE TO SIT UPRIGHT TECHNIQUE: Frontal view of the chest. COMPARISON: 01-15-23 FINDINGS: Lungs: Lungs are underinflated but clear. Pleural space: Unremarkable. Heart: Suspect Cardiomegaly. Bones/joints: No acute findings. IMPRESSION: No acute findings in the chest.
[2024-04-11 03:29] LABS: Appearance,Urine Cloudy (Clear); Bacteria,Urine Many /hpf; Bilirubin,Urine Negative (Negative); Blood,Urine Large (Negative); Color,Urine Light Yellow; Glucose,Urine (UA) Negative (Negative); Hyaline Casts,Urine 6 /lpf (0-2); Ketones,Urine Negative (Negative); Leukocyte Esterase,Urine Large (Negative); Nitrite,Urine Negative (Negative); Protein,Urine Trace (Negative); RBC,Urine >182 /hpf (0-5); Specific Gravity,Urine 1.011 (1.001-1.035); Squamous Epithelial Cell,Urine <1 /hpf (0-4); Urobilinogen,Urine <2.0 mg/dL (<2.0); WBC,Urine >182 /hpf (0-5)
[2024-04-11] MEDS ORDERED: NALOXONE 0.4 MG/ML 1 ML VIAL IV PRN (03:51)
[2024-04-11] MEDS ORDERED: ONDANSETRON 4 MG/2 ML VIAL IVP PRN (03:51)
[2024-04-11] MEDS ORDERED: KETOROLAC 15 MG/ML 1 ML VIAL IVP PRN (03:51)
[2024-04-11] MEDS: SODIUM CHLORIDE 0.9% 1,000 ML IV SCH ×2 (04:20→15:47)
[2024-04-11] MEDS ORDERED: NA PHOS,M-B/NA PHOS,DI-BA 133 ML ENEMA RECTAL PRN (13:17)
[2024-04-11] MEDS ORDERED: ACETAMINOPHEN TAB 325 MG TAB PEG/G-TUBE PRN (13:17)
[2024-04-11] MEDS ORDERED: MAGNESIUM HYDROXIDE 2,400 MG/30 ML CUP PEG/G-TUBE PRN (13:17)
[2024-04-11] MEDS ORDERED: bisacodyL 10 MG SUPP RECTAL PRN (13:17)
[2024-04-11] MEDS ORDERED: ALBUTEROL NEBULIZED 1.25 MG/3 ML INHALATION PRN (13:17)
[2024-04-11] MEDS ORDERED: MINERAL OIL 133 ML ENEMA RECTAL PRN (13:17)
--- NOTE | 2024-04-11 13:28 | P.HPIM ---
History of Present Illness 83-year-old male long term resident mostly nonverbal came in because of fever sepsis found to have urinary tract infection patient is a Scott catheter patient is UTI from Scott catheter wound blood cultures and urine cultures were obtained patient was started on Rocephin and admitted to the hospital patient is nonverbal patient is hyponatremic secondary to hypovolemia has leukocytosis of 22,000 REVIEW OF SYSTEMS: All other systems are negative except those mentioned in the HPI PHYSICAL EXAMINATION: GENERAL: Patient is nonverbal, thin built cachectic male HEENT: Pupils are round and equally reacting to light. EOMI. No scleral icterus. No conjunctival pallor. Normocephalic, atraumatic. No pharyngeal erythema. No thyromegaly. CARDIOVASCULAR: S1 and S2 present. No murmurs, rubs, or gallops. PULMONARY: Chest is clear to auscultation, no wheezing or crackles. ABDOMEN: Soft, nontender, nondistended, normoactive bowel sounds. No palpable organomegaly. MUSCULOSKELETAL: No joint swelling or deformity. EXTREMITIES: No cyanosis, clubbing, or pedal edema. NEUROLOGICAL: Limited SKIN: No rashes. Assessment and plan Sepsis secondary to urinary tract infection catheter related, patient is on Rocephin, infectious disease was consulted -Hypovolemic hyponatremia patient is also on hydrochlorothiazide probably not a candidate for hydrochlorothiazide discontinue hydrochlorothiazide will start antihypertensive medications will be continued patient will be started on IV fluids -CVA TIA patient has muscle wasting bedbound long term resident -Hypertension resumed all other medications except for hydrochlorothiazide, patient is a PEG tube PEG tube feedings will be resumed -Parkinson's resumed on carbidopa levodopa -Benign prostatic hypertrophy DVT prophylaxis: Lovenox Past Medical History Past Medical History: CVA/TIA, Eye Disorder, GERD/Reflux, Hearing Disorder / Deafness, Hypertension, Prostate Disorder Additional Past Medical History / Comment(s): HX CVA 1987, MENIERE'S DISEASE, 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 [place]-HAS HEARING AIDES BUT DOESN'T WEAR THEM. 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 Date of last positivie culture/infection: 07/10/23 MDRO Source:: Peg Tube Additional Past Surgical History / Comment(s): HX BUNIONECTOMY, COLONOSCOPY Past Anesthesia/Blood Transfusion Reactions: Motion Sickness Additional Past Anesthesia/Blood Transfusion Reaction / Comment(s): HX MENIERE'S DISEASE Past Psychological History: No Psychological Hx Reported Smoking Status: Never smoker Past Alcohol Use History: Occasional Past Drug Use History: None Reported - Past Family History Mother Family Medical History: Unable to Obtain Father Family Medical History: Unable to Obtain Medications and Allergies Home Medications Medication Instructions Recorded Confirmed Type Dipyridamole 50 mg PEG/G-TUBE QID@00,06,12,18 03/05/14 04/11/24 History amLODIPine [Norvasc] 10 mg PEG/G-TUBE DAILY 03/05/14 04/11/24 History Benazepril HCl 40 mg PEG/G-TUBE DAILY@0800 01/01/21 04/11/24 History Finasteride [Proscar] 5 mg PEG/G-TUBE DAILY 01/01/21 04/11/24 History allopurinoL [Zyloprim] 100 mg PEG/G-TUBE DAILY 01/01/21 04/11/24 History Vit C/E/Zn/Coppr/Lutein/Zeaxan 1 cap PEG/G-TUBE DAILY 01/15/21 04/11/24 History [Preservision Areds 2 Softgel] rOPINIRole HCL [Requip] 0.25 mg PEG/G-TUBE HS 01/15/21 04/11/24 History Cholecalciferol [Vitamin D3 (25 25 mcg PEG/G-TUBE DAILY@1700 01/16/23 04/11/24 History Mcg = 1000 Iu)] Famotidine [Pepcid] 20 mg PEG/G-TUBE BID@0800,1700 01/16/23 04/11/24 History Fluticasone Nasal [place] [Flonase 1 spray EA NOSTRIL DAILY 01/16/23 04/11/24 History Nasal [place]] Magnesium Hydroxide [Milk of 7,200 mg PEG/G-TUBE DAILY PRN 01/16/23 04/11/24 History Magnesia Concentrate] Melatonin 10 mg PO HS@2100 01/16/23 04/11/24 History Mineral Oil 133 ml RECTAL DAILY PRN 01/16/23 04/11/24 History Na Phos,M-B/Na Phos,Di-Ba [Fleet 133 ml RECTAL DAILY PRN 01/16/23 04/11/24 History Adult] QUEtiapine [SEROquel] 25 mg PEG/G-TUBE HS 01/16/23 04/11/24 History bisacodyL [Dulcolax] 10 mg RECTAL DAILY PRN 01/16/23 04/11/24 History carvediloL [Coreg] 6.25 mg PEG/G-TUBE BID@0800,1700 01/16/23 04/11/24 History hydrALAZINE HCL [Apresoline] 50 mg PEG/G-TUBE TID@0800,1400,2200 01/16/23 04/11/24 History Acetaminophen Tab [Tylenol] 650 mg PEG/G-TUBE BID@0800,1700 04/11/24 04/11/24 History Acetaminophen Tab [Tylenol] 650 mg PEG/G-TUBE Q4H PRN 04/11/24 04/11/24 History Acyclovir [Zovirax] 400 mg PEG/G-TUBE BID 04/11/24 04/11/24 History Albuterol Nebulized [Ventolin 1.25 mg INHALATION RT-QID PRN 04/11/24 04/11/24 History Nebulized (Accuneb)] Aspirin 81 mg PEG/G-TUBE DAILY 04/11/24 04/11/24 History Atorvastatin [Lipitor] 40 mg PEG/G-TUBE 04/11/24 04/11/24 History Baclofen 5 mg PEG/G-TUBE TID@0800,1200,1700 04/11/24 04/11/24 History Bimatoprost [Lumigan 0.03% Ophth 1 drop BOTH EYES 04/11/24 04/11/24 History Soln] Carbidopa-Levodopa 25-100 mg 1 tab PEG/G-TUBE TID@0800,1200,1700 04/11/24 04/11/24 History [Sinemet 25-100 mg] Jevity 1.5 Bowen Liquid 474 ml PEG/G-TUBE 04/11/24 04/11/24 History TID@0100,0800,1300 LORazepam 0.5 mg PEG/G-TUBE 04/11/24 04/11/24 History TID@0600,1200,2100 PARoxetine ORAL SUSP [Paxil Oral 10 mg PEG/G-TUBE 04/11/24 04/11/24 History Susp] Prilosec 2mg/Ml 20 mg PEG/G-TUBE DAILY 04/11/24 04/11/24 History Ticagrelor [Brilinta] 90 mg PEG/G-TUBE BID 04/11/24 04/11/24 History hydroCHLOROthiazide [Hydrodiuril] 50 mg PEG/G-TUBE DAILY 04/11/24 04/11/24 History Allergies Allergy/AdvReac Type Severity Reaction Status Date / Time clopidogrel bisulfate Allergy Itching Verified 04/11/24 08:41 [From Plavix] shellfish derived [Shellfish] Allergy Anaphylaxis Verified 04/11/24 08:41 venom-honey bee Allergy Swelling Verified 04/11/24 08:41 [bee venom (honey bee)] Physical Exam Vitals: Vital Signs Temp Pulse Resp BP Pulse Ox 04/11/24 11:25 85 16 159/91 97 04/11/24 09:57 85 18 146/97 96 04/11/24 09:00 84 18 160/85 97 04/11/24 08:00 86 18 149/76 97 04/11/24 06:54 87 17 152/86 96 04/11/24 03:37 96 17 122/90 04/11/24 02:21 98.1 F 119 H 17 143/86 96 Intake and Output 04/10/24 04/11/24 04/11/24 22:59 06:59 14:59 Output Total 825 1300 Balance -825 -1300 Output: Urine 825 1300 Uretheral (Scott) 825 Other: Weight 60.328 kg 60.328 kg Results CBC & Chem 7: 04/11/24 02:50 04/11/24 02:50 Labs: Abnormal Lab Results - Last 24 Hours (Table) 04/11/24 04/11/24 04/11/24 Range/Units 02:50 02:50 02:50 WBC 22.6 H (3.8-10.6) k/uL RBC 4.07 L (4.30-5.90) m/uL Neutrophils # 20.4 H (1.3-7.7) k/uL Lymphocytes # 0.5 L (1.0-4.8) k/uL Monocytes # 1.3 H (0-1.0) k/uL Sodium 127 L (137-145) mmol/L Chloride 95 L (98-107) mmol/L Carbon Dioxide 17 L (22-30) mmol/L BUN 29 H (9-20) mg/dL Glucose 252 H (74-99) mg/dL Plasma Lactic Acid Jalen (0.7-2.0) mmol/L Urine Protein Trace H (Negative) Urine Blood Large H (Negative) Ur Leukocyte Esterase Large H (Negative) Urine RBC >182 H (0-5) /hpf Urine WBC >182 H (0-5) /hpf Urine WBC Clumps Few H (None) /hpf Urine Bacteria Many H (None) /hpf Hyaline Casts 6 H (0-2) /lpf 04/11/24 Range/Units 02:50 WBC (3.8-10.6) k/uL RBC (4.30-5.90) m/uL Neutrophils # (1.3-7.7) k/uL Lymphocytes # (1.0-4.8) k/uL Monocytes # (0-1.0) k/uL Sodium (137-145) mmol/L Chloride (98-107) mmol/L Carbon Dioxide (22-30) mmol/L BUN (9-20) mg/dL Glucose (74-99) mg/dL Plasma Lactic Acid Jalen 3.5 H* (0.7-2.0) mmol/L Urine Protein (Negative) Urine Blood (Negative) Ur Leukocyte Esterase (Negative) Urine RBC (0-5) /hpf Urine WBC (0-5) /hpf Urine WBC Clumps (None) /hpf Urine Bacteria (None) /hpf Hyaline Casts (0-2) /lpf
[2024-04-11] MEDS: ACETAMINOPHEN TAB 325 MG TAB PEG/G-TUBE SCH (16:45)
[2024-04-11] MEDS: FAMOTIDINE 20 MG TAB PEG/G-TUBE SCH (16:45)
[2024-04-11] MEDS: carvediloL 6.25 MG TAB PEG/G-TUBE SCH (16:46)
[2024-04-11] MEDS: CARBIDOPA-LEVODOPA 25-100 MG 1 EACH TAB PEG/G-TUBE SCH (16:46)
[2024-04-11] MEDS: ATORVASTATIN 40 MG TAB PEG/G-TUBE SCH (20:27)
[2024-04-11] MEDS: TICAGRELOR 90 MG TAB PEG/G-TUBE SCH (20:27)
[2024-04-11] MEDS: QUEtiapine 25 MG TAB PEG/G-TUBE SCH (20:27)
[2024-04-11] MEDS: DIPYRIDAMOLE 25 MG TAB PEG/G-TUBE SCH (20:44)
[2024-04-11 21:19] LABS: Glucose,Whole Blood 124 mg/dL (70-110)
[2024-04-11] MEDS: LATANOPROST 0.005% OPHTH DROPS 2.5 ML BTL BOTH EYES SCH (23:47)
[2024-04-11] MEDS: SCOPOLAMINE 1 MG/72 HR PATCH TRANSDERM SCH (23:48)
--- NOTE | 2024-04-11 23:48 | XR ---
EXAMINATION TYPE: XR chest 1V portable DATE OF EXAM: 04/11/2024 CLINICAL HISTORY: Nonverbal symptoms. TECHNIQUE: Single AP portable frontal view of the chest is obtained. COMPARISON: Chest x-ray from earlier today FINDINGS: Stable azygos lobe/fissure. Left lung remains clear. Cardiac silhouette size stable and up per limits of normal. Osseous structures are intact. IMPRESSION: No new acute pulmonary process.
[2024-04-11] MEDS: ACYCLOVIR 400 MG/10 ML CUP PEG/G-TUBE SCH (23:50)
[2024-04-11] MEDS: PAROXETINE PEG/G-TUBE SCH (23:50)
[2024-04-12] MEDS ORDERED: NON FORMULARY DRUG (Jevity 1.5 Cal Liquid 1,000 ML Ml) PEG/G-TUBE SCH (01:00)
[2024-04-12] MEDS: PANTOPRAZOLE SODIUM 40 MG GRANULE PKT PEG/G-TUBE SCH (06:41)
--- NOTE | 2024-04-12 07:12 | P.CONS ---
History of Present Illness - Reason for Consult Consult date: 04/11/24 Urinary tract infection Requesting physician: Fouzia Yin - Chief Complaint Tachycardic hypertensive x 1 day - History of Present Illness Patient is a 83-year-old male with a past medical history significant for reflux CVA TIA hypertension prostate disorder in this patient who is a intermediate resident patient has been sent to the ER from the intermediate with the patient was noticed to be tachycardic and hypertensive at the local intermediate patient is normally awake alert oriented x 1 and nonverbal and mentation is baseline has reported by the EMS to the ER physician patient on presentation to the hospital was afebrile and no fever have been recorded subsequently patient was tachycardic with a heart rate of 119 on arrival but not hypoxic and no need for supplemental oxygen he did have a white count of 22.6 with a left shift creatinine has been normal lactic acid was elevated liver enzymes are normal amylase lipase was normal urine was positive with concern for ureteric infection patient has been admitted to the hospital infectious disease was consulted for further management of antibiotic therapy patient also have a chest x-ray that was negative for acute finding in the chest most information has been obtained from review the chart as the patient cannot provide reliable history Review of Systems Positive points has been mentioned in HPI complete review could not be obtained because of his underlying mental status Past Medical History Past Medical History: CVA/TIA, Eye Disorder, GERD/Reflux, Hearing Disorder / Deafness, Hypertension, Prostate Disorder Additional Past Medical History / Comment(s): HX CVA 1987, MENIERE'S DISEASE, 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 [place]-HAS HEARING AIDES BUT DOESN'T WEAR THEM. 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 Year Discovered:: 07/10/23 MDRO Source:: Peg Tube Additional Past Surgical History / Comment(s): HX BUNIONECTOMY, COLONOSCOPY Past Anesthesia/Blood Transfusion Reactions: Motion Sickness Additional Past Anesthesia/Blood Transfusion Reaction / Comm: HX MENIERE'S DISEASE Past Psychological History: No Psychological Hx Reported Smoking Status: Never smoker Past Alcohol Use History: Occasional Past Drug Use History: None Reported - Past Family History Mother Family Medical History: Unable to Obtain Father Family Medical History: Unable to Obtain Medications and Allergies Home Medications Medication Instructions Recorded Confirmed Type Dipyridamole 50 mg PEG/G-TUBE QID@00,06,12,18 03/05/14 04/11/24 History amLODIPine [Norvasc] 10 mg PEG/G-TUBE DAILY 03/05/14 04/11/24 History Benazepril HCl 40 mg PEG/G-TUBE DAILY@0800 01/01/21 04/11/24 History Finasteride [Proscar] 5 mg PEG/G-TUBE DAILY 01/01/21 04/11/24 History allopurinoL [Zyloprim] 100 mg PEG/G-TUBE DAILY 01/01/21 04/11/24 History Vit C/E/Zn/Coppr/Lutein/Zeaxan 1 cap PEG/G-TUBE DAILY 01/15/21 04/11/24 History [Preservision Areds 2 Softgel] rOPINIRole HCL [Requip] 0.25 mg PEG/G-TUBE HS 01/15/21 04/11/24 History Cholecalciferol [Vitamin D3 (25 25 mcg PEG/G-TUBE DAILY@1700 01/16/23 04/11/24 History Mcg = 1000 Iu)] Famotidine [Pepcid] 20 mg PEG/G-TUBE BID@0800,1700 01/16/23 04/11/24 History Fluticasone Nasal [place] [Flonase 1 spray EA NOSTRIL DAILY 01/16/23 04/11/24 History Nasal [place]] Magnesium Hydroxide [Milk of 7,200 mg PEG/G-TUBE DAILY PRN 01/16/23 04/11/24 History Magnesia Concentrate] Melatonin 10 mg PO HS@2100 01/16/23 04/11/24 History Mineral Oil 133 ml RECTAL DAILY PRN 01/16/23 04/11/24 History Na Phos,M-B/Na Phos,Di-Ba [Fleet 133 ml RECTAL DAILY PRN 01/16/23 04/11/24 History Adult] QUEtiapine [SEROquel] 25 mg PEG/G-TUBE HS 01/16/23 04/11/24 History bisacodyL [Dulcolax] 10 mg RECTAL DAILY PRN 01/16/23 04/11/24 History carvediloL [Coreg] 6.25 mg PEG/G-TUBE BID@0800,1700 01/16/23 04/11/24 History hydrALAZINE HCL [Apresoline] 50 mg PEG/G-TUBE TID@0800,1400,2200 01/16/23 04/11/24 History Acetaminophen Tab [Tylenol] 650 mg PEG/G-TUBE BID@0800,1700 04/11/24 04/11/24 History Acetaminophen Tab [Tylenol] 650 mg PEG/G-TUBE Q4H PRN 04/11/24 04/11/24 History Acyclovir [Zovirax] 400 mg PEG/G-TUBE BID 04/11/24 04/11/24 History Albuterol Nebulized [Ventolin 1.25 mg INHALATION RT-QID PRN 04/11/24 04/11/24 History Nebulized (Accuneb)] Aspirin 81 mg PEG/G-TUBE DAILY 04/11/24 04/11/24 History Atorvastatin [Lipitor] 40 mg PEG/G-TUBE HS 04/11/24 04/11/24 History Baclofen 5 mg PEG/G-TUBE TID@0800,1200,1700 04/11/24 04/11/24 History Bimatoprost [Lumigan 0.03% Ophth 1 drop BOTH EYES HS 04/11/24 04/11/24 History Soln] Carbidopa-Levodopa 25-100 mg 1 tab PEG/G-TUBE TID@0800,1200,1700 04/11/24 04/11/24 History [Sinemet 25-100 mg] Jevity 1.5 Bowen Liquid 474 ml PEG/G-TUBE 04/11/24 04/11/24 History TID@0100,0800,1300 LORazepam 0.5 mg PEG/G-TUBE 04/11/24 04/11/24 History TID@0600,1200,2100 PARoxetine ORAL SUSP [Paxil Oral 10 mg PEG/G-TUBE HS 04/11/24 04/11/24 History Susp] Prilosec 2mg/Ml 20 mg PEG/G-TUBE DAILY 04/11/24 04/11/24 History Ticagrelor [Brilinta] 90 mg PEG/G-TUBE BID 04/11/24 04/11/24 History hydroCHLOROthiazide [Hydrodiuril] 50 mg PEG/G-TUBE DAILY 04/11/24 04/11/24 History Allergies Allergy/AdvReac Type Severity Reaction Status Date / Time clopidogrel bisulfate Allergy Itching Verified 04/11/24 08:41 [From Plavix] shellfish derived [Shellfish] Allergy Anaphylaxis Verified 04/11/24 08:41 venom-honey bee Allergy Swelling Verified 04/11/24 08:41 [bee venom (honey bee)] Physical Exam Vitals: Vital Signs Temp Pulse Resp BP Pulse Ox 04/11/24 11:25 85 16 159/91 97 04/11/24 09:57 85 18 146/97 96 04/11/24 09:00 84 18 160/85 97 04/11/24 08:00 86 18 149/76 97 04/11/24 06:54 87 17 152/86 96 04/11/24 03:37 96 17 122/90 04/11/24 02:21 98.1 F 119 H 17 143/86 96 Intake and Output 04/10/24 04/11/24 04/11/24 22:59 06:59 14:59 Output Total 825 1300 Balance -825 -1300 Output: Urine 825 1300 Uretheral (Scott) 825 Other: Weight 60.328 kg 60.328 kg GENERAL DESCRIPTION: Elderly male lying in bed, no distress. No tachypnea or accessory muscle of respiration use. HEENT: Shows Pallor , no scleral icterus. Oral mucous membrane is dry. No pharyngeal erythema or thrush NECK: Trachea central, no thyromegaly. LUNGS: Unlabored breathing. Clear to auscultation anteriorly. No wheeze or crackle. HEART: S1, S2, regular rate and rhythm. No loud murmur ABDOMEN: Soft, no tenderness , guarding or rigidity, no organomegaly EXTREMITIES: No edema of feet. SKIN: No rash, no masses palpable. NEUROLOGICAL: The patient is awake, alert, oriented x1, Results CBC & Chem 7: 04/11/24 02:50 04/11/24 02:50 Labs: Abnormal Lab Results - Last 24 Hours (Table) 04/11/24 04/11/24 04/11/24 Range/Units 02:50 02:50 02:50 WBC 22.6 H (3.8-10.6) k/uL RBC 4.07 L (4.30-5.90) m/uL Neutrophils # 20.4 H (1.3-7.7) k/uL Lymphocytes # 0.5 L (1.0-4.8) k/uL Monocytes # 1.3 H (0-1.0) k/uL Sodium 127 L (137-145) mmol/L Chloride 95 L (98-107) mmol/L Carbon Dioxide 17 L (22-30) mmol/L BUN 29 H (9-20) mg/dL Glucose 252 H (74-99) mg/dL Plasma Lactic Acid Jalen (0.7-2.0) mmol/L Urine Protein Trace H (Negative) Urine Blood Large H (Negative) Ur Leukocyte Esterase Large H (Negative) Urine RBC >182 H (0-5) /hpf Urine WBC >182 H (0-5) /hpf Urine WBC Clumps Few H (None) /hpf Urine Bacteria Many H (None) /hpf Hyaline Casts 6 H (0-2) /lpf 04/11/24 Range/Units 02:50 WBC (3.8-10.6) k/uL RBC (4.30-5.90) m/uL Neutrophils # (1.3-7.7) k/uL Lymphocytes # (1.0-4.8) k/uL Monocytes # (0-1.0) k/uL Sodium (137-145) mmol/L Chloride (98-107) mmol/L Carbon Dioxide (22-30) mmol/L BUN (9-20) mg/dL Glucose (74-99) mg/dL Plasma Lactic Acid Jalen 3.5 H* (0.7-2.0) mmol/L Urine Protein (Negative) Urine Blood (Negative) Ur Leukocyte Esterase (Negative) Urine RBC (0-5) /hpf Urine WBC (0-5) /hpf Urine WBC Clumps (None) /hpf Urine Bacteria (None) /hpf Hyaline Casts (0-2) /lpf Assessment and Plan (1) Leukocytosis Current Visit: Yes Status: Acute Code(s): D72.829 - ELEVATED WHITE BLOOD CELL COUNT, UNSPECIFIED SNOMED Code(s): 498025254 (2) UTI (urinary tract infection) Current Visit: Yes Status: Acute Code(s): N39.0 - URINARY TRACT INFECTION, SITE NOT SPECIFIED SNOMED Code(s): 17425640 Plan: 1patient presented to hospital with episode of hypertension and tachycardia also noticed to have elevated white count and did have a significantly positive UA concerning for symptomatic infection likely from enteric gram-negative pathogen 2Rocephin 2 g daily while waiting for the culture to finalize We will follow on clinical condition and cultures to further adjust medication if needed Thank you for this consultation we will follow the patient along with you Dictation was produced using [employer] dictation software. please excuse any g rammatical, word or spelling errors. Time with Patient: Greater than 30
[2024-04-12] MEDS: FINASTERIDE 5 MG TAB PEG/G-TUBE SCH (09:29)
[2024-04-12] MEDS: ASPIRIN 81 MG PEG/G-TUBE SCH (09:29)
[2024-04-12] MEDS: amLODIPine 10 MG TAB PEG/G-TUBE SCH (09:29)
[2024-04-12] MEDS: lisinopriL 20 MG TAB PEG/G-TUBE SCH (09:29)
[2024-04-12] MEDS: ENOXAPARIN 40 MG/0.4 ML SYRINGE SQ SCH (09:32)
[2024-04-12] MEDS: FLUTICASONE NASAL 50MCG/SPRAY 16GM BTL EA NOSTRIL SCH (09:33)
[2024-04-12 09:36] LABS: ALT 37 U/L (4-49); AST 33 U/L (17-59); African American GFR (CKD) >90 (>60 ml/min/1.73 sqM); Albumin 2.7 g/dL (3.5-5.0); Albumin/Globulin Ratio 0.9; Alkaline Phosphatase 70 U/L (38-126); Anion Gap 4 mmol/L; Blood Urea Nitrogen 15 mg/dL (9-20); Calcium 8.7 mg/dL (8.4-10.2); Carbon Dioxide 22 mmol/L (22-30); Chloride 106 mmol/L (98-107); Globulin 3.1 g/dL; Glucose 140 mg/dL (74-99); Non-African American GFR(CKD) >90 (>60 ml/min/1.73 sqM); Potassium 3.9 mmol/L (3.5-5.1); Sodium 132 mmol/L (137-145); Total Bilirubin 0.6 mg/dL (0.2-1.3); Total Protein 5.8 g/dL (6.3-8.2)
[2024-04-12 11:11] LABS: Basophils % (A) 0 %; Eosinophils # (A) 0.3 k/uL (0-0.7); Eosinophils % (A) 3 %; HCT 32.3 % (39.0-53.0); HGB 11.4 gm/dL (13.0-17.5); Lymphocytes # (A) 0.9 k/uL (1.0-4.8); Lymphocytes % (A) 8 %; MCH 35.2 pg (25.0-35.0); MCHC 35.3 g/dL (31.0-37.0); MCV 99.7 fL (80.0-100.0); Monocytes # (A) 1.2 k/uL (0-1.0); Monocytes % (A) 10 %; Neutrophils # (A) 8.8 k/uL (1.3-7.7); Neutrophils % (A) 77 %; Platelet Count 233 k/uL (150-450); RBC 3.24 m/uL (4.30-5.90); RDW 13.7 % (11.5-15.5); WBC 11.4 k/uL (3.8-10.6)
--- NOTE | 2024-04-12 12:58 | CDI ---
Documentation Clarification Form Date: 04/12/2024 12:27:48 PM From: Sabina Joseph RN CCDS Phone: [phone] Admit Date: 04/11/2024 03:55:00 AM Patient Name: Arnel Blair Visit Number: [id number] Discharge Date: ATTENTION: The Clinical Documentation Specialists (CDI) and [facility] Coding Staff appreciate your assistance in clarifying documentation. Please respond to the clarification below the line at the bottom and electronically sign. The CDI & [facility] Coding staff will review the response and follow-up if needed. Please note: Queries are made part of the Legal Health Record. If you have any questions, please contact the author of this message via ITS. Doctor: Fouzia Yin The patient is being described as having muscle wasting. Based on this information and the findings below, is there an additional diagnosis that is clinically appropriate for this patient? History/Risk Factors: 83 year old male presents to the ED from nursing facility for evaluation of tachycardia and hypertension. Medical History: CVA, Peg tube dependent, BPH and Parkinsons. 04/11, [place]. Clinical Indicators: Dietitian Consult, 04/11: BMI 19.1; Hgt 5ft 10in; Wgt 60.328kg Estimated by staff Needs in Kcal: Energy Needs 2000 EEN Kcal; KCAL comment [id number] [MSJ RMR] X 1.3 [AF] + 500 for wt gain = 2000 KCAL Estimated Protein needs: Protein range 1.5g/kg; Protein Needs 90g/day Prior to admission Jevity 1.5 Volume 1,422ml, Kcal 2,133. RD Goal: Jevity 1.5 Volume 1, 4222ml Kcals 2,133; Kcals/kg ibw 28.3, Kcals/kg IBW 28.3; Kcals/kg ABW 35.4; Tube feeding % 106 Protein grams 91; IBW (Gm per Kg) 1.2 Protein ABW (Gm per Kg ) 1.5; TF Free watered 180ml, % Estimated fluid 63, % RDI 100. RD Goal comment: Jevity 1.5 bolus feedings: 474mL 3X/day (8:00AM, 2:00PM, 8:00PM) + 30ml H2O flushes before and after each bolus feeding; pt is getting NaCl fluids 100ml/hr (2400mL) [ End] DC on typical TF regimen. Treatment: Monitoring Intake. Nutritional evaluation. Supplements: Jevity 1.5 474ml bolus feedings 3x a day and 30ml H2O flushes before and after each feeding. Is there an additional diagnosis that is clinically appropriate for this patient? [ ] Severe Protein-Calorie Malnutrition [ x] Other condition, please specify Moderate mal nutrition [ ] Unable to Determine Reference: Using the ASPEN Guidelines, Undernutrition (Malnutrition) is characterized by at least two of the following six findings. The severity can be determined based on the criteria listed below. Malnutrition Characteristics for Moderate and Severe Malnutrition Type of Malnutrition Acute Illness or Injury Chronic Illness Degree of Malnutrition Non-severe (moderate) Malnutrition Severe Malnutrition Non-severe (moderate) Malnutrition Severe Malnutrition Energy Intake <75% for >7 days = 50% for = 5 days <75% for = 1 month =75% for = 1 month Weight Loss 1-2% in one week, 5% in 1 month, 7.5% in 3 months 2% in one week, >5% in 1 month, >7.5% in 3 months 5% in one month, 7.5% in 3 months, 10% in 6 months, 20% in 1 year >5% in one month, >7.5% in 3 months, >10% in 6 months, >20% in 1 year Body Fat Wasting Mild Moderate Mild Severe Muscle Wasting Mild Moderate Mild Severe Presence of Edema Mild Moderate to Severe Mild Severe Front Desk Manager Strength Not applicable Measurably Reduced Not applicable Measurably Reduced Source: Rossy OrtegaV, Fidelia P, Estes G, et al. Consensus statement: Academy of Nutrition and Dietetics and [place] Society for Parenteral and Enteral Nutrition: characteristics recommended for the identification and documentation of adult malnutrition (undernutrition).CARYN J Parenter Enteral Nutr. 2012;36(3):275-283. (Template Last Revised: March 2023) MTDD
[2024-04-12 14:17] VITALS: RESP 18
[2024-04-12 16:34] LABS: Glucose,Whole Blood 135 mg/dL (70-110)
[2024-04-12] MEDS ORDERED: ZINC OXIDE PASTE (Z-GUARD) 1 APPLIC TOPICAL PRN (19:11)
[2024-04-13 00:02] LABS: Glucose,Whole Blood 134 mg/dL (70-110)
--- NOTE | 2024-04-13 06:02 | P.PN ---
Subjective Progress Note Date: 04/12/24 83-year-old male [facility] resident mostly nonverbal came in because of fever sepsis found to have urinary tract infection patient is a Scott catheter patient is UTI from Scott catheter wound blood cultures and urine cultures were obtained patient was started on Rocephin and admitted to the hospital patient is nonverbal patient is hyponatremic secondary to hypovolemia has leukocytosis of 22,000 04/12/2024 Patient seen and evaluated in follow-up today sleeping but arousable, contracted and non-verbal. Patient is maintained on antibiotics with ID following and awaiting cultures to determine discharge antibiotics. Scott catheter was exchanged. Plan is to return to [facility] where he resides. Patient is no code and need to discuss goal of care and possible hospice with POA. Patient is afebrile. Review of systems: unable to obtain as patient is non-verbal All medications have been reviewed PHYSICAL EXAMINATION: GENERAL: Patient is nonverbal, thin built cachectic male, severely contracted, elderly appearing, ill appearing HEENT: Pupils are round and equally reacting to light. EOMI. No scleral icterus. No conjunctival pallor. Normocephalic, atraumatic. No pharyngeal erythema. No thyromegaly. CARDIOVASCULAR: S1 and S2 present. No murmurs, rubs, or gallops. PULMONARY: Chest is clear to auscultation, no wheezing with faint crackles noted. ABDOMEN: Soft, nontender, nondistended, normoactive bowel sounds. No palpable organomegaly. MUSCULOSKELETAL: No joint swelling or deformity. significant contractures noted to lower extremities EXTREMITIES: No cyanosis, clubbing, or pedal edema. NEUROLOGICAL: Limited, non-verbal SKIN: No rashes. Assessment: Sepsis secondary to urinary tract infection catheter related, patient is on Rocephin, infectious disease following and awaiting cultures, prelim is gram negative bacilli -Hypovolemic hyponatremia, patient is also on hydrochlorothiazide, not a candidate for hydrochlorothiazide discontinue hydrochlorothiazide will start antihypertensive medications will be continued patient will be started on IV fluids, improving -CVA/ TIA history - muscle wasting, significant contractures noted on admission, cachexia, bedbound [facility] resident -severe protein calorie malnutrition with a bmi of 18.7 -Hypertension, resumed all other medications except for hydrochlorothiazide, patient is a PEG tube PEG tube feedings will be resumed -Parkinson's history, resumed on carbidopa levodopa -Benign prostatic hypertrophy -gi prophylaxis -DVT prophylaxis: Lovenox -No code Plan: Continue antibiotics with ID following awaiting cultures to finalize to determine discharge antibiotics To discuss further with overall goal of care with POA and possible hospice. Code status was addressed and POA noted that patient is a DNR. 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 The impression and plan of care has been dictated by Irena Harman, Nurse Practitioner as directed. Dr. Humphrey MD I have performed a history and examination and MDM of this patient, discussed the same with the dictator, and agree with the dictator's assessment and plan as written ,documented as a scribe. Based on total visit time, I have performed more than 50% of the visit. Objective - Vital Signs Vital signs: Vital Signs Temp 98.9 F 04/12/24 02:00 Pulse 88 04/12/24 02:00 Resp 16 04/12/24 02:00 BP 144/77 04/12/24 02:00 Pulse Ox 98 04/12/24 02:00 FiO2 Intake & Output 04/11/24 04/12/24 04/12/24 18:59 06:59 18:59 Intake Total 500 Output Total 1300 Balance -1300 500 Weight 60.328 kg 59 kg Intake: Intake, IV Titration 300 Amount Sodium Chloride 0.9% 1, 300 000 ml @ 75 mls/hr IV . [id number] [facility] Rx#:[id number] Tube Feeding 120 Other 80 Output: Urine 1300 Other: Voiding Method Indwelling Catheter - Labs CBC & Chem 7: 04/12/24 08:29 04/12/24 08:29 Labs: Abnormal Lab Results - Last 24 Hours (Table) 04/11/24 04/12/24 Range/Units 21:14 08:29 Sodium 132 L (137-145) mmol/L Creatinine 0.52 L (0.66-1.25) mg/dL Glucose 140 H (74-99) mg/dL POC Glucose (mg/dL) 124 H (70-110) mg/dL Total Protein 5.8 L (6.3-8.2) g/dL Albumin 2.7 L (3.5-5.0) g/dL Microbiology - Last 24 Hours (Table) 04/11/24 05:30 Blood Culture Gram Stain - Preliminary Blood Blood Culture - Preliminary Molecular ID
[2024-04-13 06:30] LABS: Glucose,Whole Blood 126 mg/dL (70-110)
[2024-04-13 07:48] LABS: Basophils % (A) 0 %; Eosinophils # (A) 0.7 k/uL (0-0.7); Eosinophils % (A) 6 %; HCT 32.1 % (39.0-53.0); HGB 10.6 gm/dL (13.0-17.5); Lymphocytes # (A) 0.8 k/uL (1.0-4.8); Lymphocytes % (A) 7 %; MCH 32.9 pg (25.0-35.0); MCV 99.9 fL (80.0-100.0); Mean Platelet Volume 8.2; Monocytes % (A) 9 %; Neutrophils # (A) 8.1 k/uL (1.3-7.7); Neutrophils % (A) 76 %; Platelet Count 235 k/uL (150-450); RBC 3.21 m/uL (4.30-5.90); RDW 13.7 % (11.5-15.5); WBC 10.7 k/uL (3.8-10.6)
[2024-04-13 08:16] LABS: African American GFR (CKD) >90 (>60 ml/min/1.73 sqM); Anion Gap 5 mmol/L; Blood Urea Nitrogen 14 mg/dL (9-20); Calcium 8.4 mg/dL (8.4-10.2); Carbon Dioxide 22 mmol/L (22-30); Chloride 109 mmol/L (98-107); Glucose 137 mg/dL (74-99); Magnesium 1.7 mg/dL (1.6-2.3); Non-African American GFR(CKD) >90 (>60 ml/min/1.73 sqM); Potassium 3.6 mmol/L (3.5-5.1); Sodium 136 mmol/L (137-145)
--- NOTE | 2024-04-13 08:16 | P.PN ---
Subjective Progress Note Date: 04/12/24 Principal diagnosis: Reason for follow-up visit urinary tract infection and positive blood culture Patient is a 83-year-old male with a past medical history significant for reflux CVA TIA hypertension prostate disorder in this patient who is a custodial resident patient has been sent to the ER from the custodial with the patient was noticed to be tachycardic and hypertensive, patient also have a positive UA concerning for urinary tract infection. On today's evaluation that is 04/12/2024, the patient continues to be afebrile, the patient is on room air and breathing comfortably, the Pt slightly more awake but not a very good historian no vomiting or diarrhea has been reported by the nursing staff. Patient white count is down to 11.4 creatinine 0.52 blood cultures with the coagulase-negative staph urine is growing gram-negative bacilli Objective - Vital Signs Vital signs: Vital Signs Temp 98.9 F 04/12/24 02:00 Pulse 88 04/12/24 02:00 Resp 16 04/12/24 02:00 BP 144/77 04/12/24 02:00 Pulse Ox 98 04/12/24 02:00 FiO2 Intake & Output 04/11/24 04/12/24 04/12/24 18:59 06:59 18:59 Intake Total 500 Output Total 1300 Balance -1300 500 Weight 60.328 kg 59 kg Intake: Intake, IV Titration 300 Amount Sodium Chloride 0.9% 1, 300 000 ml @ 75 mls/hr IV . [id number] [facility] Rx#:[id number] Tube Feeding 120 Other 80 Output: Urine 1300 Other: Voiding Method Indwelling Catheter - Exam GENERAL DESCRIPTION: An elderly male lying in bed in no distress RESPIRATORY SYSTEM: Unlabored breathing , decreased breath sounds at bases HEART: S1 S2 regular rate and rhythm , ABDOMEN: Soft , no tenderness EXTREMITIES: No edema feet - Labs CBC & Chem 7: 04/13/24 07:25 04/12/24 08:29 Labs: Abnormal Lab Results - Last 24 Hours (Table) 04/11/24 04/12/24 04/12/24 Range/Units 21:14 08:29 08:29 WBC 11.4 H (3.8-10.6) k/uL RBC 3.24 L (4.30-5.90) m/uL Hgb 11.4 L (13.0-17.5) gm/dL Hct 32.3 L (39.0-53.0) % MCH 35.2 H (25.0-35.0) pg Neutrophils # 8.8 H (1.3-7.7) k/uL Lymphocytes # 0.9 L (1.0-4.8) k/uL Monocytes # 1.2 H (0-1.0) k/uL Sodium 132 L (137-145) mmol/L Creatinine 0.52 L (0.66-1.25) mg/dL Glucose 140 H (74-99) mg/dL POC Glucose (mg/dL) 124 H (70-110) mg/dL Total Protein 5.8 L (6.3-8.2) g/dL Albumin 2.7 L (3.5-5.0) g/dL Microbiology - Last 24 Hours (Table) 04/11/24 05:15 Blood Culture - Preliminary Blood 04/11/24 02:50 Urine Culture - Preliminary Urine,Voided Gram Neg Bacilli 04/11/24 05:30 Blood Culture Gram Stain - Preliminary Blood Blood Culture - Preliminary Molecular ID Assessment and Plan (1) Leukocytosis Current Visit: Yes Status: Acute Code(s): D72.829 - ELEVATED WHITE BLOOD CELL COUNT, UNSPECIFIED SNOMED Code(s): 818625799 (2) UTI (urinary tract infection) Current Visit: Yes Status: Acute Code(s): N39.0 - URINARY TRACT INFECTION, SITE NOT SPECIFIED SNOMED Code(s): 87950024 (3) Positive blood culture Current Visit: Yes Status: Acute Code(s): R78.81 - BACTEREMIA SNOMED Code(s): 381662974 Plan: 1patient presented to hospital with episode of hypertension and tachycardia also noticed to have elevated white count and did have a significantly positive UA concerning for symptomatic infection likely from enteric gram-negative pathogen. 2patient did have a positive blood culture with staph epi more likely skin contamination no need for vancomycin 3patient to continue with Rocephin 2 g daily while waiting for the culture to finalize Dictation was produced using [employer] dictation software. please excuse any grammatical, word or spelling errors. Time with Patient: Less than 30
[2024-04-13 11:15] VITALS: BP 174/75; PULSE 93; TEMP 98.5
[2024-04-13 11:56] VITALS: BMI 19.4
[2024-04-13 12:03] LABS: Glucose,Whole Blood 152 mg/dL (70-110)
--- NOTE | 2024-04-13 12:28 | P.PN ---
Subjective Progress Note Date: 04/13/24 Principal diagnosis: Reason for follow-up visit urinary tract infection and positive blood culture Patient is a 83-year-old male with a past medical history significant for reflux CVA TIA hypertension prostate disorder in this patient who is a [facility] patient has been [facility] the [facility] with the patient was noticed to be tachycardic and hypertensive, patient also have a positive UA concerning for urinary tract infection. On today's evaluation that is 04/13/2024, Patient is afebrile patient is currently on room air and breathing comfortably no distress the patient is awake nonverbal cannot provide any history no vomiting diarrhea or any other changes reported by the nursing staff. Patient white count normalized to 10.7, creatinine 0.52 blood culture with coagulase-negative staph urine is growing gram-negative with ID sensitivity pending Objective - Vital Signs Vital signs: Vital Signs Temp 98.5 F 04/13/24 07:00 Pulse 93 04/13/24 07:00 Resp 18 04/13/24 07:00 BP 174/75 04/13/24 07:00 Pulse Ox 98 04/13/24 07:00 FiO2 Intake & Output 04/12/24 04/13/24 04/13/24 18:59 06:59 18:59 Weight 61.5 kg 61.5 kg Other: Voiding Method Indwelling Catheter Indwelling Catheter Indwelling Catheter # Bowel Movements 1 - Exam GENERAL DESCRIPTION: An elderly male lying in bed in no distress RESPIRATORY SYSTEM: Unlabored breathing , decreased breath sounds at bases HEART: S1 S2 regular rate and rhythm , ABDOMEN: Soft , no tenderness EXTREMITIES: No edema feet - Labs CBC & Chem 7: 04/13/24 07:25 04/13/24 07:25 Labs: Abnormal Lab Results - Last 24 Hours (Table) 04/12/24 04/13/24 04/13/24 Range/Units 16:32 00:00 06:28 WBC (3.8-10.6) k/uL RBC (4.30-5.90) m/uL Hgb (13.0-17.5) gm/dL Hct (39.0-53.0) % Neutrophils # (1.3-7.7) k/uL Lymphocytes # (1.0-4.8) k/uL Sodium (137-145) mmol/L Chloride (98-107) mmol/L Creatinine (0.66-1.25) mg/dL Glucose (74-99) mg/dL POC Glucose (mg/dL) 135 H 134 H 126 H (70-110) mg/dL 04/13/24 04/13/24 04/13/24 Range/Units 07:25 07:25 12:02 WBC 10.7 H (3.8-10.6) k/uL RBC 3.21 L (4.30-5.90) m/uL Hgb 10.6 L (13.0-17.5) gm/dL Hct 32.1 L (39.0-53.0) % Neutrophils # 8.1 H (1.3-7.7) k/uL Lymphocytes # 0.8 L (1.0-4.8) k/uL Sodium 136 L (137-145) mmol/L Chloride 109 H (98-107) mmol/L Creatinine 0.52 L (0.66-1.25) mg/dL Glucose 137 H (74-99) mg/dL POC Glucose (mg/dL) 152 H (70-110) mg/dL Microbiology - Last 24 Hours (Table) 04/11/24 05:30 Blood Culture Gram Stain - Preliminary Blood Blood Culture - Preliminary Coagulase Negative Staph Molecular ID 04/11/24 05:15 Blood Culture - Preliminary Blood 04/11/24 02:50 Urine Culture - Preliminary Urine,Voided Gram Neg Bacilli Assessment and Plan (1) Leukocytosis Current Visit: Yes Status: Acute Code(s): D72.829 - ELEVATED WHITE BLOOD CELL COUNT, UNSPECIFIED SNOMED Code(s): 486333349 (2) UTI (urinary tract infection) Current Visit: Yes Status: Acute Code(s): N39.0 - URINARY TRACT INFECTION, SITE NOT SPECIFIED SNOMED Code(s): 84208957 (3) Positive blood culture Current Visit: Yes Status: Acute Code(s): R78.81 - BACTEREMIA SNOMED Code(s): 510317897 Plan: 1patient presented to hospital with episode of hypertension and tachycardia also noticed to have elevated white count and did have a significantly positive UA concerning for symptomatic infection likely from enteric gram-negative pathogen. 2patient did have a positive blood culture with staph epi more likely skin contamination no need for vancomycin 3patient did have some clinical, the patient white count is trending down, to continue with Rocephin 2 g daily while waiting for the culture to finalize Dictation was produced using [employer] dictation software. please excuse any grammatical, word or spelling errors. Time with Patient: Less than 30
--- NOTE | 2024-04-13 14:36 | P.DS ---
Providers Date of admission: 04/11/24 03:55 Expected date of discharge: 04/13/24 Attending physician: Taisha Langley Consults: 04/11/24 13:22 Consult Physician Routine Consulting Provider: Irma Tilley Consult Reason/Comments: Urinary tract infection Do you want consulting provider notified?: Yes Primary care physician: [facility] Course: Final diagnosis Sepsis secondary to urinary tract infection catheter related, culture showing Klebsiella -Hypovolemic hyponatremia -CVA/ TIA history - muscle wasting, significant contractures noted on admission, cachexia, [facility] -severe protein calorie malnutrition with a bmi of 18.7 -Hypertension -Parkinson's history -Benign prostatic hypertrophy -gi prophylaxis -DVT prophylaxis: Lovenox -No code Discharge disposition Patient is being discharged in a stable condition with guarded prognosis to [facility] where he resides. Patient will be followed with [facility] hospice services. Patient will follow-up with in the outpatient setting upon discharge. Patient is to continue with hemodialysis as scheduled. Total time taken is greater than 35 minutes. Hospital course This is a 83-year-old male who was recently admitted with features of sepsis present on admission secondary to urinary tract infection. Patient chronically has an indwelling Scott catheter and resides at [facility]. Scott catheter was exchanged this admission and urine cultures finalized showing Klebsiella with sensitivities. Patient has been maintained on ceftriaxone with infectious disease following during hospitalization. Discussion was had with family who is also power of [employer] line and CODE STATUS was addressed and patient is no code from previous and they were also inquiring about possible hospice as he has had multiple hospitalizations and significant decline over the last few months. Family has met with hospice and will be transitioning to hospice services with [facility] at [facility]. Please refer to other consultation notes for further HPI. Currently no reports of chest pain, shortness of breath, or palpitations. Patient is afebrile. No reports of nausea or vomiting and patient is tolerating tube feeds. Patient will be going back to [facility] with [facility] hospice services. overall poor prognosis. Physical exam: Gen: This is a 83-year-old male who is awake although nonverbal alert and oriented x 0 to self, well-developed, ill-appearing, elderly appearing, emaciated with cachexia HEENT: Head is atraumatic, normocephalic. Pupils equal, round. Sclerae is anicteric. NECK: Supple. No JVD. No lymphadenopathy. No thyromegaly. LUNGS: Initial breath sounds bilaterally with some bronchial congestion noted, coarse rhonchi. No intercostal retractions. HEART: Regular rate and rhythm. No murmur. ABDOMEN: Soft. Bowel sounds are present. No masses. No tenderness. PEG tube noted patent EXTREMITIES: No pedal edema. No calf tenderness, bilateral lower extremities severely contracted NEUROLOGICAL: Patient is awake, alert and oriented x0. Please refer to medication reconciliation sheet for a list of medications. The impression and plan of care has been dictated by Irena Harman, Nurse Practitioner as directed. Dr. Humphrey MD I have performed a history and examination and MDM of this patient, discussed the same with the dictator, and agree with the dictator's assessment and plan as written ,documented as a scribe. Based on total visit time, I have performed more than 50% of the visit. Patient Condition at Discharge: Stable Plan - Discharge Summary New Discharge Prescriptions: New Scopolamine 1 mg/72 Hr Patch [TransDerm Scop] 1 patch TRANSDERM Q72H patch Continue amLODIPine [Norvasc] 10 mg PEG/G-TUBE DAILY Dipyridamole 50 mg PEG/G-TUBE QID@00,06,12,18 Benazepril HCl 40 mg PEG/G-TUBE DAILY@0800 Finasteride [Proscar] 5 mg PEG/G-TUBE DAILY rOPINIRole HCL [Requip] 0.25 mg PEG/G-TUBE HS Cholecalciferol [Vitamin D3 (25 Mcg = 1000 Iu)] 25 mcg PEG/G-TUBE DAILY@1700 Magnesium Hydroxide [Milk of Magnesia Concentrate] 7,200 mg PEG/G-TUBE DAILY PRN PRN Reason: Constipation Melatonin 10 mg PO HS@2100 Mineral Oil 133 ml RECTAL DAILY PRN PRN Reason: Constipation Na Phos,M-B/Na Phos,Di-Ba [Fleet Adult] 133 ml RECTAL DAILY PRN PRN Reason: Constipation Acetaminophen Tab [Tylenol] 650 mg PEG/G-TUBE BID@0800,1700 Aspirin 81 mg PEG/G-TUBE DAILY Atorvastatin [Lipitor] 40 mg PEG/G-TUBE HS Baclofen 5 mg PEG/G-TUBE TID@0800,1200,1700 Carbidopa-Levodopa 25-100 mg [Sinemet 25-100 mg] 1 tab PEG/G-TUBE TID@0800,1200,1700 PARoxetine ORAL SUSP [Paxil Oral Susp] 10 mg PEG/G-TUBE HS Albuterol Nebulized [Ventolin Nebulized (Accuneb)] 1.25 mg INHALATION RT-QID PRN PRN Reason: Shortness Of Breath bisacodyL [Dulcolax] 10 mg RECTAL DAILY PRN PRN Reason: Constipation carvediloL [Coreg] 6.25 mg PEG/G-TUBE BID@0800,1700 Famotidine [Pepcid] 20 mg PEG/G-TUBE BID@0800,1700 Fluticasone Nasal [place] [Flonase Nasal [place]] 1 spray EA NOSTRIL DAILY QUEtiapine [SEROquel] 25 mg PEG/G-TUBE HS Prilosec 2mg/Ml 20 mg PEG/G-TUBE DAILY Acetaminophen Tab [Tylenol] 650 mg PEG/G-TUBE Q4H PRN PRN Reason: Pain Or Fever > 100.5 Acyclovir [Zovirax] 400 mg PEG/G-TUBE BID Bimatoprost [Lumigan 0.03% Ophth Soln] 1 drop BOTH EYES HS Jevity 1.5 Bowen Liquid 474 ml PEG/G-TUBE TID@0100,0800,1300 Ticagrelor [Brilinta] 90 mg PEG/G-TUBE BID Discontinued allopurinoL [Zyloprim] 100 mg PEG/G-TUBE DAILY Vit C/E/Zn/Coppr/Lutein/Zeaxan [Preservision Areds 2 Softgel] 1 cap PEG/G- TUBE DAILY hydrALAZINE HCL [Apresoline] 50 mg PEG/G-TUBE TID@0800,1400,2200 hydroCHLOROthiazide [Hydrodiuril] 50 mg PEG/G-TUBE DAILY LORazepam 0.5 mg PEG/G-TUBE TID@0600,1200,2100 Discharge Medication List Dipyridamole 50 mg PEG/G-TUBE QID@00,06,12,18 03/05/14 [History] amLODIPine [Norvasc] 10 mg PEG/G-TUBE DAILY 03/05/14 [History] Benazepril HCl 40 mg PEG/G-TUBE DAILY@0800 01/01/21 [History] Finasteride [Proscar] 5 mg PEG/G-TUBE DAILY 01/01/21 [History] rOPINIRole HCL [Requip] 0.25 mg PEG/G-TUBE HS 01/15/21 [History] Cholecalciferol [Vitamin D3 (25 Mcg = 1000 Iu)] 25 mcg PEG/G-TUBE DAILY@1700 01/16/23 [History] Famotidine [Pepcid] 20 mg PEG/G-TUBE BID@0800,1700 01/16/23 [History] Fluticasone Nasal [place] [Flonase Nasal [place]] 1 spray EA NOSTRIL DAILY 01/16/23 [History] Magnesium Hydroxide [Milk of Magnesia Concentrate] 7,200 mg PEG/G-TUBE DAILY PRN 01/16/23 [History] Melatonin 10 mg PO HS@2100 01/16/23 [History] Mineral Oil 133 ml RECTAL DAILY PRN 01/16/23 [History] Na Phos,M-B/Na Phos,Di-Ba [Fleet Adult] 133 ml RECTAL DAILY PRN 01/16/23 [History] QUEtiapine [SEROquel] 25 mg PEG/G-TUBE HS 01/16/23 [History] bisacodyL [Dulcolax] 10 mg RECTAL DAILY PRN 01/16/23 [History] carvediloL [Coreg] 6.25 mg PEG/G-TUBE BID@0800,1700 01/16/23 [History] Acetaminophen Tab [Tylenol] 650 mg PEG/G-TUBE BID@0800,1700 04/11/24 [History] Acetaminophen Tab [Tylenol] 650 mg PEG/G-TUBE Q4H PRN 04/11/24 [History] Acyclovir [Zovirax] 400 mg PEG/G-TUBE BID 04/11/24 [History] Albuterol Nebulized [Ventolin Nebulized (Accuneb)] 1.25 mg INHALATION RT-QID PRN 04/11/24 [History] Aspirin 81 mg PEG/G-TUBE DAILY 04/11/24 [History] Atorvastatin [Lipitor] 40 mg PEG/G-TUBE HS 04/11/24 [History] Baclofen 5 mg PEG/G-TUBE TID@0800,1200,1700 04/11/24 [History] Bimatoprost [Lumigan 0.03% Ophth Soln] 1 drop BOTH EYES HS 04/11/24 [History] Carbidopa-Levodopa 25-100 mg [Sinemet 25-100 mg] 1 tab PEG/G-TUBE TID@0800,1200,1700 04/11/24 [History] Jevity 1.5 Bowen Liquid 474 ml PEG/G-TUBE TID@0100,0800,1300 04/11/24 [History] PARoxetine ORAL SUSP [Paxil Oral Susp] 10 mg PEG/G-TUBE HS 04/11/24 [History] Prilosec 2mg/Ml 20 mg PEG/G-TUBE DAILY 04/11/24 [History] Ticagrelor [Brilinta] 90 mg PEG/G-TUBE BID 04/11/24 [History] Scopolamine 1 mg/72 Hr Patch [TransDerm Scop] 1 patch TRANSDERM Q72H patch 04/13/24 [Rx] Follow up Appointment(s)/Referral(s): Newton Milligan DO [Primary Care Provider] - 1-2 days Activity/Diet/Wound Care/Special Instructions: Patient is returning to [facility] with [facility] services Activity as tolerated Continue with PEG tube Follow-up primary care provider on discharge Discharge Disposition: TRANSFER TO SNF/ECF
== END 2024-04-13 16:46 | DRG 698 ==
LOC: EC 02:18 → 1SOBS 03:55 → 6NMEDSUR 03:55 → UNDOADMOB 03:55 → 6NMEDSUR 04:12 → 5NMEDONC 11:46 → 3SCARD 04-12 01:26
PROVIDERS: ADMIT Hospitalist; ATTEND Hospitalist
DX: T83.511A Infection and inflammatory reaction due to indwelling urethral catheter, initial encounter (principal); A41.59 Other Gram-negative sepsis; E44.0 Moderate protein-calorie malnutrition; E87.20 Acidosis, unspecified; E87.1 Hypo-osmolality and hyponatremia; Z68.1 Body mass index [BMI] 19.9 or less, adult; Z93.1 Gastrostomy status; Z66 Do not resuscitate; E88.A Wasting disease (syndrome) due to underlying condition; G20.A1 Parkinson's disease without dyskinesia, without mention of fluctuations; I10 Essential (primary) hypertension; N39.0 Urinary tract infection, site not specified; B96.1 Klebsiella pneumoniae [K. pneumoniae] as the cause of diseases classified elsewhere; E86.1 Hypovolemia; H91.90 Unspecified hearing loss, unspecified ear; M62.40 Contracture of muscle, unspecified site; N40.0 Benign prostatic hyperplasia without lower urinary tract symptoms; Y73.1 Therapeutic (nonsurgical) and rehabilitative gastroenterology and urology devices associated with adverse incidents; Z79.02 Long term (current) use of antithrombotics/antiplatelets; Z79.82 Long term (current) use of aspirin; Z74.01 Bed confinement status; Z86.73 Personal history of transient ischemic attack (TIA), and cerebral infarction without residual deficits; Z86.14 Personal history of Methicillin resistant Staphylococcus aureus infection; Z79.84 Long term (current) use of oral hypoglycemic drugs; Z79.899 Other long term (current) drug therapy; Z88.8 Allergy status to other drugs, medicaments and biological substances; Z91.013 Allergy to seafood; Z91.030 Bee allergy status
CPT/HCPCS: 36415; 51702; 71045; 80048; 80053; 81001; 82150; 83605; 83690; 83735; 85025; 85610; 85730; 87040; 87077; 87086; 87186; 93005; 96361; 96365; 96366; 99291